=== PATIENT | female | born 1935 | race Caucasian/White ===

== ENCOUNTER 2017-08-24 10:58 | Inpatient (IN) | payer MEDICARE ==
[2017-08-24 12:14] LABS: ABS Basophils 0 10^3/ul (0-0.2); ABS Eosinophils 0 10^3/ul (0-0.6); ABS Lymphocytes 0.6 10^3/ul (1.0-4.8); ABS Monocytes 1.3 10^3/ul (0-0.8); ABS Neutrophils 11.3 10^3/ul (1.5-7.7); ABS Nucleated RBC 0 10^3/ul; Eosinophil % 0 % (0-6); Hematocrit 46 % (35-47); Hemoglobin 14.5 g/dl (12.0-16.0); Lymphocyte % 4.6 % (25-47); Mean Corpuscular HGB Conc 31 g/dl (31-36); Mean Corpuscular Hemoglobin 29 pg (27-31); Mean Corpuscular Volume 93 fL (80-97); Mean Platelet Volume 10 um3 (7.4-10.4); Nucleated Red Blood Cells % 0.1; Platelet Count 191 10^3/ul (150-450); Red Blood Count 4.99 10^6/ul (4.0-5.4); Red Cell Distribution Width 15 % (10.5-15); White Blood Count 13.3 10^3/ul (3.5-10.8)
--- NOTE | 2017-08-24 12:18 | RAD ---
Indication: Shortness of breath. Single frontal view of the chest performed at 1150 hours was reviewed. Comparison is made with previous exam dated March 21, 2011. Cardiomegaly is noted. Interstitial edema consistent with CHF is noted. Bilateral pleural effusions are noted. IMPRESSION: CARDIOMEGALY WITH INTERSTITIAL EDEMA AND BILATERAL PLEURAL EFFUSIONS CONSISTENT WITH CHF.
[2017-08-24 12:19] LABS: INR 1.64 (0.77-1.02)
[2017-08-24 12:32] LABS: EGFR Non-African American 37.1 (>60)
[2017-08-24] MEDS ORDERED: Dextrose 50% Syringe 50 ML* 25 GM/50 ML SYRINGE IV PUSH PRN ×2 (13:14→13:45)
[2017-08-24] MEDS ORDERED: Insulin LISPRO* 1 UNITS UNIT SUBCUT ONE ×2 (13:45→14:01)
[2017-08-24] MEDS ORDERED: Vancomycin per Pharmacy* NOTE FOLLOW UP SCH (14:00)
[2017-08-24] MEDS ORDERED: Ondansetron INJ* 2 MG/ML VIAL IV PRN (15:10)
--- NOTE | 2017-08-24 15:39 | CONSULT ---
Consult Consult: CRITICAL CARE MEDICINE CONSULT Date: 08/24/17 Time: 1445 Discussed with admitting REPORT DEVELOPER. REASON/CHIEF COMPLAINT: hepatitis HISTORY OF PRESENT ILLNESS: 82 yo female with original gallstone pancreatitis as she describes it to me in the past with chronic ailments, DM, who presented with nausea, vomiting. started 3 days ago but worst this am with vomiting. whatever goes in comes out. REVIEW OF SYSTEMS: As per HPI. no recent illness change shes aware of. + weight lost PAST MEDICAL HISTORY: As per HPI. MEDICATIONS: Reviewed. ALLERGIES: Reviewed. SOCIAL HISTORY: Reviewed. quit tob . son in area and grandkids. FAMILY HISTORY: Noncontributory at present. Vital Signs: Reviewed. Neurologic: awake, communicating HEENT: pupils equal. Sclera anicteric. Trachea midline. Cardiovascular: S1 S2 Respiratory: copd appearance, mus wasting, frail; dec at bases. mild wheeze Abdomen: Soft; some RUQ tenderness but No r/g/r. no masses Extremities: Warm. Access: piv LABS: Reviewed. IMAGING: Reviewed. MEDICATIONS: Reviewed. ASSESSMENT: 82 F with Acute hepatitis - r/o ischemic, infectious, toxic; or related to pancreatitis or masses DAVID looking prerenal Acute hypoxic resp failure new suppl O2 (although wears O2 nocturnally at home) B/l pleural effusions Lactic acidosis mild Coagulopathy sec to hepatic insult PLAN: Neuro: tolerating. CV: Mild LA with poor liver clearance at the moment but better perfusion reserve. Needs isotonic fluids. Avoid overload however. 2L bolus and re-assess. Can check echo to ensure R heart from underlying lung disease not our main contributor. Resp: Has significant bullous emphysema with pleural effusions already but intravascularly needs volume and interstially as well, but avoid lung water as able. Expland lungs. IS. Copd adjunctives. Early HFO2 is needed. GI: CT a/p. Previous pancreatitis and enzyme needs. Lipase pending. obtain records as she had recent CT and Mri for stomach work up Renal: DAVID looking pre-renal. K will come down with fluids. ID: Ct a/p pending and dont otherwise see need for abx for abacterial process at this time but f/u post ct for further planning; viral workup. check flu. Reactive wbc, crp and glu however and may have low threshold for empiric but certianly nontoxic at present. Heme: coagulopathy likely sec to liver insult. No bleeding but f/u for risk of dic or at least further consumption. Can reserve vit k. hsq for now. f/u for plt decline. Endo: f/u bg. Lantus needs. SSI. Hold metformin, glipizide. MS: oob as able. Needs ICU for now. will follow up. Supportive and preventative care as ordered. SUP: ppi VTE prophylaxis: heparin Code Status: Full presently Critical Care Time: 45 min FMonica Andrews DO
[2017-08-24] MEDS ORDERED: Vancomycin(*) 1,000 MG in NS 0.9% 250 ML* 250 ML IVPB ONE (16:00)
[2017-08-24] MEDS: Albuterol/Ipratropium NEB.SOL* Albuterol 2.5 MG/Ipratropium 0.5 MG 3 ML INH SCH ×2 (16:07→20:48)
[2017-08-24] MEDS: NS 0.9% 1000 ML* 2,000 ML IV ONE ×2 (16:18→23:42)
[2017-08-24] MEDS: Heparin VIAL(*) 5000 UNITS/ML VIAL (FIVE THOUSAND) SUBCUT SCH ×2 (16:29→21:49)
[2017-08-24] MEDS: Pantoprazole IV* 40 MG IV SCH (16:33)
[2017-08-24] MEDS: Metoclopramide TAB* 10 MG PO SCH (16:34)
--- NOTE | 2017-08-24 16:53 | ECHO ---
Patient: JAIR CORONADO [facility] Rec#: [id number] : 1935 Date: 08/24/2017 Age: 82y Height: 170.18 cm / 67.0 in Weight: 54.43 kg / 120.0 lbs Sex: F BSA: 1.63 Room#: [facility] Admit Date#: 08/24/2017 Type: Inpatient Referring: Kasey Foote Reading: Carlos Diane MD Handbag Stitcher: Rebecca Perez RDCS CC: Jaskaran Urena MD Transthoracic Echocardiogram Indication: CHF, dyspnea BP: 130/75 HR: 73 Rhythm: NSR Findings History: DMII, HLD, COPD, pancreatitis, osteoporosis. Technical Comments: The study quality is fair. The study is technically limited due to patient body habitus. Completed at 1630. Left Ventricle: The left ventricular chamber size is normal. Mild concentric left ventricular hypertrophy is observed. There is moderately decreased left ventricular systolic function. The estimated ejection fraction is 40-45%. There is septal flattening of the interventricular septum consistent with right ventricular volume or pressure overload. Paradoxical septal motion is also seen. Abnormal left ventricular diastolic function is observed. Abnormal left ventricular diastolic filling is observed, consistent with impaired relaxation. Left Atrium: The left atrium is mild to moderately dilated. Right Ventricle: Moderator Band present. The right ventricle is moderate to severely dilated. The right ventricular global systolic function is severely reduced. Flattened in systole and diastole consistent with right ventricular pressure and volume overload. Right Atrium: The right atrium is moderately dilated. Aortic Valve: The aortic valve is trileaflet. The aortic valve leaflets are mildly thickened. There is a trace of aortic regurgitation. There is no evidence of aortic stenosis. Mitral Valve: The mitral valve leaflets are mildly thickened. There is a trace of mitral regurgitation. There is no evidence of mitral stenosis. Tricuspid Valve: The tricuspid valve leaflets are mildly thickened. There is moderate tricuspid regurgitation. The right ventricular systolic pressure is estimated at 53 mmHg. There is evidence of moderate pulmonary hypertension. There is no tricuspid stenosis. Pulmonic Valve: The pulmonic valve appears normal. There is mild pulmonic regurgitation. There is no pulmonic stenosis. Pericardium: There is no significant pericardial effusion. A left pleural effusion is present. Aorta: There is no dilatation of the ascending aorta. There is no dilatation of the aortic arch. The aortic root is normal in size. Pulmonary Artery: The main pulmonary artery appears normal. Venous: The inferior vena cava is dilated. There is less than 50% respiratory change in the inferior vena cava dimension. Conclusions Mild concentric left ventricular hypertrophy is observed. There is moderately decreased left ventricular systolic function. The estimated ejection fraction is 40-45% . There is septal flattening of the interventricular septum consistent with right ventricular volume or pressure overload. Paradoxical septal motion is also seen. Abnormal left ventricular diastolic filling is observed, consistent with impaired relaxation. The left atrium is mild to moderately dilated. The right ventricle is moderate to severely dilated. The right ventricular global systolic function is severely reduced. Flattened in systole and diastole consistent with right ventricular pressure and volume overload. The right atrium is moderately dilated. There is moderate tricuspid regurgitation. There is evidence of moderate pulmonary hypertension. The right ventricular systolic pressure is estimated at 53 mmHg. There is mild pulmonic regurgitation. A left pleural effusion is present. No reports of prior studies are offered for comparison. Measurements Name Value Normal Range RVIDd (AP) 2D 3.3 cm (0.9 - 2.6) RVDdMajor (2D) 5.4 cm (2.2 - 4.4) RAd ISD 4CH 4.6 cm (3.4 - 4.9) RA (A4C)W 4.6 cm (2.9 - 4.6) IVSd (2D) 1.1 cm (0.6 - 1) LVPWd (2D) 1.1 cm (0.6 - 1) LVIDd (2D) 3.9 cm (3.6 - 5.4) LVIDs (2D) 3 cm - LV FS (2D) 24 % (25 - 45) Aortic Annulus 1.8 cm (1.4 - 2.6) Ao root diameter (2D) 3.1 cm (2.1 - 3.5) Ascending Ao 2.9 cm (2.1 - 3.4) Aortic arch 2.4 cm (1.8 - 3.4) LA dimension (AP) 2D 2.4 cm (2.3 - 3.8) LAd ISD 4CH 4.8 cm (2.9 - 5.3) LA ISD 4CH W 5.1 cm (2.5 - 4.5) Name Value Normal Range LA ESV SP 4CH (A/L) 67 ml - LA ESV SP 2CH (A/L) 62 ml - LA ESV BP (A/L) 67 ml - LA ESV BP (A/L) index 41 ml/m2 - LA ESV SP 4CH (MOD) 61 ml - LA ESV SP 2CH (MOD) 60 ml - Name Value Normal Range MV E-wave Vmax 0.52 m/sec - MV deceleration time 207.2 msec - MV A-wave Vmax 0.77 m/sec - MV E:A ratio 0.68 ratio - LV septal e' Vmax 0.04 m/sec - LV lateral e' Vmax 0.09 m/sec - LV E:e' septal ratio 13 ratio - LV E:e' lateral ratio 5.78 ratio - Name Value Normal Range AV Vmax 1.4 m/sec - AV VTI 22.6 cm - AV peak gradient 7.48 mmHg - AV mean gradient 3.44 mmHg - LVOT Vmax 1.12 m/sec - LVOT VTI 14.61 cm - LVOT peak gradient 5.04 mmHg - LVOT mean gradient 1.62 mmHg - ALEJANDRA Vmax 0.6 m/sec - Name Value Normal Range TR Vmax 3.1 m/sec - TR peak gradient 38 mmHg - RAP 15 mmHg - RVSP 53 mmHg - IVC diameter 2.5 cm - Name Value Normal Range PV Vmax 0.67 m/sec - PV peak gradient 1.8 mmHg - AL end-diastolic Vmax 1.49 m/sec -
[2017-08-24] MEDS ORDERED: Pancrelipase (NF) 6,000 UNITS CAP.DR PO SCH (17:00)
[2017-08-24] MEDS: Insulin LISPRO* 1 UNITS UNIT SUBCUT SCH ×2 (17:25→21:49)
[2017-08-24] MEDS: Insulin GLARGINE(*) 1 UNITS UNIT SUBCUT SCH (17:25)
--- NOTE | 2017-08-24 19:06 | HP ---
AMENDED REPORT NOW INCLUDES COSIGNER DESIGNATION - ESIGNED BEFORE ADJUSTMENTS ADMISSION HISTORY AND PHYSICAL: DATE OF ADMISSION: 08/24/17 PRIMARY CARE PHYSICIAN: Jaskaran Urena MD ATTENDING PHYSICIAN: Mynor Mcknight MD * (DICTATED BY MIRNA REYES NP) CHIEF COMPLAINT: Hyperglycemia and shortness of breath. HISTORY OF PRESENT ILLNESS: This is a very pleasant 82-year-old female patient who arrived with emergency medical services for a chief complaint of hyperglycemia from this morning. The patient reports that her blood glucose was 585 at home. The EMS report states her sugar on the way was 446. She has also had bouts with intermittent nausea and vomiting and cold-like symptoms. She does have an unproductive cough and she is feeling general malaise. Apparently, she was on Z- David as an outpatient. She is unsure as to why she was placed on the Z-David, but she also states that she has been having breathing issues on and off since April 2017. At this point, the patient is just complaining of general weakness. Denies any chest pain. Denies shortness of breath; however, her work of breathing is increased and denies any vomiting at this time. Has continued to have intermittent nausea, subjective chills, but no fevers at home. No arthralgias or myalgias, but overall malaise and intense fatigue. PAST MEDICAL HISTORY: Significant for: 1. Type 2 diabetes. 2. Osteoporosis. 3. Hyperlipidemia. 4. COPD. 5. Remote history of gallstone pancreatitis. 6. Breast cancer with mastectomy approximately 40 years ago. PAST SURGICAL HISTORY: 1. Left mastectomy. 2. Cholecystectomy in 2005. HOME MEDICATIONS: Currently takin. Cinnamon bark 500 mg daily. 2. Vitamin B12 500 mcg daily. 3. Lantus 20 units at night. 4. Metformin 750 mg 2 times a day. 5. Reglan 5 mg 3 times a day with meals. 6. Omeprazole 20 mg daily. 7. Pancrelipase, Creon 6000 units 3 times a day with meals. 8. Systane drops 1 drop each eye daily. 9. Glipizide 2.5 mg in the evening and 5 mg in the morning. 10. Also was recently started on Z-David. ALLERGIES: The patient has allergy to CLARITHROMYCIN, LEVOFLOXACIN, and TETRACYCLINE. The patient states she does not know what her reactions are. Again, she appears very fatigued and is having difficulty remembering certain things about her medical history and asks we refer to her son or PCP for further details. FAMILY HISTORY: Mother with cardiac disease. SOCIAL HISTORY: The patient has a remote history of smoking, quit in the 90s. Denies any alcohol use. Denies any illicit drug use. PHYSICAL EXAMINATION GENERAL: The patient is alert but fatigued appearing, otherwise well nourished and in no acute distress. VITAL SIGNS: Currently, blood pressure 130/75, heart rate 80, respiratory rate 22, sating at 100% on 2 L, temperature is 97.7. HEENT: The patient is atraumatic, normocephalic. PERRLA with nonicteric sclerae. NECK: Supple, nontender. No JVD noted. No carotid bruits auscultated. No thyromegaly appreciated. LUNGS: Clear at the apices. Coarse rales at the bases. Mild expiratory wheeze in the right base. CARDIOVASCULAR: S1, S2 are present. No murmurs, gallops, or rubs noted. She has regular sinus rhythm on telemetry with no ectopy. ABDOMEN: Soft, tender right upper quadrant, nondistended. No organomegaly noted. She has positive bowel sounds in all 4 quadrants. : Deferred. MUSCULOSKELETAL: There is no clubbing, no cyanosis, no edema. She has +2 distal pulses palpable on the lower extremities. NEUROLOGIC: She is grossly intact with no focal deficits. I think her memory issues right now are secondary to her acute illness. She does not have any underlying cognitive impairment. PSYCHIATRIC: She is cooperative and appropriate. LABORATORY DATA: Hematology shows WBC's 13.3, RBC's 4.99, hemoglobin of 14.5, hematocrit of 46, platelets 191,000, neutrophils 85.2, lymphocytes 4.6, monos 9.9, absolute neutrophils 11.3, absolute lymphocytes 0.6, and absolute monos 1.3. Sodium 134, potassium is still pending, chloride 96, CO2 of 26, BUN 61, creatinine 1.37, GFR is 37.1, glucose 371; however, this is being redrawn. Lactic acid is 2.2. Calcium 9.0, magnesium 2.0, bilirubin 1.9. Liver function is pending. Troponin is 0.04. CRP is 22.96. BNP is 1070. Total protein 6.5, albumin 3.9, globulin 2.6, TSH is also pending. Coags: INR is mildly elevated at 1.64. IMAGING: Chest x-ray showing bilateral pleural effusions with some pulmonary vascular congestion, some interstitial edema. Even though this is not on the radiology note, it does appear like she possibly has bibasilar infiltrates. EKG is showing sinus rhythm with atypical left bundle-branch block. IMPRESSION: This is an 82-year-old female patient who presents with acute shortness of breath, also extreme fatigue, nausea, and vomiting. The patient appears to be fluid overloaded. She has not had a history of congestive heart failure; however, by chest x-ray and symptoms and also with the elevated BNP, it appears that she is currently in failure. She has not had a recent echocardiogram. She cannot remember the last time that she had one, so she is going to be admitted. DIAGNOSES: 1. Congestive heart failure. 2. Bibasilar infiltrates. 3. Hyperglycemia. 4. General weakness. 5. Nausea and vomiting. 6. History of pancreatitis. 7. Gastroesophageal reflux disease. 8. Leukocytosis 9. Abdominal Pain PLAN: Admitted to medical service for inpatient treatment. Being that she failed her trial of azithromycin as an outpatient, we will cover her empirically with vancomycin pending blood cultures and sputum cultures at this time. If there is a change, then antibiotic therapy will be tailored based on those cultures. We will continue the patient's home medications of her, omeprazole, metoclopramide and her long-acting insulin. She has also been placed on sliding scale giving her 10 units of insulin now for her current high sugar and then she will be maintained on sliding scale with her long acting insulin. Again, this can be tailored depending on how her sugars run. We will hold on her supplements at this time and hold her metformin and her glipizide given her acute illness. We are pending also urinalysis and Legionella and Strep pneumo antigens in her urine. Even though she appears to be intravascularly dry, she did have a fluid bolus on the way into the ER. She will be given Lasix 20 mg daily and then pending her echocardiogram, may consider consulting Cardiology for this new diagnosis of heart failure. We will follow her daily labs, especially following her renal function, which seems to be elevated, pre-renal. She has not had a history of kidney disease in the past. Magnesium seems to be in good range right now. Also, we will be looking at her TSH when that comes back. Continue to trend her troponins for [address] her on a consistent carbohydrate diet with no sugar added. For DVT prophylaxis, she has been placed on heparin 5000 q.8 hours. She is a full code. Her medical healthcare proxy is her son, Ki, and also her roommate, her name is Alysa Diallo. They would be her points of contact in case of emergency. The rest of the patient's course would be determined by further diagnostics, laboratories and any other input from other providers as warranted during this admission. TIME SPENT: I had spent an excess of 75 minutes admitting this patient, 50% of which was [id number] with the rest of the time evaluating and implementing her plan of care. This plan has been discussed with Dr. Mynor Mcknight, the attending on this case who was in agreement with the plan. MIRNA HENSLEYMayur, METALLURGICAL SPECIALIST [id number]/CPS #: [id number] UPDATE: After initial admission, liver function tests came back elevated ECJ=7249, ALT= 1630. Patient reports no history of ingestion, no excess tylenol use, no report of liver disease. Concern that her pancreatitis may be returning vs. other liver etiology. Also K is elevated, as well as INR. Patient will require aggressive fluids, but in the setting of her heart failure, we will upgrade to ICU. I have ordered hepatitis panel, lipase, blood cultures and CT abdomen/ phased liver study with contrast. Per Dr. Andrews, Personal Computer Network Analyst, we will also add CT PE study, although it is less likely that she has had a PE. This plan was coordinated with Dr. Andrews and Dr. Mcknight. JORDAN
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
[2017-08-24] MEDS: COLESEVELAM 625 MG PO SCH (21:56)
[2017-08-24 22:42] LABS: Urine Appearance Cloudy; Urine Blood 1+ (Negative); Urine Color Amber; Urine Ketones Negative (Negative); Urine Protein 2+(100 mg/dL) (Negative); Urine Specific Gravity 1.019 (1.010-1.030); Urine Urobilinogen Negative (Negative)
[2017-08-25] MEDS ORDERED: Vancomycin(*) 750 MG in NS 0.9% 250 ML* 250 ML IVPB SCH (02:00)
[2017-08-25] MEDS: Albuterol/Ipratropium NEB.SOL* Albuterol 2.5 MG/Ipratropium 0.5 MG 3 ML INH SCH ×4 (02:28→19:27)
[2017-08-25 05:38] LABS: ABS Basophils 0 10^3/ul (0-0.2); ABS Eosinophils 0 10^3/ul (0-0.6); ABS Lymphocytes 0.9 10^3/ul (1.0-4.8); ABS Monocytes 1.1 10^3/ul (0-0.8); ABS Nucleated RBC 0.1 10^3/ul; Eosinophil % 0.1 % (0-6); Hematocrit 42 % (35-47); Hemoglobin 13.6 g/dl (12.0-16.0); Lymphocyte % 8.2 % (25-47); Mean Corpuscular HGB Conc 32 g/dl (31-36); Mean Corpuscular Hemoglobin 30 pg (27-31); Mean Corpuscular Volume 92 fL (80-97); Mean Platelet Volume 10 um3 (7.4-10.4); Nucleated Red Blood Cells % 0.6; Platelet Count 149 10^3/ul (150-450); Red Blood Count 4.59 10^6/ul (4.0-5.4); Red Cell Distribution Width 15 % (10.5-15)
[2017-08-25 05:43] LABS: INR 1.43 (0.77-1.02)
[2017-08-25 05:54] LABS: EGFR Non-African American 54.6 (>60)
[2017-08-25] MEDS: Heparin VIAL(*) 5000 UNITS/ML VIAL (FIVE THOUSAND) SUBCUT SCH ×2 (06:07→22:26)
[2017-08-25] MEDS: Insulin LISPRO* 1 UNITS UNIT SUBCUT SCH ×4 (07:45→21:47)
[2017-08-25] MEDS: Metoclopramide TAB* 10 MG PO SCH ×3 (08:00→17:00)
--- NOTE | 2017-08-25 08:56 | PN ---
Subjective Date of Service: 08/25/17 Interval History: Pt appears lethargic, rather poor historian, no event at night, refused CT last night Objective Active Medications: Albuterol/Ipratropium (Duoneb (Albuterol 2.5 Mg/Ipratropium 0.5 Mg)) 1 neb INH Q6H [facility] Last Admin: 08/25/17 08:22 Dose: Not Given Colesevelam HCl (Welchol(Nf)) 625 mg PO BID [facility] Last Admin: 08/24/17 21:56 Dose: 625 mg Cyanocobalamin (Vitamin B12 Tab*) 500 mcg PO DAILY [facility] Dextrose (D50w Syringe 50 Ml*) 12.5 gm IV PUSH .FOR FS < 60 - SS PRN PRN Reason: FS < 60 Enoxaparin Sodium (Lovenox(*)) 60 mg SUBCUT Q12H [facility] Vancomycin HCl 750 mg/ Sodium (Chloride) 250 mls @ 166.667 mls/hr IVPB Q12H [facility] Last Admin: 08/25/17 01:53 Dose: 166.667 mls/hr Insulin Glargine (Lantus(*)) 20 units SUBCUT QPM [facility] Last Admin: 08/24/17 17:25 Dose: 20 unit Insulin Human Lispro (Humalog*) 0 units SUBCUT ACHS [facility] PRN Reason: Protocol Last Admin: 08/25/17 07:45 Dose: Not Given Metoclopramide HCl (Reglan Tab*) 5 mg PO TID WITH MEALS [facility] Last Admin: 08/24/17 16:34 Dose: Not Given Morphine Sulfate (Morphine Inj (Syringe)*) 2 mg IV Q2H PRN PRN Reason: PAIN - MODERATE Ondansetron HCl (Zofran Inj*) 4 mg IV Q6H PRN PRN Reason: NAUSEA Pantoprazole Sodium (Protonix Iv*) 40 mg IV Q24H [facility] Last Admin: 08/24/17 16:33 Dose: 40 mg Pharmacy Consult (Vancomycin Per Pharmacy*) 1 note FOLLOW UP .VANC PER PHARMACY [facility] Pharmacy Profile Note (Vancomycin Trough Check) 1 note FOLLOW UP 1330 ONE Stop: 08/26/17 13:31 Polyvinyl Alcohol (Polyvinyl Alcohol 1.4% Opth*) 1 drop BOTH EYES DAILY [facility] Vital Signs - 8 hr 08/25/17 08/25/17 08/25/17 01:00 01:30 02:00 Temperature Pulse Rate 78 78 82 Respiratory 21 17 22 Rate Blood Pressure 108/70 108/66 117/72 (mmHg) O2 Sat by Pulse 94 96 95 Oximetry 08/25/17 08/25/17 08/25/17 02:01 02:30 03:00 Temperature Pulse Rate 83 80 78 Respiratory 18 18 21 Rate Blood Pressure 121/69 112/67 (mmHg) O2 Sat by Pulse 96 95 94 Oximetry 08/25/17 08/25/17 08/25/17 03:30 04:00 04:01 Temperature 97.6 F Pulse Rate 81 79 81 Respiratory 21 20 21 Rate Blood Pressure 120/74 114/69 (mmHg) O2 Sat by Pulse 93 93 93 Oximetry 08/25/17 08/25/17 08/25/17 04:30 05:00 05:30 Temperature Pulse Rate 80 76 73 Respiratory 19 25 21 Rate Blood Pressure 123/68 109/68 113/66 (mmHg) O2 Sat by Pulse 90 96 97 Oximetry 08/25/17 08/25/17 08/25/17 06:00 06:01 07:33 Temperature 98.4 F Pulse Rate 78 78 Respiratory 16 15 Rate Blood Pressure 112/69 (mmHg) O2 Sat by Pulse 95 95 Oximetry Oxygen Devices in Use Now: Nasal Cannula Appearance: 82 yo F in nAD, aAOx2, lethargic Eyes: No Scleral Icterus, PERRLA Ears/Nose/Mouth/Throat: NL Teeth, Lips, Gums, Mucous Membranes Moist Neck: NL Appearance and Movements; NL JVP Respiratory: Symmetrical Chest Expansion and Respiratory Effort, - - rales at RLL, crackles at LLL Cardiovascular: RRR, - Abdominal: NL Sounds; No Tenderness; No Distention, No Hepatosplenomegaly Lymphatic: No Cervical Adenopathy Extremities: No Clubbing, Cyanosis, - - tracxe R ankle edema L ankle +1 pitting edema Neurological: NL Muscle Strength and Tone Result Diagrams: 08/25/17 05:18 08/25/17 05:18 Additional Lab and Data: Lab Results 08/24/17 08/24/17 08/24/17 Range/Units 11:47 11:47 11:47 WBC 13.3 H (3.5-10.8) 10^3/ul RBC 4.99 (4.0-5.4) 10^6/ul Hgb 14.5 (12.0-16.0) g/dl Hct 46 (35-47) % MCV 93 (80-97) fL MCH 29 (27-31) pg MCHC 31 (31-36) g/dl RDW 15 (10.5-15) % Plt Count 191 (150-450) 10^3/ul MPV 10 (7.4-10.4) um3 Neut % (Auto) 85.2 H (38-83) % Lymph % (Auto) 4.6 L (25-47) % [place] % (Auto) 9.9 H (0-7) % Eos % (Auto) 0 (0-6) % Baso % (Auto) 0.3 (0-2) % Absolute Neuts (auto) 11.3 H (1.5-7.7) 10^3/ul Absolute Lymphs (auto) 0.6 L (1.0-4.8) 10^3/ul Absolute Monos (auto) 1.3 H (0-0.8) 10^3/ul Absolute Eos (auto) 0 (0-0.6) 10^3/ul Absolute Basos (auto) 0 (0-0.2) 10^3/ul Absolute Nucleated RBC 0 10^3/ul Nucleated RBC % 0.1 INR (Anticoag Therapy) (0.77-1.02) Sodium 134 (133-145) mmol/L Potassium 5.6 H (3.5-5.0) mmol/L Chloride 96 L (101-111) mmol/L Carbon Dioxide 26 (22-32) mmol/L Anion Gap 12 H (2-11) mmol/L BUN 61 H (6-24) mg/dL Creatinine 1.37 H (0.51-0.95) mg/dL Est GFR ( Amer) 47.7 (>60) Est GFR (Non-Af Amer) 37.1 (>60) BUN/Creatinine Ratio 44.5 H (8-20) Glucose 371 H (70-100) mg/dL Lactic Acid 2.2 H* (0.5-2.0) mmol/L Calcium 9.0 (8.6-10.3) mg/dL Magnesium 2.0 (1.9-2.7) mg/dL Total Bilirubin 1.90 H (0.2-1.0) mg/dL AST 2437 H (13-39) U/L ALT 1630 H (7-52) U/L Alkaline Phosphatase 98 (34-104) U/L Troponin I 0.04 H* (<0.04) ng/mL C-Reactive Protein 22.96 H (< 5.00) mg/L B-Natriuretic Peptide ( - 100) pg/mL Total Protein 6.5 (6.4-8.9) g/dL Albumin 3.9 (3.2-5.2) g/dL Globulin 2.6 (2-4) g/dL Albumin/Globulin Ratio 1.5 (1-3) Lipase Cancelled TSH 5.39 (0.34-5.60) mcIU/mL Salicylates < 2.50 (<30) mg/dL Acetaminophen < 15 mcg/mL 08/24/17 08/24/17 Range/Units 11:47 11:47 WBC (3.5-10.8) 10^3/ul RBC (4.0-5.4) 10^6/ul Hgb (12.0-16.0) g/dl Hct (35-47) % MCV (80-97) fL MCH (27-31) pg MCHC (31-36) g/dl RDW (10.5-15) % Plt Count (150-450) 10^3/ul MPV (7.4-10.4) um3 Neut % (Auto) (38-83) % Lymph % (Auto) (25-47) % [place] % (Auto) (0-7) % Eos % (Auto) (0-6) % Baso % (Auto) (0-2) % Absolute Neuts (auto) (1.5-7.7) 10^3/ul Absolute Lymphs (auto) (1.0-4.8) 10^3/ul Absolute Monos (auto) (0-0.8) 10^3/ul Absolute Eos (auto) (0-0.6) 10^3/ul Absolute Basos (auto) (0-0.2) 10^3/ul Absolute Nucleated RBC 10^3/ul Nucleated RBC % INR (Anticoag Therapy) 1.64 H (0.77-1.02) Sodium (133-145) mmol/L Potassium (3.5-5.0) mmol/L Chloride (101-111) mmol/L Carbon Dioxide (22-32) mmol/L Anion Gap (2-11) mmol/L BUN (6-24) mg/dL Creatinine (0.51-0.95) mg/dL Est GFR ( Amer) (>60) Est GFR (Non-Af Amer) (>60) BUN/Creatinine Ratio (8-20) Glucose (70-100) mg/dL Lactic Acid (0.5-2.0) mmol/L Calcium (8.6-10.3) mg/dL Magnesium (1.9-2.7) mg/dL Total Bilirubin (0.2-1.0) mg/dL AST (13-39) U/L ALT (7-52) U/L Alkaline Phosphatase (34-104) U/L Troponin I (<0.04) ng/mL C-Reactive Protein (< 5.00) mg/L B-Natriuretic Peptide 1070 H ( - 100) pg/mL Total Protein (6.4-8.9) g/dL Albumin (3.2-5.2) g/dL Globulin (2-4) g/dL Albumin/Globulin Ratio (1-3) Lipase TSH (0.34-5.60) mcIU/mL Salicylates (<30) mg/dL Acetaminophen mcg/mL Microbiology and Other Data: Microbiology 08/24/17 22:18 Legionella Urinary Antigen - Final Urine Negative Legionella Antigen Streptococcus pneumoniae Ag Screen - Final Negative S. pneumo Antigen 08/24/17 19:00 Influenza Types A,B Antigen (MILLY) - Final Nasal Specimen received for Influenza A/B Molecular testing Assess/Plan/Problems-Billing Assessment: 82 yo F with h/o COPD(on 02 at night) , DM2, pancreatic insufficiency and pseudocyst, s/p cholecystectomy for gallstone pancreatitis presents with SOB noted to have markedly elevated LFT's - Patient Problems (1) Cor pulmonale Comment: pt has increased pulm pressures and RV overload on Echo EF 40-45%, suspect cor pulmonale. CTA to r/o PE ponding, but will anticoagulate empirically with Lovenox for now. Pt apparently refused to have the CT done last night (2) LFT elevation Comment: Marked, consistent with hepatitis, likely due to passsive liver congestion Acute hepatitis panel pending appreciate Dr. Tony and Juliana's consults CT abd pelvis pending (3) Dyslipidemia Comment: Welchol stopped-can cause LFT elevation (4) DM2 (diabetes mellitus, type 2) Comment: oral hypoglycemics held cont ISS, Lantus (5) Hepatic encephalopathy Comment: pt is lethargic today, suspect hepatic encephalopathy, will start Lactulose once able to take PO after CT Ammonia 76 (6) Acute hypoxemic respiratory failure Comment: possible PE, also cor pulmonale No evidence of infection so far, will stop Vanco (7) Pancreatic insufficiency Comment: cont pancrelipase (8) DVT prophylaxis Comment: Lovenox Status and Disposition: inpatient
[2017-08-25] MEDS: Cyanocobalamin TAB* 500 MCG PO SCH (09:00)
[2017-08-25] MEDS: Artificial Tears* 15 ML BTL BOTH EYES SCH (09:00)
[2017-08-25] MEDS ORDERED: Omeprazole CAP* 20 MG PO SCH (09:00)
[2017-08-25] MEDS: COLESEVELAM 625 MG PO SCH ×2 (09:00→21:37)
[2017-08-25] MEDS: Lactulose* 15 ML UDC PO SCH ×3 (09:00→21:36)
[2017-08-25] MEDS ORDERED: Enoxaparin(*) 60 MG/0.6 ML SYR SUBCUT SCH (09:00)
[2017-08-25] MEDS ORDERED: Iodixanol* (CONTRAST) 320 MG/ML 100 ML SDV IV ONE (12:26)
[2017-08-25] MEDS: Pancrelipase CAP* 5,000 UNITS CAP PO SCH ×2 (13:00→17:00)
--- NOTE | 2017-08-25 13:39 | RAD ---
INDICATION: Chest pain and shortness of breath. COMPARISON: Comparison is made with a prior CT angiogram of the chest from June 15, 2013 and a prior chest x-ray study from August 24, 2017. TECHNIQUE: A CT angiogram of the chest was performed with intravenous following intravenous injection of 100 ml of Visipaque 320 nonionic contrast. Contiguous axial sections were obtained from the lung apices through the lung bases. Images were reconstructed in the coronal and sagittal planes. FINDINGS: There is motion artifact limiting evaluation of the pulmonary arteries. This especially limits evaluation of the basilar segmental arteries. There is enlargement of the central pulmonary arteries consistent with pulmonary artery hypertension. No intraluminal filling defect or pulmonary embolism is seen. The heart is moderately enlarged. No pericardial effusion is present. There appears to be left ventricular hypertrophy and enlargement of both the right ventricle and right atrium. There are coronary artery calcifications present. The thoracic aorta is normal in caliber and demonstrates homogeneous contrast opacification. No significant enlarged mediastinal or hilar lymph nodes are seen. There is moderate centrilobular emphysematous change with a large emphysematous bulla present in the region of the right middle lobe. There are moderate to large bilateral pleural effusions and dependent bilateral lower lobe infiltrates most consistent with atelectasis. There is mild prominence of the interstitial markings. These findings are most consistent with congestive heart failure. There are bridging syndesmophytes throughout the dorsal spine suggesting the possibility of ankylosing spondylitis. There is a chronic compression fracture of the T5 vertebral body. No other focal osseous abnormalities are seen. IMPRESSION: 1. LIMITED STUDY, NO PULMONARY EMBOLISM IS SEEN. 2. MODERATE TO LARGE BILATERAL PLEURAL EFFUSIONS AND FINDINGS MOST CONSISTENT WITH CONGESTIVE HEART FAILURE. 3. CARDIOMEGALY AND FINDINGS SUGGESTIVE OF PULMONARY ARTERY HYPERTENSION.
--- NOTE | 2017-08-25 14:33 | RAD ---
INDICATION: Abdominal pain elevated liver function tests. COMPARISON: Comparison is made with a prior CT of the abdomen and pelvis from July 24, 2007. TECHNIQUE: A CT scan of the abdomen was performed without and with intravenous contrast enhancement and with oral contrast. The contrast enhanced portion of the exam was performed during the arterial, portal venous phases and a delayed dataset was obtained. The pelvis is included on the portal venous phase images. The exam was performed following intravenous injection of 100 ml of Visipaque 320 nonionic contrast. Contiguous axial sections were obtained from the lung bases through the tops of the iliac crests. Images were reconstructed in the coronal and sagittal planes. FINDINGS: Images at the lung bases demonstrate bilateral pleural effusions and dependent bilateral lower lobe infiltrates. The liver and spleen are normal in size without significant focal abnormality. The patient is status post cholecystectomy. No intra or extrahepatic ductal distention is seen. There is a hypodense mass in the pancreatic tail with likely marked expansion of the pancreatic duct in this region. This appears to be the remnant of a large pseudocyst that is seen on a study from July 24, 2007. The adrenal glands appear to be within normal limits. The right kidney appears malrotated and slightly ptotic in location. No hydronephrosis is present. There is a small left renal cyst. The aorta is normal in caliber with moderate calcific plaque present. No significant enlarged retroperitoneal lymph nodes are seen. The stomach small and large bowel appear nondistended. There is moderate to severe sigmoid diverticulosis without evidence for diverticulitis. No free intraperitoneal air or fluid is seen. There is diffuse body wall edema. No significant focal osseous abnormality is seen.. There is a area of soft tissue calcification in the posterior medial left gluteal fold possibly from prior injections IMPRESSION: 1. NO EVIDENCE FOR FOCAL HEPATIC LESION. 2. STATUS POST CHOLECYSTECTOMY. 3. HYPODENSE LESION IN THE PANCREATIC TAIL CONSISTENT WITH A REMNANT FROM A PREVIOUSLY DESCRIBED LARGE PSEUDOCYST. 4. ANASARCA. 5. NO EVIDENCE FOR ACUTE ABDOMINAL FINDING.
[2017-08-25] MEDS: Furosemide IV* 10 MG/ML VIAL (40 MG) IV SCH (14:46)
--- NOTE | 2017-08-25 14:52 | PN ---
Progress Note - Progress Note Date of Service: 08/25/17 Note: CRITICAL CARE MEDICINE CONSULT Date: 08/25/17 Time: 1110 SUBJECTIVE: patient seen and examined this am. Tolerating. conversive but appearing tired overall without acute distress. Vital Signs: Reviewed. Neurologic: awake, communicating (as above) HEENT: pupils equal. Sclera anicteric. Trachea midline. Cardiovascular: S1 S2, 2/6 aníbal, inc jvp Respiratory: dec at bases; poor effort; upper lobe resps without wheeze Abdomen: Soft; RUQ tenderness gone today. Extremities: Warm. Access: picc LABS: Reviewed. IMAGING: Reviewed. MEDICATIONS: Reviewed. ASSESSMENT: 82 F with Acute hepatitis - r/o ischemic, infectious, toxic; or less likely related to pancreatitis or masses DAVID looking prerenal with some improvement Acute hypoxic resp failure new suppl O2 (although wears O2 nocturnally at home) Cor pulmonale Bullous emphysema B/l pleural effusions Lactic acidosis - recovered Coagulopathy - sec to hepatic insult? PLAN: Neuro: tolerating but mild encephalopathy. CV: perfusing but poor reserve. Has adequete(it would seem) intravasc vol with stable Hr, bp at least. interstially holding onto volume; see if she desires to keep for right heart or can mobilize and question diuretic needs. has significant effusions and poor mobilization there. Resp: for CTA to r/o pe. pretest in moderate range and given lovenox while awaiting scans. cor pulmonale likely sec to lung disease, but at risk for vte disease. worried her lung status is quite weak. f/u ct. Expland lungs. IS. Copd adjunctives.. GI: CT a/p pending. Previous pancreatitis. lipase benign. ct scan from about a month ago with ok liver and mri not indicating panc ca. looking more congestive potentially vs ischemic nature. ct may help deliniate further. at least enzymes down but given acute nature ammonia and encephlaopthy may still rise. lactulose. f/u level richard Renal: DAVID with some fluid responsiveness but trying not to overload. poor balanvce here and renal function may still falter. ID: work up but no abx needs i see Heme: coagulopathy mildly improved. can sort post ct. Endo: f/u bg, Lantus needs. SSI. Holding metformin, glipizide. MS: oob as able. ICU for now Supportive and preventative care as ordered. SUP: ppi VTE prophylaxis: heparin Code Status: Full presently Critical Care Time: 30 min ADDENDUM: Post CT scan. no pe to my eye. effusions and empysema not surprising. pt clinically obtunded now however with combination likely from failing ventilation with CO2 rise, effusions and laying flat and perhaps increased hepatic encephalopathy. Dismal status but best for her to try bipap now to see if we can rescue with time and clearance. If she fails to intubation, with her cor pulmonlae and lung disease, she will only do worse. primary team contacting family. D/w Dr. Melendez. Serenity Andrews, DO
--- NOTE | 2017-08-25 15:12 | PN ---
Progress Note - Progress Note Date of Service: 08/25/17 Note: CRITICAL CARE MEDICINE Date: 08/25/17 Time: 1500 D/w son Kingston Duenas via the phone. discussed pts dynamics and ailment presently. He is realistic, and states mom would be too. Advised to treat, use bipap for now and see if we can reverse this acute on chronic component today; but if failing, unlikely to amount response to thrive due to cardiopulm failures leading to liver and renal failures. We agree to support as DNR, DNI, trial niv. Molst reflective of conversation. Code Status: DNR, DNI Critical Care Time: 20 min Serenity Andrews DO
[2017-08-25 16:44] LABS: Hematocrit 46 % (35-47); Hemoglobin 14.5 g/dl (12.0-16.0); Mean Corpuscular HGB Conc 32 g/dl (31-36); Mean Corpuscular Hemoglobin 30 pg (27-31); Mean Corpuscular Volume 93 fL (80-97); Mean Platelet Volume 10 um3 (7.4-10.4); Platelet Count 138 10^3/ul (150-450); Red Blood Count 4.92 10^6/ul (4.0-5.4); Red Cell Distribution Width 15 % (10.5-15); White Blood Count 10.8 10^3/ul (3.5-10.8)
[2017-08-25 17:20] LABS: ABS Basophils 0 10^3/ul (0-0.2); ABS Eosinophils 0 10^3/ul (0-0.6); ABS Lymphocytes 0.7 10^3/ul (1.0-4.8); ABS Neutrophils 9.1 10^3/ul (1.5-7.7); ABS Nucleated RBC 0.1 10^3/ul; Eosinophil % 0 % (0-6); Lymphocyte % 6.6 % (25-47); Nucleated Red Blood Cells % 0.7
[2017-08-25] MEDS: Insulin GLARGINE(*) 1 UNITS UNIT SUBCUT SCH (19:41)
[2017-08-25] MEDS: Pantoprazole IV* 40 MG IV SCH (21:47)
--- NOTE | 2017-08-25 22:23 | CONS ---
GASTROENTEROLOGY CONSULTATION REPORT: DATE OF CONSULT: 08/25/17 ATTENDING PHYSICIAN: Mynor Mcknight MD PRIMARY CARE PHYSICIAN: Jaskaran Urena MD REASON FOR CONSULT: Acute liver failure. HISTORY OF PRESENT ILLNESS: The patient is an 82-year-old female who arrived to the emergency department with complaints of significant hyperglycemia with intermittent complaints of nausea and vomiting. She had recently been diagnosed with an upper respiratory infection and was given a Z-David as an outpatient. She apparently has been having breathing issues that have been progressively worsening over the last few months. Gastroenterology was consulted for abnormal liver enzymes that were noted on laboratory work in the emergency room. AST was 2437 and ALT 1630. According to the medical records, the patient was also complaining of generalized weakness and dyspnea on exertion , subjective chills; however, there were no documented fevers at home. She is currently in the intensive care unit for hyperglycemia, respiratory distress, somnolence and significantly elevated liver enzymes. PAST MEDICAL HISTORY: 1. Type 2 diabetes. 2. Hyperlipidemia. 3. COPD. 4. Osteoporosis. 5. History of gallstone pancreatitis with large pseudocyst s/p resection. 6. Breast cancer with mastectomy. PAST SURGICAL HISTORY: 1. Left mastectomy. 2. Cholecystectomy in 2005. 3. Large pseudocyst resection. HOME MEDICATIONS: 1. Cinnamon bark. 2. Vitamin B12. 3. Lantus. 4. Metformin. 5. Reglan. 6. Omeprazole. 7. Pancrelipase. 8. Systane. 9. Glipizide. 10. Z-David. ALLERGIES: CLARITHROMYCIN, LEVOFLOXACIN, TETRACYCLINE, unknown reactions due to patient being a poor historian. FAMILY HISTORY: Mother with cardiac disease. SOCIAL HISTORY: She quit tobacco in the . Denies recreational drug use and alcohol use. REVIEW OF SYSTEMS: On a 14-point scale has been reviewed, all pertinent positives and negatives are noted above in the HPI. PHYSICAL EXAM: Generally, the patient appears to be well nourished. She is slightly somnolent and fatigued appearing; however, she does respond to her name and is answering questions appropriately. Current vital signs: Temperature 98.4, heart rate 80, respirations 17, oxygenation is 96% on room air , blood pressure is 125/73. HEENT: Anicteric sclerae bilaterally. Atraumatic , normocephalic. Neck: Supple. Lungs: Clear to auscultation bilaterally. Cardiovascular Exam: Regular rate and rhythm. Abdomen: Soft, nontender, nondistended. No rebound, guarding or rigidity. Positive bowel sounds in 4 quadrants. No hepatomegaly. No fluid wave. Musculoskeletal: No clubbing, cyanosis, or edema. Neurological Exam: There are no gross focal deficits. She is currently slightly somnolent, but answering questions appropriately. DIAGNOSTIC STUDIES/LAB DATA: WBC is 10.8, hemoglobin 14.5, hematocrit 46, platelets 138. INR 1.43. Sodium 138, potassium 4.7, chloride 105, CO2 30, anion gap 4, BUN 53, creatinine 0.98. Calcium 7.9, phosphorus 5.2, magnesium 2.0. Total bilirubin 1.20, direct bilirubin 0.70, indirect bilirubin 0.5, AST 1527, ALT 1426, alkaline phosphatase 76, ammonia 76. Troponin x2 0.04. Albumin 3.6, globulin 2.2. Influenza A and B are negative. CT of the abdomen, pelvis, and chest revealed no evidence of focal hepatic lesions, status post cholecystectomy, hypodense lesions in the pancreatic tail consistent with a remnant from a previously described large pseudocyst, anasarca. No acute abdominal findings. There were [id number] bilateral pleural effusions consistent with congestive heart failure, cardiomegaly with finding suggestive of pulmonary artery hypertension. ASSESSMENT AND PLAN: The patient is an 82-year-old female with a past medical history of chronic obstructive pulmonary disease, diabetes type 2, previous history of a large pancreatic pseudocyst s/p resection with gallstone pancreatitis, status post cholecystectomy, breast cancer with mastectomy, who presented to [facility] ER with hyperglycemia, progressive dyspnea on exertion, progressive weakness with recent treatment of an upper respiratory infection. The patient was admitted to the intensive care unit for further evaluation and treatment due to mild respiratory distress, significantly elevated liver enzymes with coagulopathy suggestive of acute liver failure, and hyperglycemia. The transaminases have since down trended from admission. Her alkaline phosphatase remains normal and her total bilirubin has decreased since admission and remains only mildly elevated along with the patient's INR. The patient's hepatitis panel is currently pending. The patient had been Welchol, which has been discontinued due to significantly elevated liver tests. Lactulose was initiated after CT imaging. Her current ammonia level is 76. Hopefully, her somnolence will improve after treatment. Etiology of the patient 's elevated liver enzymes may also be secondary to the patient's congestive heart failure through congestive hepatopathy given anasarca and large pleural effusions seen on CT imaging. Again, her liver enzymes have been down trending in addition to her INR. We will continue to monitor these levels. Will hold off on extensive genetic and autoimmune liver work-up for due to acuity of acute liver failure and patient's age for now. There has been no documented evidence of hypotension to suggest ischemia at this time but will monitor. Will also monitor patient's respiratory status. Further workup and treatment will be provided as the patient's clinical course progresses. Thank you, Dr. Melendez and Dr. Andrews, for allowing us to participate in the care of your patient. If you should have any further questions or concerns, please do not hesitate to contact us. [id number]/[facility] #: [id number] JORDAN
[2017-08-26] MEDS: Albuterol/Ipratropium NEB.SOL* Albuterol 2.5 MG/Ipratropium 0.5 MG 3 ML INH SCH ×4 (01:33→18:58)
[2017-08-26] MEDS: Heparin VIAL(*) 5000 UNITS/ML VIAL (FIVE THOUSAND) SUBCUT SCH ×3 (06:26→22:03)
[2017-08-26 06:49] LABS: Hematocrit 44 % (35-47); Hemoglobin 13.8 g/dl (12.0-16.0); Mean Corpuscular HGB Conc 32 g/dl (31-36); Mean Corpuscular Hemoglobin 29 pg (27-31); Mean Corpuscular Volume 93 fL (80-97); Mean Platelet Volume 9 um3 (7.4-10.4); Platelet Count 119 10^3/ul (150-450); Red Blood Count 4.71 10^6/ul (4.0-5.4); Red Cell Distribution Width 15 % (10.5-15); White Blood Count 9.4 10^3/ul (3.5-10.8)
[2017-08-26 07:02] LABS: EGFR Non-African American 72.1 (>60)
[2017-08-26 07:27] LABS: ABS Basophils 0 10^3/ul (0-0.2); ABS Eosinophils 0 10^3/ul (0-0.6); ABS Lymphocytes 0.4 10^3/ul (1.0-4.8); ABS Neutrophils 7.9 10^3/ul (1.5-7.7); ABS Nucleated RBC 0.1 10^3/ul; Eosinophil % 0.1 % (0-6); Lymphocyte % 4.4 % (25-47); Nucleated Red Blood Cells % 0.5
[2017-08-26] MEDS: Insulin LISPRO* 1 UNITS UNIT SUBCUT SCH ×2 (07:30→12:30)
--- NOTE | 2017-08-26 09:24 | PN ---
Subjective Date of Service: 08/26/17 Interval History: Pt continues to be BIPAP dependent, very weak , unable to hold her head up, but moves all extremities spontaneously. Unable to converse, but alert Objective Active Medications: Albuterol/Ipratropium (Duoneb (Albuterol 2.5 Mg/Ipratropium 0.5 Mg)) 1 neb INH Q6H [facility] Last Admin: 08/26/17 08:07 Dose: 1 neb Colesevelam HCl (Welchol(Nf)) 625 mg PO BID [facility] Last Admin: 08/25/17 21:37 Dose: Not Given Cyanocobalamin (Vitamin B12 Tab*) 500 mcg PO DAILY [facility] Last Admin: 08/25/17 09:00 Dose: Not Given Dextrose (D50w Syringe 50 Ml*) 12.5 gm IV PUSH .FOR FS < 60 - SS PRN PRN Reason: FS < 60 Furosemide (Lasix Iv*) 40 mg IV DAILY [facility] Last Admin: 08/25/17 14:46 Dose: 40 mg Heparin Sodium (Porcine) (Heparin Flush Picc/Ml/Cvc(*)) 1 - 3 ml FLUSH 0600, 1800 [facility] PRN Reason: Protocol Last Admin: 08/26/17 06:26 Dose: 2 ml Heparin Sodium (Porcine) (Heparin Vial(*)) 5,000 units SUBCUT Q8HR [facility] Last Admin: 08/26/17 06:26 Dose: 5,000 units Insulin Glargine (Lantus(*)) 10 units SUBCUT QPM [facility] Insulin Human Lispro (Humalog*) 0 units SUBCUT ACHS [facility] PRN Reason: Protocol Last Admin: 08/26/17 07:30 Dose: Not Given Lactulose (Lactulose*) 15 ml PO TID [facility] Last Admin: 08/25/17 21:36 Dose: Not Given Metoclopramide HCl (Reglan Tab*) 5 mg PO TID WITH MEALS [facility] Last Admin: 08/25/17 17:00 Dose: Not Given Morphine Sulfate (Morphine Inj (Syringe)*) 2 mg IV Q2H PRN PRN Reason: PAIN - MODERATE Ondansetron HCl (Zofran Inj*) 4 mg IV Q6H PRN PRN Reason: NAUSEA Pancrelipase (Zenpep Delayed Cap*) 5,000 units PO AC [facility] Last Admin: 08/25/17 17:00 Dose: Not Given Pantoprazole Sodium (Protonix Iv*) 40 mg IV Q24H [facility] Last Admin: 08/25/17 21:47 Dose: Not Given Polyvinyl Alcohol (Polyvinyl Alcohol 1.4% Opth*) 1 drop BOTH EYES DAILY [facility] Last Admin: 08/25/17 09:00 Dose: Not Given Vital Signs - 8 hr 08/26/17 08/26/17 08/26/17 01:34 02:00 03:00 Temperature 97.0 F 96.4 F Pulse Rate 92 90 87 Respiratory 22 20 20 Rate Blood Pressure 139/68 142/69 (mmHg) O2 Sat by Pulse 89 94 95 Oximetry 08/26/17 08/26/17 08/26/17 03:09 04:00 05:00 Temperature 95.9 F 95.7 F Pulse Rate 86 84 73 Respiratory 24 20 20 Rate Blood Pressure 109/63 102/56 (mmHg) O2 Sat by Pulse 95 95 95 Oximetry 08/26/17 08/26/17 08/26/17 06:00 07:00 08:10 Temperature 96.4 F 97.7 F Pulse Rate 76 84 85 Respiratory 22 21 15 Rate Blood Pressure 106/60 115/62 (mmHg) O2 Sat by Pulse 95 94 98 Oximetry Oxygen Devices in Use Now: BiPAP Appearance: 82 yo F, when take off BIPAP, alert, but appears to weak to speak, responds appropiately to stimuli Eyes: No Scleral Icterus, PERRLA Ears/Nose/Mouth/Throat: NL Teeth, Lips, Gums, Mucous Membranes Moist Neck: NL Appearance and Movements; NL JVP Respiratory: Symmetrical Chest Expansion and Respiratory Effort, - - decreased breath sounds at bases, otherwise clear B/l Cardiovascular: NL Sounds; No Murmurs; No JVD, RRR Abdominal: NL Sounds; No Tenderness; No Distention Lymphatic: No Cervical Adenopathy Extremities: No Clubbing, Cyanosis, - - L ankle +1 edema Skin: No Rash or Ulcers Neurological: - - too weak to hold her head up or speak, motor in all axtremities at 5/5, no asterixis noted Result Diagrams: 08/26/17 06:37 08/26/17 06:37 Additional Lab and Data: Lab Results 08/24/17 08/24/17 08/24/17 Range/Units 11:47 11:47 11:47 WBC 13.3 H (3.5-10.8) 10^3/ul RBC 4.99 (4.0-5.4) 10^6/ul Hgb 14.5 (12.0-16.0) g/dl Hct 46 (35-47) % MCV 93 (80-97) fL MCH 29 (27-31) pg MCHC 31 (31-36) g/dl RDW 15 (10.5-15) % Plt Count 191 (150-450) 10^3/ul MPV 10 (7.4-10.4) um3 Neut % (Auto) 85.2 H (38-83) % Lymph % (Auto) 4.6 L (25-47) % [place] % (Auto) 9.9 H (0-7) % Eos % (Auto) 0 (0-6) % Baso % (Auto) 0.3 (0-2) % Absolute Neuts (auto) 11.3 H (1.5-7.7) 10^3/ul Absolute Lymphs (auto) 0.6 L (1.0-4.8) 10^3/ul Absolute Monos (auto) 1.3 H (0-0.8) 10^3/ul Absolute Eos (auto) 0 (0-0.6) 10^3/ul Absolute Basos (auto) 0 (0-0.2) 10^3/ul Absolute Nucleated RBC 0 10^3/ul Nucleated RBC % 0.1 INR (Anticoag Therapy) (0.77-1.02) Sodium 134 (133-145) mmol/L Potassium 5.6 H (3.5-5.0) mmol/L Chloride 96 L (101-111) mmol/L Carbon Dioxide 26 (22-32) mmol/L Anion Gap 12 H (2-11) mmol/L BUN 61 H (6-24) mg/dL Creatinine 1.37 H (0.51-0.95) mg/dL Est GFR ( Amer) 47.7 (>60) Est GFR (Non-Af Amer) 37.1 (>60) BUN/Creatinine Ratio 44.5 H (8-20) Glucose 371 H (70-100) mg/dL Lactic Acid 2.2 H* (0.5-2.0) mmol/L Calcium 9.0 (8.6-10.3) mg/dL Magnesium 2.0 (1.9-2.7) mg/dL Total Bilirubin 1.90 H (0.2-1.0) mg/dL AST 2437 H (13-39) U/L ALT 1630 H (7-52) U/L Alkaline Phosphatase 98 (34-104) U/L Troponin I 0.04 H* (<0.04) ng/mL C-Reactive Protein 22.96 H (< 5.00) mg/L B-Natriuretic Peptide ( - 100) pg/mL Total Protein 6.5 (6.4-8.9) g/dL Albumin 3.9 (3.2-5.2) g/dL Globulin 2.6 (2-4) g/dL Albumin/Globulin Ratio 1.5 (1-3) Lipase Cancelled TSH 5.39 (0.34-5.60) mcIU/mL Salicylates < 2.50 (<30) mg/dL Acetaminophen < 15 mcg/mL 08/24/17 08/24/17 Range/Units 11:47 11:47 WBC (3.5-10.8) 10^3/ul RBC (4.0-5.4) 10^6/ul Hgb (12.0-16.0) g/dl Hct (35-47) % MCV (80-97) fL MCH (27-31) pg MCHC (31-36) g/dl RDW (10.5-15) % Plt Count (150-450) 10^3/ul MPV (7.4-10.4) um3 Neut % (Auto) (38-83) % Lymph % (Auto) (25-47) % [place] % (Auto) (0-7) % Eos % (Auto) (0-6) % Baso % (Auto) (0-2) % Absolute Neuts (auto) (1.5-7.7) 10^3/ul Absolute Lymphs (auto) (1.0-4.8) 10^3/ul Absolute Monos (auto) (0-0.8) 10^3/ul Absolute Eos (auto) (0-0.6) 10^3/ul Absolute Basos (auto) (0-0.2) 10^3/ul Absolute Nucleated RBC 10^3/ul Nucleated RBC % INR (Anticoag Therapy) 1.64 H (0.77-1.02) Sodium (133-145) mmol/L Potassium (3.5-5.0) mmol/L Chloride (101-111) mmol/L Carbon Dioxide (22-32) mmol/L Anion Gap (2-11) mmol/L BUN (6-24) mg/dL Creatinine (0.51-0.95) mg/dL Est GFR ( Amer) (>60) Est GFR (Non-Af Amer) (>60) BUN/Creatinine Ratio (8-20) Glucose (70-100) mg/dL Lactic Acid (0.5-2.0) mmol/L Calcium (8.6-10.3) mg/dL Magnesium (1.9-2.7) mg/dL Total Bilirubin (0.2-1.0) mg/dL AST (13-39) U/L ALT (7-52) U/L Alkaline Phosphatase (34-104) U/L Troponin I (<0.04) ng/mL C-Reactive Protein (< 5.00) mg/L B-Natriuretic Peptide 1070 H ( - 100) pg/mL Total Protein (6.4-8.9) g/dL Albumin (3.2-5.2) g/dL Globulin (2-4) g/dL Albumin/Globulin Ratio (1-3) Lipase TSH (0.34-5.60) mcIU/mL Salicylates (<30) mg/dL Acetaminophen mcg/mL Microbiology and Other Data: Microbiology 08/24/17 22:18 Legionella Urinary Antigen - Final Urine Negative Legionella Antigen Streptococcus pneumoniae Ag Screen - Final Negative S. pneumo Antigen 08/24/17 19:00 Influenza Types A,B Antigen (MILLY) - Final Nasal Specimen received for Influenza A/B Molecular testing Assess/Plan/Problems-Billing Assessment: 82 yo F with h/o COPD(on 02 at night) , DM2, pancreatic insufficiency and pseudocyst, s/p cholecystectomy for gallstone pancreatitis presents with SOB noted to have markedly elevated LFT's - Patient Problems (1) Acute hypercapnic respiratory failure Comment: developed on 08/25/17, pt was placed on BIPAP due to marked respiratory acidosis. suspect due to a combination of encephalopathy (hepatic) and b/l peural effusions (likely transudatve due to CHF). Now DNR/DNI, cont BIPAP appreciate DR. Andrews's help (2) Cor pulmonale Comment: pt has increased pulm pressures and RV overload on Echo EF 40-45%, suspect cor pulmonale possible due to severe COPD(large bullae noted on CT) CTA neg for PE, large effusions b/l noted. (3) LFT elevation Comment: Marked, consistent with hepatitis, likely due to passsive liver congestion-improving daily Acute hepatitis panel neg CT abd shows fibrotic change in pancreas(known) and anasarca appreciate Dr. Tony and Juliana's consults (4) Dyslipidemia Comment: Welchol stopped-can cause LFT elevation (5) DM2 (diabetes mellitus, type 2) Comment: oral hypoglycemics held cont ISS, Lantus (dose lowered to 10 U from 20 due to pt's NPO status) (6) Hepatic encephalopathy Comment: suspect hepatic encephalopathy, will try PO lactulose, Ammonia level up to 98 and pt was unable to be treated with Lactulose yesterday due to BIPAP. IF PO fails, we either need to start lactulose enemas or via NG tube, unsusre if son will agree with any of the options. (7) Acute hypoxemic respiratory failure Comment: due to b/l peural effusions, R heart failure/cor pulmonale cont IV Lasix daily, good UO and BP holding for now.Encouraging is that pt's LFT 's are still improving with diuresis. (8) Pancreatic insufficiency Comment: on pancrelipase at home, on hold till able to take PO (9) DVT prophylaxis Comment: HSQ Status and Disposition: inpatient
[2017-08-26] MEDS: Lactulose* 15 ML UDC PO SCH ×3 (09:35→22:03)
[2017-08-26] MEDS: Artificial Tears* 15 ML BTL BOTH EYES SCH (09:35)
[2017-08-26] MEDS: Furosemide IV* 10 MG/ML VIAL (40 MG) IV SCH (09:35)
--- NOTE | 2017-08-26 10:29 | PN ---
Progress Note - Progress Note Date of Service: 08/26/17 Note: CRITICAL CARE MEDICINE Date: 08/26/17 Time: 1000 SUBJECTIVE: patient seen and examined this am. bipap overnight. more conversive to nursing when first off and now lethargic headed back to obtundation. Vital Signs: Reviewed. Neurologic: awakes to pain (as above) HEENT: pupils equal. Sclera anicteric. Trachea midline. Cardiovascular: S1 S2, 2/6 aníbal, inc jvp Respiratory: dec at bases; poor effort Abdomen: Soft; no pain Extremities: Warm. Access: picc LABS: Reviewed. IMAGING: Reviewed. MEDICATIONS: Reviewed. ASSESSMENT: 82 F with Acute hepatitis - sec to cor pulmonale DAVID on admission - somewhat improved Acute hypoxic and hypercarbic resp failure Cor pulmonale Bullous emphysema B/l pleural effusions Lactic acidosis on admission - recovered Coagulopathy - sec to hepatic insult Metabolic and Hepatic encephalopathy PLAN: Neuro: encephalopathy had worsened yesterday. combination, including acute hepatic. hopefully if the hepatic insult can clear (as lfts are) then ammonia clearance dissipate then perhaps she will be able to maintain; however still a large component of metabolic/hypercapnic that certainly seems to correct with bipap but nonsustainable. can keep utilizing bipap for now, again, to see if ammonia clearance beneficial with lactulose use and then if any stability of encephalopathy over next 24-48h. After that, and the reason that hepatic became ailment initially, still going to be the main ailment and cause her demise from cor pulmonale sec to bullous emphysema. try and keep on dry end with lasix, although R heart patency of flow may disagree; risk/benefit against thoracentesis. Copd adjunctives. IS & OOB if able. D/w son yesterday as pt without capacity: DNR/DNI Care per medicine. Supportive and preventative care as ordered. Code Status: DNR/DNI, trial niv Critical Care Time: 30 min Serenity Andrews DO
--- NOTE | 2017-08-26 11:40 | PN ---
Progress Note - Progress Note Date of Service: 08/26/17 - Gastroenterology Note: Patient seen and examined. Placed on BiPap due respiratory distress from CHF and increased somnolence since yesterday. Per RN, patient's response has slightly improved. One dose of lactulose was given this am orally off BiPap. Vital Signs: Temp Pulse Resp BP Pulse Ox 97.7 F 85 15 115/62 98 08/26/17 07:00 08/26/17 08:10 08/26/17 08:10 08/26/17 07:00 08/26/17 08:10 Physical examination: GENERAL: Somnolent but responds to name and commands. CV: RRR. PULM: Bibasilar crackles B/L. ABDOMEN: Soft, NT/ND. EXTREMITIES: No edema. Laboratory Results - last 24 hr 08/25/17 08/25/17 08/25/17 13:21 13:50 16:15 WBC 10.8 RBC 4.92 Hgb 14.5 Hct 46 MCV 93 MCH 30 MCHC 32 RDW 15 Plt Count 138 L MPV 10 Neut % (Auto) 83.9 H Lymph % (Auto) 6.6 L [place] % (Auto) 9.4 H Eos % (Auto) 0 Baso % (Auto) 0.1 Absolute Neuts (auto) 9.1 H Absolute Lymphs (auto) 0.7 L Absolute Monos (auto) 1.0 H Absolute Eos (auto) 0 Absolute Basos (auto) 0 Absolute Nucleated RBC 0.1 Nucleated RBC % 0.7 Patient Temperature Not Reportable ABG pH 7.09 L* ABG pH (Temp Correct) Not Reportable ABG pCO2 107 H* ABG pCO2 (Temp Corrct Not Reportable ABG pO2 80 ABG pO2 (Temp Correct Not Reportable ABG HCO3 24.2 ABG O2 Saturation 95.8 ABG Base Excess -0.8 Respiration Rate Not Reportable O2 Delivery Device nasal cannula 5 lpm Ventilator Type Not Reportable Vent Mode Not Reportable FiO2 Not Reportable Inspiratory Time Not Reportable PEEP Not Reportable Pressure Support Not Reportable Pressure Control Not Reportable EPAP Not Reportable IPAP Not Reportable BiPAP Not Reportable Sodium Potassium Chloride Carbon Dioxide Anion Gap BUN Creatinine Est GFR ( Amer) Est GFR (Non-Af Amer) BUN/Creatinine Ratio Glucose POC Glucose (mg/dL) 110 H Calcium Magnesium Total Bilirubin AST ALT Alkaline Phosphatase Ammonia Total Protein Albumin Globulin Albumin/Globulin Ratio 08/25/17 08/25/17 08/26/17 16:22 21:43 06:37 WBC 9.4 RBC 4.71 Hgb 13.8 Hct 44 MCV 93 MCH 29 MCHC 32 RDW 15 Plt Count 119 L MPV 9 Neut % (Auto) 84.6 H Lymph % (Auto) 4.4 L [place] % (Auto) 10.4 H Eos % (Auto) 0.1 Baso % (Auto) 0.5 Absolute Neuts (auto) 7.9 H Absolute Lymphs (auto) 0.4 L Absolute Monos (auto) 1.0 H Absolute Eos (auto) 0 Absolute Basos (auto) 0 Absolute Nucleated RBC 0.1 Nucleated RBC % 0.5 Patient Temperature ABG pH ABG pH (Temp Correct) ABG pCO2 ABG pCO2 (Temp Corrct ABG pO2 ABG pO2 (Temp Correct ABG HCO3 ABG O2 Saturation ABG Base Excess Respiration Rate O2 Delivery Device Ventilator Type Vent Mode FiO2 Inspiratory Time PEEP Pressure Support Pressure Control EPAP IPAP BiPAP Sodium Potassium Chloride Carbon Dioxide Anion Gap BUN Creatinine Est GFR ( Amer) Est GFR (Non-Af Amer) BUN/Creatinine Ratio Glucose POC Glucose (mg/dL) 100 103 H Calcium Magnesium Total Bilirubin AST ALT Alkaline Phosphatase Ammonia Total Protein Albumin Globulin Albumin/Globulin Ratio 08/26/17 08/26/17 06:37 06:37 WBC RBC Hgb Hct MCV MCH MCHC RDW Plt Count MPV Neut % (Auto) Lymph % (Auto) [place] % (Auto) Eos % (Auto) Baso % (Auto) Absolute Neuts (auto) Absolute Lymphs (auto) Absolute Monos (auto) Absolute Eos (auto) Absolute Basos (auto) Absolute Nucleated RBC Nucleated RBC % Patient Temperature ABG pH ABG pH (Temp Correct) ABG pCO2 ABG pCO2 (Temp Corrct ABG pO2 ABG pO2 (Temp Correct ABG HCO3 ABG O2 Saturation ABG Base Excess Respiration Rate O2 Delivery Device Ventilator Type Vent Mode FiO2 Inspiratory Time PEEP Pressure Support Pressure Control EPAP IPAP BiPAP Sodium 140 Potassium 5.1 H Chloride 103 Carbon Dioxide 34 H Anion Gap 3 BUN 52 H Creatinine 0.77 Est GFR ( Amer) 92.8 Est GFR (Non-Af Amer) 72.1 BUN/Creatinine Ratio 67.5 H Glucose 94 POC Glucose (mg/dL) Calcium 8.1 L Magnesium 2.0 Total Bilirubin 1.10 H AST 646 H ALT 1079 H Alkaline Phosphatase 84 Ammonia 98 H Total Protein 5.6 L Albumin 3.4 Globulin 2.2 Albumin/Globulin Ratio 1.5 82 yo female who presented with respiratory distress and weakness found to have CHF and pulmonary HTN. Liver tests on admission including INR were significantly elevated on admission but have now been downtrending. Elevation in liver tests is likely due to congestive hepatopathy. Currently in ICU on BiPap and lactulose is being administered for hepatic encephalopathy. Hepatitis panel was negative. 1. Elevated liver tests - improving. ~Likely from congestive hepatopathy from CHF. ~CT revealing hepatomegaly. ~Improving with treatment of CHF. ~Lactulose for possible hepatic encephalopathy. Recommend administration of laculose via NGT or enemas if difficult to give orally due to BiPap. 2. Coagulopathy - improving. ~Continue to monitor INR. 3. Thrombocytopenia - stable. ~Likely due to congestive hepatopathy. ~Continue to monitor. 4. Pancreatic insufficiency ~Pancreatic enzymes on hold for now due to lack of po intake. 5. Hx of large pancreatic pseudocyst with resection 6. CHF with respiratory failure ~On BiPap. ~Office Asst managing. 7. Cor pulmonale with bullous emphysema Please call with any questions or concerns. Ct Tony D.O.
[2017-08-26] MEDS ORDERED: Vancomycin Trough Check NOTE FOLLOW UP ONE (13:30)
[2017-08-26] MEDS: Pantoprazole IV* 40 MG IV SCH (16:06)
[2017-08-26] MEDS ORDERED: Insulin GLARGINE(*) 1 UNITS UNIT SUBCUT SCH (18:00)
[2017-08-27] MEDS: Albuterol/Ipratropium NEB.SOL* Albuterol 2.5 MG/Ipratropium 0.5 MG 3 ML INH SCH ×4 (01:08→19:43)
[2017-08-27 05:38] LABS: INR 1.14 (0.77-1.02)
[2017-08-27 05:49] LABS: EGFR Non-African American 77.9 (>60)
[2017-08-27 06:07] LABS: ABS Basophils 0 10^3/ul (0-0.2); ABS Eosinophils 0 10^3/ul (0-0.6); ABS Lymphocytes 0.5 10^3/ul (1.0-4.8); ABS Neutrophils 6.5 10^3/ul (1.5-7.7); ABS Nucleated RBC 0 10^3/ul; Eosinophil % 0 % (0-6); Hematocrit 45 % (35-47); Lymphocyte % 6.8 % (25-47); Mean Corpuscular HGB Conc 31 g/dl (31-36); Mean Corpuscular Hemoglobin 29 pg (27-31); Mean Corpuscular Volume 94 fL (80-97); Mean Platelet Volume 10 um3 (7.4-10.4); Nucleated Red Blood Cells % 0.6; Platelet Count 117 10^3/ul (150-450); Red Blood Count 4.81 10^6/ul (4.0-5.4); Red Cell Distribution Width 15 % (10.5-15)
[2017-08-27] MEDS: Heparin VIAL(*) 5000 UNITS/ML VIAL (FIVE THOUSAND) SUBCUT SCH ×3 (06:22→23:21)
[2017-08-27] MEDS ORDERED: D5LR 1000 ML BAG* 1,000 ML IV SCH (08:00)
--- NOTE | 2017-08-27 08:16 | PN ---
Subjective Date of Service: 08/27/17 Interval History: No change in mentation from yesterday. Opens eyes to voice, on BIPAP, cannot hold her head up Objective Active Medications: Albuterol/Ipratropium (Duoneb (Albuterol 2.5 Mg/Ipratropium 0.5 Mg)) 1 neb INH Q6H [facility] Last Admin: 08/27/17 07:48 Dose: 1 neb Dextrose (D50w Syringe 50 Ml*) 12.5 gm IV PUSH .FOR FS < 60 - SS PRN PRN Reason: FS < 60 Furosemide (Lasix Iv*) 40 mg IV DAILY [facility] Last Admin: 08/26/17 09:35 Dose: 40 mg Heparin Sodium (Porcine) (Heparin Flush Picc/Ml/Cvc(*)) 1 - 3 ml FLUSH 0600, 1800 [facility] PRN Reason: Protocol Last Admin: 08/27/17 06:22 Dose: 3 ml Heparin Sodium (Porcine) (Heparin Vial(*)) 5,000 units SUBCUT Q8HR [facility] Last Admin: 08/27/17 06:22 Dose: 5,000 units Dextrose/Lactated Ringer's (D5lr 1000 Ml Bag*) 1,000 mls @ 50 mls/hr IV PER RATE [facility] Lactulose (Lactulose*) 15 ml PO TID [facility] Last Admin: 08/26/17 22:03 Dose: 15 ml Morphine Sulfate (Morphine Inj (Syringe)*) 2 mg IV Q2H PRN PRN Reason: PAIN - MODERATE Ondansetron HCl (Zofran Inj*) 4 mg IV Q6H PRN PRN Reason: NAUSEA Pantoprazole Sodium (Protonix Iv*) 40 mg IV Q24H [facility] Last Admin: 08/26/17 16:06 Dose: 40 mg Polyvinyl Alcohol (Polyvinyl Alcohol 1.4% Opth*) 1 drop BOTH EYES DAILY [facility] Last Admin: 08/26/17 09:35 Dose: 1 drop Vital Signs - 8 hr 08/27/17 08/27/17 08/27/17 01:00 01:08 02:00 Temperature 98.1 F 97.9 F Pulse Rate 87 79 84 Respiratory 23 17 20 Rate Blood Pressure 124/69 117/66 (mmHg) O2 Sat by Pulse 97 97 98 Oximetry 08/27/17 08/27/17 08/27/17 03:00 03:01 03:34 Temperature 97.9 F 97.9 F 97.7 F Pulse Rate 91 93 83 Respiratory 19 18 Rate Blood Pressure 130/62 129/61 (mmHg) O2 Sat by Pulse 98 98 100 Oximetry 08/27/17 08/27/17 08/27/17 04:00 04:01 05:00 Temperature 97.5 F 97.5 F 97.2 F Pulse Rate 85 85 89 Respiratory 23 32 26 Rate Blood Pressure 145/61 136/81 (mmHg) O2 Sat by Pulse 98 99 99 Oximetry 08/27/17 08/27/17 06:00 07:48 Temperature 97.3 F Pulse Rate 75 88 Respiratory 16 18 Rate Blood Pressure 132/65 (mmHg) O2 Sat by Pulse 100 97 Oximetry Oxygen Devices in Use Now: BiPAP Appearance: 82 yo F, on BIPAP, opens eyes to voice Eyes: No Scleral Icterus, PERRLA Ears/Nose/Mouth/Throat: NL Teeth, Lips, Gums, Mucous Membranes Moist Neck: NL Appearance and Movements; NL JVP, Trachea Midline Respiratory: Symmetrical Chest Expansion and Respiratory Effort, - - clear in upper lobes, decreased at b/l lower lungs Cardiovascular: NL Sounds; No Murmurs; No JVD Abdominal: NL Sounds; No Tenderness; No Distention, No Hepatosplenomegaly, - - mild distention Lymphatic: No Cervical Adenopathy Extremities: No Clubbing, Cyanosis, - - trace pedal pitting eddema b/l Skin: No Rash or Ulcers, No Nodules or Sclerosis Neurological: - - generalized weakness and lethargy , no focal motor deficit Result Diagrams: 08/27/17 05:20 08/27/17 05:20 Additional Lab and Data: Lab Results 08/24/17 08/24/17 08/24/17 Range/Units 11:47 11:47 11:47 WBC 13.3 H (3.5-10.8) 10^3/ul RBC 4.99 (4.0-5.4) 10^6/ul Hgb 14.5 (12.0-16.0) g/dl Hct 46 (35-47) % MCV 93 (80-97) fL MCH 29 (27-31) pg MCHC 31 (31-36) g/dl RDW 15 (10.5-15) % Plt Count 191 (150-450) 10^3/ul MPV 10 (7.4-10.4) um3 Neut % (Auto) 85.2 H (38-83) % Lymph % (Auto) 4.6 L (25-47) % [place] % (Auto) 9.9 H (0-7) % Eos % (Auto) 0 (0-6) % Baso % (Auto) 0.3 (0-2) % Absolute Neuts (auto) 11.3 H (1.5-7.7) 10^3/ul Absolute Lymphs (auto) 0.6 L (1.0-4.8) 10^3/ul Absolute Monos (auto) 1.3 H (0-0.8) 10^3/ul Absolute Eos (auto) 0 (0-0.6) 10^3/ul Absolute Basos (auto) 0 (0-0.2) 10^3/ul Absolute Nucleated RBC 0 10^3/ul Nucleated RBC % 0.1 INR (Anticoag Therapy) (0.77-1.02) Sodium 134 (133-145) mmol/L Potassium 5.6 H (3.5-5.0) mmol/L Chloride 96 L (101-111) mmol/L Carbon Dioxide 26 (22-32) mmol/L Anion Gap 12 H (2-11) mmol/L BUN 61 H (6-24) mg/dL Creatinine 1.37 H (0.51-0.95) mg/dL Est GFR ( Amer) 47.7 (>60) Est GFR (Non-Af Amer) 37.1 (>60) BUN/Creatinine Ratio 44.5 H (8-20) Glucose 371 H (70-100) mg/dL Lactic Acid 2.2 H* (0.5-2.0) mmol/L Calcium 9.0 (8.6-10.3) mg/dL Magnesium 2.0 (1.9-2.7) mg/dL Total Bilirubin 1.90 H (0.2-1.0) mg/dL AST 2437 H (13-39) U/L ALT 1630 H (7-52) U/L Alkaline Phosphatase 98 (34-104) U/L Troponin I 0.04 H* (<0.04) ng/mL C-Reactive Protein 22.96 H (< 5.00) mg/L B-Natriuretic Peptide ( - 100) pg/mL Total Protein 6.5 (6.4-8.9) g/dL Albumin 3.9 (3.2-5.2) g/dL Globulin 2.6 (2-4) g/dL Albumin/Globulin Ratio 1.5 (1-3) Lipase Cancelled TSH 5.39 (0.34-5.60) mcIU/mL Salicylates < 2.50 (<30) mg/dL Acetaminophen < 15 mcg/mL 08/24/17 08/24/17 Range/Units 11:47 11:47 WBC (3.5-10.8) 10^3/ul RBC (4.0-5.4) 10^6/ul Hgb (12.0-16.0) g/dl Hct (35-47) % MCV (80-97) fL MCH (27-31) pg MCHC (31-36) g/dl RDW (10.5-15) % Plt Count (150-450) 10^3/ul MPV (7.4-10.4) um3 Neut % (Auto) (38-83) % Lymph % (Auto) (25-47) % [place] % (Auto) (0-7) % Eos % (Auto) (0-6) % Baso % (Auto) (0-2) % Absolute Neuts (auto) (1.5-7.7) 10^3/ul Absolute Lymphs (auto) (1.0-4.8) 10^3/ul Absolute Monos (auto) (0-0.8) 10^3/ul Absolute Eos (auto) (0-0.6) 10^3/ul Absolute Basos (auto) (0-0.2) 10^3/ul Absolute Nucleated RBC 10^3/ul Nucleated RBC % INR (Anticoag Therapy) 1.64 H (0.77-1.02) Sodium (133-145) mmol/L Potassium (3.5-5.0) mmol/L Chloride (101-111) mmol/L Carbon Dioxide (22-32) mmol/L Anion Gap (2-11) mmol/L BUN (6-24) mg/dL Creatinine (0.51-0.95) mg/dL Est GFR ( Amer) (>60) Est GFR (Non-Af Amer) (>60) BUN/Creatinine Ratio (8-20) Glucose (70-100) mg/dL Lactic Acid (0.5-2.0) mmol/L Calcium (8.6-10.3) mg/dL Magnesium (1.9-2.7) mg/dL Total Bilirubin (0.2-1.0) mg/dL AST (13-39) U/L ALT (7-52) U/L Alkaline Phosphatase (34-104) U/L Troponin I (<0.04) ng/mL C-Reactive Protein (< 5.00) mg/L B-Natriuretic Peptide 1070 H ( - 100) pg/mL Total Protein (6.4-8.9) g/dL Albumin (3.2-5.2) g/dL Globulin (2-4) g/dL Albumin/Globulin Ratio (1-3) Lipase TSH (0.34-5.60) mcIU/mL Salicylates (<30) mg/dL Acetaminophen mcg/mL Microbiology and Other Data: Microbiology 08/24/17 22:18 Legionella Urinary Antigen - Final Urine Negative Legionella Antigen Streptococcus pneumoniae Ag Screen - Final Negative S. pneumo Antigen 08/24/17 19:00 Influenza Types A,B Antigen (MILLY) - Final Nasal Specimen received for Influenza A/B Molecular testing Assess/Plan/Problems-Billing Assessment: 82 yo F with h/o COPD(on 02 at night) , DM2, pancreatic insufficiency and pseudocyst, s/p cholecystectomy for gallstone pancreatitis presents with SOB noted to have markedly elevated LFT's - Patient Problems (1) Acute hypercapnic respiratory failure Comment: developed on 08/25/17, pt was placed on BIPAP due to marked respiratory acidosis. suspect due to a combination of encephalopathy (hepatic) and b/l peural effusions (likely transudatve due to CHF). Now DNR/DNI, cont BIPAP appreciate DR. Andrews's help (2) Hepatic encephalopathy Comment: suspect hepatic encephalopathy, trying PO lactulose, Ammonia level up gain, >100 today and pt takes PO lactulose minimally. Son not in favor of lactulose enemas or NG tube placement. Cont PO trials (3) Cor pulmonale Comment: pt has increased pulm pressures and RV overload on Echo EF 40-45%, suspect cor pulmonale possible due to severe COPD(large bullae noted on CT) CTA neg for PE, large effusions b/l noted. (4) LFT elevation Comment: Marked, consistent with hepatitis, likely due to passsive liver congestion-improving daily Acute hepatitis panel neg CT abd shows fibrotic change in pancreas(known) and anasarca appreciate Dr. Tony and Juliana's consults (5) Dyslipidemia Comment: Welchol stopped-can cause LFT elevation (6) DM2 (diabetes mellitus, type 2) Comment: oral hypoglycemics held . Pt had not been eating x 3 days now. will start D5LR. BG checks BID (7) Acute hypoxemic respiratory failure Comment: due to b/l peural effusions, R heart failure/cor pulmonale cont IV Lasix daily, good UO and BP holding for now.Pt's LFT's are still improving with diuresis. (8) Pancreatic insufficiency Comment: on pancrelipase at home, on hold till able to take PO (9) DVT prophylaxis Comment: HSQ Status and Disposition: inpatient
[2017-08-27] MEDS: Furosemide IV* 10 MG/ML VIAL (40 MG) IV SCH (08:30)
[2017-08-27] MEDS: Lactulose* 15 ML UDC PO SCH ×3 (09:05→23:20)
[2017-08-27] MEDS: Artificial Tears* 15 ML BTL BOTH EYES SCH (09:06)
--- NOTE | 2017-08-27 11:26 | PN ---
Progress Note - Progress Note Date of Service: 08/27/17 Note: CRITICAL CARE MEDICINE Date: 08/27/17 Time: 1100 SUBJECTIVE: patient seen and examined this am. bipap back on. Vital Signs: Reviewed. Neurologic: awakes to voice but not automatically opening eyes. moves. shakes head for answers and mouths some things. lethargic . HEENT: pupils equal. Sclera anicteric. Trachea midline. Cardiovascular: S1 S2, 2/6 aníbal, inc jvp still Respiratory: remained dec at bases; ashley on bipap. no wheeze Abdomen: Soft; no pain Extremities: Warm. Access: picc LABS: Reviewed. IMAGING: Reviewed. MEDICATIONS: Reviewed. ASSESSMENT: 82 F with Acute hepatitis - sec to cor pulmonale DAVID on admission - somewhat improved Acute hypoxic and hypercarbic resp failure Cor pulmonale Bullous emphysema B/l pleural effusions Lactic acidosis on admission - recovered Coagulopathy - sec to hepatic insult Metabolic and Hepatic encephalopathy PLAN: encephalopathy still lingering from acute liver insult and still riding in time for clearance. as long as she is not worse then buy time with bipap. where her lungs and R heart equilibrate post heaptic clearance again will be the big concern; well, that and since the liver insult was from the cor pulmonale, otherwise no easy fix. no room for further afterload reduction. continuing to see if she can ashley less vol with lasix, however becoming more contracted now with combination of hypercarbic baseline failures as well. Low dose water replacement as not taking po and keep in mind she may lose more with lactulose. longevity hear is very questionable and treat comfortably. If she can get through and sustain more alertness towards some stability in next 1-2 days then would consider palliative eval, otherwise if unable to recovery with multifactorial ailments then would consider comfort care alone. DNR/DNI Care per medicine. Supportive and preventative care as ordered. Code Status: DNR/DNI, trial niv Critical Care Time: 26 min FMonica Andrews DO
--- NOTE | 2017-08-27 12:21 | PN ---
Progress Note - Progress Note Date of Service: 08/27/17 - Gastroenterology Note: Patient seen and examined. No new overnight issues. Still on BiPap. Tolerating lactulose this am in between BiPap per RN. Tolerating some meals as well. No abdominal pain. No emesis. +BM after lactulose. Mental status is waxing and waning per RN. Vital Signs: Temp Pulse Resp BP Pulse Ox 98.8 F 74 23 149/81 99 08/27/17 12:01 08/27/17 12:01 08/27/17 12:01 08/27/17 12:00 08/27/17 12:01 Physical Examination: GENERAL: On Bipap. Responds to name and simple questions. NAD. CV: RRR. PULM: CTAB. ABDOMEN: Soft. Non-tender. Non-distended. +BS x 4 quadrants. EXTREMITIES: No edema in lower extremities and warm to touch. Laboratory Results - last 24 hr 08/26/17 08/26/17 08/27/17 12:35 21:08 05:20 WBC 8.0 RBC 4.81 Hgb 14.0 Hct 45 MCV 94 MCH 29 MCHC 31 RDW 15 Plt Count 117 L MPV 10 Neut % (Auto) 80.9 Lymph % (Auto) 6.8 L [place] % (Auto) 12.0 H Eos % (Auto) 0 Baso % (Auto) 0.3 Absolute Neuts (auto) 6.5 Absolute Lymphs (auto) 0.5 L Absolute Monos (auto) 1.0 H Absolute Eos (auto) 0 Absolute Basos (auto) 0 Absolute Nucleated RBC 0 Nucleated RBC % 0.6 INR (Anticoag Therapy) Sodium Potassium Chloride Carbon Dioxide Anion Gap BUN Creatinine Est GFR ( Amer) Est GFR (Non-Af Amer) BUN/Creatinine Ratio Glucose POC Glucose (mg/dL) 110 H 127 H Calcium Magnesium Total Bilirubin AST ALT Alkaline Phosphatase Ammonia Total Protein Albumin Globulin Albumin/Globulin Ratio 08/27/17 08/27/17 08/27/17 05:20 05:20 05:20 WBC RBC Hgb Hct MCV MCH MCHC RDW Plt Count MPV Neut % (Auto) Lymph % (Auto) [place] % (Auto) Eos % (Auto) Baso % (Auto) Absolute Neuts (auto) Absolute Lymphs (auto) Absolute Monos (auto) Absolute Eos (auto) Absolute Basos (auto) Absolute Nucleated RBC Nucleated RBC % INR (Anticoag Therapy) 1.14 H Sodium 145 Potassium 4.7 Chloride 103 Carbon Dioxide 40 H Anion Gap 2 BUN 53 H Creatinine 0.72 Est GFR ( Amer) 100.2 Est GFR (Non-Af Amer) 77.9 BUN/Creatinine Ratio 73.6 H Glucose 147 H POC Glucose (mg/dL) Calcium 8.5 L Magnesium 2.1 Total Bilirubin 1.00 AST 394 H ALT 914 H Alkaline Phosphatase 113 H Ammonia 103 H Total Protein 6.1 L Albumin 3.6 Globulin 2.5 Albumin/Globulin Ratio 1.4 82 yo female who presented with respiratory distress and weakness found to have CHF. Liver tests on admission including INR were significantly elevated on admission but have now been downtrending. Elevation in liver tests is likely due to congestive hepatopathy. Currently in ICU on BiPap and lactulose is being administered for hepatic encephalopathy. Hepatitis panel was negative. 1. Elevated liver tests - improving. ~Likely from congestive hepatopathy from CHF due to cor pulmonale. ~CT revealing hepatomegaly. ~Currently tolerating lactulose administration in between BiPap for hepatic encephalopathy. 2. Coagulopathy - improving. ~Continue to monitor INR. 3. Thrombocytopenia - stable. ~Likely due to congestive hepatopathy. ~Continue to monitor. 4. Pancreatic insufficiency ~Pancreatic enzymes on hold for now due to lack of po intake. 5. Hx of large pancreatic pseudocyst with ?resection 6. CHF with respiratory failure from cor pulmonale ~On BiPap. Please call with any questions or concerns. Ct Tony D.O.
[2017-08-27] MEDS: Pantoprazole IV* 40 MG IV SCH (16:05)
[2017-08-27] MEDS: Metoclopramide TAB* 10 MG PO SCH (16:34)
[2017-08-27] MEDS: Pancrelipase CAP* 5,000 UNITS CAP PO SCH (16:34)
[2017-08-27] MEDS: Insulin LISPRO* 1 UNITS UNIT SUBCUT SCH (16:34)
[2017-08-27] MEDS: Cyanocobalamin TAB* 500 MCG PO SCH (16:34)
[2017-08-27] MEDS: COLESEVELAM 625 MG PO SCH (16:34)
[2017-08-27] MEDS: Morphine INJ* 2 MG/ML 1 ML CARPUJECT IV PRN (20:01)
--- NOTE | 2017-08-28 00:02 | PN ---
Progress Note - Progress Note Date of Service: 08/28/17 Note: Sugars climbing - d/c'ed D5W and changed to NS at 50 cc/hr
[2017-08-28] MEDS ORDERED: NS 0.9% 1000 ML* 1,000 ML IV SCH (00:15)
[2017-08-28] MEDS: Albuterol/Ipratropium NEB.SOL* Albuterol 2.5 MG/Ipratropium 0.5 MG 3 ML INH SCH ×4 (02:43→19:54)
[2017-08-28] MEDS: Heparin VIAL(*) 5000 UNITS/ML VIAL (FIVE THOUSAND) SUBCUT SCH ×3 (06:06→22:02)
[2017-08-28] MEDS: Morphine INJ* 2 MG/ML 1 ML CARPUJECT IV PRN ×5 (06:07→23:57)
[2017-08-28 06:36] LABS: EGFR Non-African American 118.7 (>60)
[2017-08-28] MEDS: Artificial Tears* 15 ML BTL BOTH EYES SCH (07:34)
[2017-08-28] MEDS: Furosemide IV* 10 MG/ML VIAL (40 MG) IV SCH (07:45)
[2017-08-28] MEDS: NS 0.45% 1000 ML BAG* 1,000 ML IV SCH (07:58)
--- NOTE | 2017-08-28 08:17 | PN ---
Subjective Date of Service: 08/28/17 Interval History: Patient seen and examined at bedside. Unable to offer much in the way of verbalization but moans quite a bit; recently received morphine for c/o RUQ pain. Currently on nasal cannula; just switched from BiPap. Does not open eyes or respond to commands. Telemetry: SR 74 Family History: Unchanged from Admission Social History: Unchanged from Admission Past Medical History: Unchanged from Admission Objective Active Medications: Albuterol/Ipratropium (Duoneb (Albuterol 2.5 Mg/Ipratropium 0.5 Mg)) 1 neb INH Q6H [facility] Last Admin: 08/28/17 08:13 Dose: 1 neb Dextrose (D50w Syringe 50 Ml*) 12.5 gm IV PUSH .FOR FS < 60 - SS PRN PRN Reason: FS < 60 Furosemide (Lasix Iv*) 40 mg IV DAILY [facility] Last Admin: 08/28/17 07:45 Dose: 40 mg Heparin Sodium (Porcine) (Heparin Flush Picc/Ml/Cvc(*)) 1 - 3 ml FLUSH 0600, 1800 [facility] PRN Reason: Protocol Last Admin: 08/28/17 06:05 Dose: 1 ml Heparin Sodium (Porcine) (Heparin Vial(*)) 5,000 units SUBCUT Q8HR [facility] [place] Last Admin: 08/28/17 06:06 Dose: 5,000 units Sodium Chloride (Ns 0.45% 1000 Ml Bag*) 1,000 mls @ 50 mls/hr IV PER RATE [facility] Last Admin: 08/28/17 07:58 Dose: 50 mls/hr Lactulose (Lactulose*) 15 ml PO TID [facility] Last Admin: 08/27/17 23:20 Dose: 15 ml Morphine Sulfate (Morphine Inj (Syringe)*) 2 mg IV Q2H PRN PRN Reason: PAIN - MODERATE Last Admin: 08/28/17 08:04 Dose: 2 mg Ondansetron HCl (Zofran Inj*) 4 mg IV Q6H PRN PRN Reason: NAUSEA Pantoprazole Sodium (Protonix Iv*) 40 mg IV Q24H [facility] [place] Last Admin: 08/27/17 16:05 Dose: 40 mg Polyvinyl Alcohol (Polyvinyl Alcohol 1.4% Opth*) 1 drop BOTH EYES DAILY [facility] Last Admin: 08/28/17 07:34 Dose: 1 drop Vital Signs - 8 hr 08/28/17 08/28/17 08/28/17 00:30 01:00 01:01 Temperature 98.2 F 98.1 F 98.1 F Pulse Rate 81 75 77 Respiratory 22 19 20 Rate Blood Pressure 120/52 123/55 (mmHg) O2 Sat by Pulse 99 100 99 Oximetry 08/28/17 08/28/17 08/28/17 01:30 02:00 02:01 Temperature 98.2 F 98.2 F 98.2 F Pulse Rate 76 88 85 Respiratory 14 17 16 Rate Blood Pressure 124/56 120/60 (mmHg) O2 Sat by Pulse 100 100 99 Oximetry 08/28/17 08/28/17 08/28/17 02:30 02:44 03:00 Temperature 98.1 F 97.9 F Pulse Rate 93 84 93 Respiratory 15 19 18 Rate Blood Pressure 134/60 146/66 (mmHg) O2 Sat by Pulse 99 97 97 Oximetry 08/28/17 08/28/17 08/28/17 03:01 03:30 04:00 Temperature 97.9 F 97.7 F 97.5 F Pulse Rate 96 82 74 Respiratory 22 17 20 Rate Blood Pressure 134/62 143/74 (mmHg) O2 Sat by Pulse 97 96 94 Oximetry 08/28/17 08/28/17 08/28/17 04:01 04:30 05:00 Temperature 97.5 F 97.5 F 97.5 F Pulse Rate 82 73 81 Respiratory 15 24 23 Rate Blood Pressure 142/63 (mmHg) O2 Sat by Pulse 96 98 100 Oximetry 08/28/17 08/28/17 08/28/17 05:01 05:30 06:00 Temperature 97.5 F 97.9 F 98.1 F Pulse Rate 74 68 72 Respiratory 24 21 24 Rate Blood Pressure 134/54 141/54 147/74 (mmHg) O2 Sat by Pulse 99 100 100 Oximetry 08/28/17 08/28/17 08/28/17 06:01 06:07 06:28 Temperature 98.1 F Pulse Rate 72 Respiratory 18 22 22 Rate Blood Pressure (mmHg) O2 Sat by Pulse 100 Oximetry 08/28/17 08/28/17 08/28/17 06:30 07:00 07:01 Temperature 98.2 F 98.2 F 98.2 F Pulse Rate 71 72 68 Respiratory 19 22 20 Rate Blood Pressure 144/68 144/67 (mmHg) O2 Sat by Pulse 100 100 100 Oximetry 08/28/17 08/28/17 07:30 08:04 Temperature 98.2 F Pulse Rate 73 Respiratory 24 18 Rate Blood Pressure 153/58 (mmHg) O2 Sat by Pulse 100 Oximetry Oxygen Devices in Use Now: Nasal Cannula - 4Lnc, BiPAP - previously on bipap - recently switched to nc Appearance: Older female, appears uncomfortable, does not verbally respond to questions but does respond to voice Eyes: No Scleral Icterus, PERRLA Ears/Nose/Mouth/Throat: - - oral mucosa somewhat dry Neck: NL Appearance and Movements; NL JVP Respiratory: Symmetrical Chest Expansion and Respiratory Effort, - - clear throughout but diminished lung sounds with lessened airflow in bilateral posterior bases Cardiovascular: NL Sounds; No Murmurs; No JVD, RRR, No Edema Abdominal: - - BS present, mild distention, tenderness along RUQ/RMQ with palpation Extremities: No Clubbing, Cyanosis Skin: No Rash or Ulcers Neurological: - - patient seen moving all 4 extremities, does not follow commands or participate in exam, generalized weakness Lines/Tubes/Other Access: Clean, Dry and Intact PICC Line Result Diagrams: 08/27/17 05:20 08/28/17 06:00 Additional Lab and Data: Lab Results 08/24/17 08/24/17 08/24/17 Range/Units 11:47 11:47 11:47 WBC 13.3 H (3.5-10.8) 10^3/ul RBC 4.99 (4.0-5.4) 10^6/ul Hgb 14.5 (12.0-16.0) g/dl Hct 46 (35-47) % MCV 93 (80-97) fL MCH 29 (27-31) pg MCHC 31 (31-36) g/dl RDW 15 (10.5-15) % Plt Count 191 (150-450) 10^3/ul MPV 10 (7.4-10.4) um3 Neut % (Auto) 85.2 H (38-83) % Lymph % (Auto) 4.6 L (25-47) % Larue % (Auto) 9.9 H (0-7) % Eos % (Auto) 0 (0-6) % Baso % (Auto) 0.3 (0-2) % Absolute Neuts (auto) 11.3 H (1.5-7.7) 10^3/ul Absolute Lymphs (auto) 0.6 L (1.0-4.8) 10^3/ul Absolute Monos (auto) 1.3 H (0-0.8) 10^3/ul Absolute Eos (auto) 0 (0-0.6) 10^3/ul Absolute Basos (auto) 0 (0-0.2) 10^3/ul Absolute Nucleated RBC 0 10^3/ul Nucleated RBC % 0.1 INR (Anticoag Therapy) (0.77-1.02) Sodium 134 (133-145) mmol/L Potassium 5.6 H (3.5-5.0) mmol/L Chloride 96 L (101-111) mmol/L Carbon Dioxide 26 (22-32) mmol/L Anion Gap 12 H (2-11) mmol/L BUN 61 H (6-24) mg/dL Creatinine 1.37 H (0.51-0.95) mg/dL Est GFR ( Amer) 47.7 (>60) Est GFR (Non-Af Amer) 37.1 (>60) BUN/Creatinine Ratio 44.5 H (8-20) Glucose 371 H (70-100) mg/dL Lactic Acid 2.2 H* (0.5-2.0) mmol/L Calcium 9.0 (8.6-10.3) mg/dL Magnesium 2.0 (1.9-2.7) mg/dL Total Bilirubin 1.90 H (0.2-1.0) mg/dL AST 2437 H (13-39) U/L ALT 1630 H (7-52) U/L Alkaline Phosphatase 98 (34-104) U/L Troponin I 0.04 H* (<0.04) ng/mL C-Reactive Protein 22.96 H (< 5.00) mg/L B-Natriuretic Peptide ( - 100) pg/mL Total Protein 6.5 (6.4-8.9) g/dL Albumin 3.9 (3.2-5.2) g/dL Globulin 2.6 (2-4) g/dL Albumin/Globulin Ratio 1.5 (1-3) Lipase Cancelled TSH 5.39 (0.34-5.60) mcIU/mL Salicylates < 2.50 (<30) mg/dL Acetaminophen < 15 mcg/mL 08/24/17 08/24/17 Range/Units 11:47 11:47 WBC (3.5-10.8) 10^3/ul RBC (4.0-5.4) 10^6/ul Hgb (12.0-16.0) g/dl Hct (35-47) % MCV (80-97) fL MCH (27-31) pg MCHC (31-36) g/dl RDW (10.5-15) % Plt Count (150-450) 10^3/ul MPV (7.4-10.4) um3 Neut % (Auto) (38-83) % Lymph % (Auto) (25-47) % Larue % (Auto) (0-7) % Eos % (Auto) (0-6) % Baso % (Auto) (0-2) % Absolute Neuts (auto) (1.5-7.7) 10^3/ul Absolute Lymphs (auto) (1.0-4.8) 10^3/ul Absolute Monos (auto) (0-0.8) 10^3/ul Absolute Eos (auto) (0-0.6) 10^3/ul Absolute Basos (auto) (0-0.2) 10^3/ul Absolute Nucleated RBC 10^3/ul Nucleated RBC % INR (Anticoag Therapy) 1.64 H (0.77-1.02) Sodium (133-145) mmol/L Potassium (3.5-5.0) mmol/L Chloride (101-111) mmol/L Carbon Dioxide (22-32) mmol/L Anion Gap (2-11) mmol/L BUN (6-24) mg/dL Creatinine (0.51-0.95) mg/dL Est GFR ( Amer) (>60) Est GFR (Non-Af Amer) (>60) BUN/Creatinine Ratio (8-20) Glucose (70-100) mg/dL Lactic Acid (0.5-2.0) mmol/L Calcium (8.6-10.3) mg/dL Magnesium (1.9-2.7) mg/dL Total Bilirubin (0.2-1.0) mg/dL AST (13-39) U/L ALT (7-52) U/L Alkaline Phosphatase (34-104) U/L Troponin I (<0.04) ng/mL C-Reactive Protein (< 5.00) mg/L B-Natriuretic Peptide 1070 H ( - 100) pg/mL Total Protein (6.4-8.9) g/dL Albumin (3.2-5.2) g/dL Globulin (2-4) g/dL Albumin/Globulin Ratio (1-3) Lipase TSH (0.34-5.60) mcIU/mL Salicylates (<30) mg/dL Acetaminophen mcg/mL Microbiology and Other Data: Microbiology 08/24/17 22:18 Legionella Urinary Antigen - Final Urine Negative Legionella Antigen Streptococcus pneumoniae Ag Screen - Final Negative S. pneumo Antigen 08/24/17 19:00 Influenza Types A,B Antigen (MILLY) - Final Nasal Specimen received for Influenza A/B Molecular testing Assess/Plan/Problems-Billing Assessment: 82 yo F with h/o COPD(on at night) , DM2, pancreatic insufficiency and pseudocyst, s/p cholecystectomy for gallstone pancreatitis presents with SOB noted to have markedly elevated LFT's - Patient Problems (1) Acute hypercapnic respiratory failure Code(s): J96.02 - ACUTE RESPIRATORY FAILURE WITH HYPERCAPNIA Comment: Developed on 08/25/17, pt was placed on BIPAP due to marked respiratory acidosis. Suspect due to a combination of encephalopathy (hepatic) and b/l pleural effusions (likely transudative due to CHF). Now DNR/DNI, cont BIPAP. Appreciate balloon seller consult and recommendations. (2) Acute hypoxemic respiratory failure Code(s): J96.01 - ACUTE RESPIRATORY FAILURE WITH HYPOXIA Comment: Due to b/l pleural effusions, R heart failure/cor pulmonale. Cont IV Lasix daily - good urine output and BP holding for now. Pt's LFT's are still improving with diuresis. (3) Hepatic encephalopathy Code(s): K72.90 - HEPATIC FAILURE, UNSPECIFIED WITHOUT COMA Comment: Suspect hepatic encephalopathy Attempting PO lactulose with patient, but this is variable secondary to mental status. Ammonia level >100 today, level today pending. Continue to offer lactulose at this point in time. Son not in favor of lactulose enemas or NG tube placement. (4) Hypernatremia Code(s): E87.0 - HYPEROSMOLALITY AND HYPERNATREMIA Comment: Likely secondary to intravascular depletion from furosemide Patient previously on D5LR but switched to NS overnight due to hyperglycemia Switched to 1/2NS this AM for Na+ of 150. Recheck BMP this afternoon. (5) Cor pulmonale Code(s): I27.81 - COR PULMONALE (CHRONIC) Comment: Pt has increased pulm pressures and RV overload on Echo. EF 40-45%, suspect cor pulmonale possibly due to severe COPD (large bullae noted on CT) CTA neg for PE, large effusions b/l noted. (6) LFT elevation Code(s): R79.89 - OTHER SPECIFIED ABNORMAL FINDINGS OF BLOOD CHEMISTRY Comment : Marked, consistent with hepatitis, likely due to passsive liver congestion Improving daily Acute hepatitis panel neg CT abd shows fibrotic change in pancreas (known) and anasarca. Appreciate balloon seller and gastroenterology consults and recommendations. (7) Dyslipidemia Code(s): E78.5 - HYPERLIPIDEMIA, UNSPECIFIED Comment: Welchol stopped-can cause LFT elevation. (8) DM2 (diabetes mellitus, type 2) Comment: Oral hypoglycemics held. Pt had not been eating x 3 days now. D5 changed due to hyperglycemia Continue to monitor BG and watch for hypoglycemia. (9) Pancreatic insufficiency Code(s): K86.89 - OTHER SPECIFIED DISEASES OF PANCREAS Comment: On pancrelipase at home, on hold until able to take PO. (10) DVT prophylaxis Comment: HSQ Status and Disposition: Inpatient admission with extended LOS due to multiple co-morbidities and need for higher level of care. Check KUB for new abdominal pain.
[2017-08-28] MEDS: Lactulose* 15 ML UDC PO SCH ×3 (09:09→22:03)
[2017-08-28] MEDS ORDERED: Lactulose 300 ML for PR* 10 GM/15 ML BTL PR ONE (09:58)
--- NOTE | 2017-08-28 10:12 | PN ---
Progress Note - Progress Note Date of Service: 08/28/17 Note: CRITICAL CARE MEDICINE Date: 08/28/17 Time: 930 SUBJECTIVE: patient seen and examined this am. bipap off this am Vital Signs: Reviewed. Neurologic: awakes to voice but not opening eyes yet with simple responding. lethargic but a bit quicker. HEENT: pupils equal. Sclera anicteric. Trachea midline. Cardiovascular: S1 S2, 2/6 aníbal, jvp up Respiratory: remains dec at bases; no wheeze. poor excursion Abdomen: Soft; uncomfortable RUQ again Extremities: Warm. Access: picc LABS: Reviewed. IMAGING: Reviewed. MEDICATIONS: Reviewed. ASSESSMENT: 82 F with Acute hepatitis - sec to cor pulmonale DAVID on admission - somewhat improved Acute hypoxic and hypercarbic resp failure Cor pulmonale Bullous emphysema B/l pleural effusions Lactic acidosis on admission - recovered Coagulopathy - sec to hepatic insult Metabolic and Hepatic encephalopathy PLAN: encephalopathy still lingering but perhaps a touch better from hepatic but still needs a bit more time. not uncomfortable. will again fail ventilation needing bipap today, but has been tolerating this well. if in another 24h we can be more alert with hepatic clearance perhaps we can see some mild abilioty to thrive and gain on, with ulitmate palliative consultation and oupt hospice considerations, but need to get better first. Continue care as is. DNR/DNI Needs ICU still Supportive and preventative care as ordered. Code Status: DNR/DNI, trial niv Critical Care Time: 25 min FMonica Andrews DO
--- NOTE | 2017-08-28 10:30 | RAD ---
INDICATION: Right upper quadrant pain COMPARISON: Chest x-ray dated August 24, 2017 TECHNIQUE: 2 views the abdomen were obtained. FINDINGS: Again seen is density obscuring the bilateral lung bases, worse on the left than the right most likely representing pleural effusions. The mildly dilated colon measures up to 7.4 cm in diameter at the cecum. There is gas and stool seen throughout most of the colon including the rectum. There is no definite free intraperitoneal air. IMPRESSION: 1. MILD DILATATION OF THE COLON MEASURING 7.4 CM AT THE CECUM WITH GAS AND STOOL EXTENDING FAR THE RECTUM. 2. LIKELY BIBASILAR PLEURAL EFFUSIONS, LARGER ON THE LEFT THAN THE RIGHT.
[2017-08-28 14:11] LABS: EGFR Non-African American 124.4 (>60)
[2017-08-28] MEDS: Pantoprazole IV* 40 MG IV SCH (14:47)
[2017-08-28] MEDS: Lactulose 300 ML for PR* 10 GM/15 ML BTL PR SCH (22:01)
[2017-08-29] MEDS: Albuterol/Ipratropium NEB.SOL* Albuterol 2.5 MG/Ipratropium 0.5 MG 3 ML INH SCH ×4 (01:54→19:17)
[2017-08-29] MEDS: NS 0.45% 1000 ML BAG* 1,000 ML IV SCH ×2 (03:05→23:43)
[2017-08-29] MEDS: Morphine INJ* 2 MG/ML 1 ML CARPUJECT IV PRN ×5 (03:39→22:59)
[2017-08-29] MEDS: Heparin VIAL(*) 5000 UNITS/ML VIAL (FIVE THOUSAND) SUBCUT SCH ×3 (05:41→21:04)
[2017-08-29 06:03] LABS: EGFR Non-African American 158.1 (>60)
[2017-08-29] MEDS: Furosemide IV* 10 MG/ML VIAL (40 MG) IV SCH (07:30)
[2017-08-29] MEDS: Artificial Tears* 15 ML BTL BOTH EYES SCH (07:30)
[2017-08-29] MEDS: Lactulose* 15 ML UDC PO SCH ×3 (08:20→19:54)
--- NOTE | 2017-08-29 08:48 | PN ---
Subjective Date of Service: 08/29/17 Interval History: Patient seen and examined at bedside. Ms. Duenas is very restless but is able to open eyes on command but quickly closes them back. BiPAP currently off and O2 sats 90%. Unable to offer much verbalization. Family History: Unchanged from Admission Social History: Unchanged from Admission Past Medical History: Unchanged from Admission Objective Active Medications: Albuterol/Ipratropium (Duoneb (Albuterol 2.5 Mg/Ipratropium 0.5 Mg)) 1 neb INH Q6H [facility] Last Admin: 08/29/17 08:01 Dose: 1 neb Dextrose (D50w Syringe 50 Ml*) 12.5 gm IV PUSH .FOR FS < 60 - SS PRN PRN Reason: FS < 60 Furosemide (Lasix Iv*) 40 mg IV DAILY [facility] Last Admin: 08/29/17 07:30 Dose: 40 mg Heparin Sodium (Porcine) (Heparin Flush Picc/Ml/Cvc(*)) 1 - 3 ml FLUSH 0600, 1800 [facility] PRN Reason: Protocol Last Admin: 08/29/17 05:40 Dose: 2 ml Heparin Sodium (Porcine) (Heparin Vial(*)) 5,000 units SUBCUT Q8HR [facility] Last Admin: 08/29/17 05:41 Dose: 5,000 units Sodium Chloride (Ns 0.45% 1000 Ml Bag*) 1,000 mls @ 50 mls/hr IV PER RATE [facility] Last Admin: 08/29/17 03:05 Dose: 50 mls/hr Acetazolamide Sodium 500 mg/ (Sodium Chloride) 50 mls @ 100 mls/hr IVPB ONCE ONE Stop: 08/29/17 10:28 Lactulose (Lactulose*) 15 ml PO TID [facility] Last Admin: 08/29/17 08:20 Dose: Not Given Lactulose (Lactulose 300 Ml For Pr*) 200 gm MO QID [facility] Last Admin: 08/28/17 22:01 Dose: 200 gm Morphine Sulfate (Morphine Inj (Syringe)*) 2 mg IV Q2H PRN PRN Reason: PAIN - MODERATE Last Admin: 08/29/17 08:03 Dose: 2 mg Ondansetron HCl (Zofran Inj*) 4 mg IV Q6H PRN PRN Reason: NAUSEA Pantoprazole Sodium (Protonix Iv*) 40 mg IV Q24H [facility] Last Admin: 08/28/17 14:47 Dose: 40 mg Polyvinyl Alcohol (Polyvinyl Alcohol 1.4% Opth*) 1 drop BOTH EYES DAILY [facility] Last Admin: 08/29/17 07:30 Dose: 1 drop Vital Signs - 8 hr 08/29/17 08/29/17 08/29/17 01:00 01:01 01:30 Temperature 98.6 F 98.6 F 98.6 F Pulse Rate 77 68 74 Respiratory 24 18 21 Rate Blood Pressure 138/68 130/56 (mmHg) O2 Sat by Pulse 98 97 97 Oximetry 08/29/17 08/29/17 08/29/17 01:55 02:00 02:01 Temperature 98.6 F 98.6 F Pulse Rate 72 73 73 Respiratory 17 20 24 Rate Blood Pressure 146/63 (mmHg) O2 Sat by Pulse 97 97 97 Oximetry 08/29/17 08/29/17 08/29/17 02:30 03:00 03:01 Temperature 98.6 F 98.4 F 98.4 F Pulse Rate 73 74 72 Respiratory 20 18 21 Rate Blood Pressure 140/65 145/61 (mmHg) O2 Sat by Pulse 97 97 97 Oximetry 08/29/17 08/29/17 08/29/17 03:31 03:39 04:00 Temperature 98.4 F 98.6 F Pulse Rate 74 73 Respiratory 23 24 23 Rate Blood Pressure 124/57 126/61 (mmHg) O2 Sat by Pulse 97 96 Oximetry 08/29/17 08/29/17 08/29/17 04:01 04:30 05:00 Temperature 98.6 F 98.6 F 98.6 F Pulse Rate 71 76 72 Respiratory 19 19 18 Rate Blood Pressure 129/45 133/55 (mmHg) O2 Sat by Pulse 97 96 96 Oximetry 08/29/17 08/29/17 08/29/17 05:01 05:30 06:00 Temperature 98.6 F 98.6 F Pulse Rate 82 73 76 Respiratory 25 21 20 Rate Blood Pressure 123/55 148/70 (mmHg) O2 Sat by Pulse 97 96 90 Oximetry 08/29/17 08/29/17 08/29/17 06:01 06:30 07:00 Temperature 98.1 F 98.1 F Pulse Rate 79 72 75 Respiratory 25 28 Rate Blood Pressure 137/59 (mmHg) O2 Sat by Pulse 90 99 96 Oximetry 08/29/17 08/29/17 08/29/17 07:01 07:18 07:30 Temperature 98.2 F 98.2 F Pulse Rate 72 72 Respiratory 18 28 18 Rate Blood Pressure 134/68 143/61 (mmHg) O2 Sat by Pulse 99 98 Oximetry 08/29/17 08/29/17 08/29/17 08:00 08:01 08:03 Temperature 98.2 F 98.4 F Pulse Rate 96 80 Respiratory 35 23 25 Rate Blood Pressure 152/82 (mmHg) O2 Sat by Pulse 92 92 Oximetry Oxygen Devices in Use Now: Nasal Cannula Appearance: Elderly female, restless, appears uncomfortable, minimally responsive to repeated stimuli Eyes: No Scleral Icterus, PERRLA Ears/Nose/Mouth/Throat: Clear Oropharnyx Neck: NL Appearance and Movements; NL JVP Respiratory: Symmetrical Chest Expansion and Respiratory Effort, - - diminished breath sounds, fair aeration, more decreased in bases Cardiovascular: RRR, - - soft murmur heard Abdominal: - - BS present, RUQ pain with palpation Extremities: No Edema, No Clubbing, Cyanosis Skin: No Rash or Ulcers Neurological: - - difficult to assess, responds to noxious stimuli Lines/Tubes/Other Access: Clean, Dry and Intact PICC Line Result Diagrams: 08/27/17 05:20 08/29/17 05:35 Additional Lab and Data: Lab Results 08/24/17 08/24/17 08/24/17 Range/Units 11:47 11:47 11:47 WBC 13.3 H (3.5-10.8) 10^3/ul RBC 4.99 (4.0-5.4) 10^6/ul Hgb 14.5 (12.0-16.0) g/dl Hct 46 (35-47) % MCV 93 (80-97) fL MCH 29 (27-31) pg MCHC 31 (31-36) g/dl RDW 15 (10.5-15) % Plt Count 191 (150-450) 10^3/ul MPV 10 (7.4-10.4) um3 Neut % (Auto) 85.2 H (38-83) % Lymph % (Auto) 4.6 L (25-47) % [place] % (Auto) 9.9 H (0-7) % Eos % (Auto) 0 (0-6) % Baso % (Auto) 0.3 (0-2) % Absolute Neuts (auto) 11.3 H (1.5-7.7) 10^3/ul Absolute Lymphs (auto) 0.6 L (1.0-4.8) 10^3/ul Absolute Monos (auto) 1.3 H (0-0.8) 10^3/ul Absolute Eos (auto) 0 (0-0.6) 10^3/ul Absolute Basos (auto) 0 (0-0.2) 10^3/ul Absolute Nucleated RBC 0 10^3/ul Nucleated RBC % 0.1 INR (Anticoag Therapy) (0.77-1.02) Sodium 134 (133-145) mmol/L Potassium 5.6 H (3.5-5.0) mmol/L Chloride 96 L (101-111) mmol/L Carbon Dioxide 26 (22-32) mmol/L Anion Gap 12 H (2-11) mmol/L BUN 61 H (6-24) mg/dL Creatinine 1.37 H (0.51-0.95) mg/dL Est GFR ( Amer) 47.7 (>60) Est GFR (Non-Af Amer) 37.1 (>60) BUN/Creatinine Ratio 44.5 H (8-20) Glucose 371 H (70-100) mg/dL Lactic Acid 2.2 H* (0.5-2.0) mmol/L Calcium 9.0 (8.6-10.3) mg/dL Magnesium 2.0 (1.9-2.7) mg/dL Total Bilirubin 1.90 H (0.2-1.0) mg/dL AST 2437 H (13-39) U/L ALT 1630 H (7-52) U/L Alkaline Phosphatase 98 (34-104) U/L Troponin I 0.04 H* (<0.04) ng/mL C-Reactive Protein 22.96 H (< 5.00) mg/L B-Natriuretic Peptide ( - 100) pg/mL Total Protein 6.5 (6.4-8.9) g/dL Albumin 3.9 (3.2-5.2) g/dL Globulin 2.6 (2-4) g/dL Albumin/Globulin Ratio 1.5 (1-3) Lipase Cancelled TSH 5.39 (0.34-5.60) mcIU/mL Salicylates < 2.50 (<30) mg/dL Acetaminophen < 15 mcg/mL 08/24/17 08/24/17 Range/Units 11:47 11:47 WBC (3.5-10.8) 10^3/ul RBC (4.0-5.4) 10^6/ul Hgb (12.0-16.0) g/dl Hct (35-47) % MCV (80-97) fL MCH (27-31) pg MCHC (31-36) g/dl RDW (10.5-15) % Plt Count (150-450) 10^3/ul MPV (7.4-10.4) um3 Neut % (Auto) (38-83) % Lymph % (Auto) (25-47) % [place] % (Auto) (0-7) % Eos % (Auto) (0-6) % Baso % (Auto) (0-2) % Absolute Neuts (auto) (1.5-7.7) 10^3/ul Absolute Lymphs (auto) (1.0-4.8) 10^3/ul Absolute Monos (auto) (0-0.8) 10^3/ul Absolute Eos (auto) (0-0.6) 10^3/ul Absolute Basos (auto) (0-0.2) 10^3/ul Absolute Nucleated RBC 10^3/ul Nucleated RBC % INR (Anticoag Therapy) 1.64 H (0.77-1.02) Sodium (133-145) mmol/L Potassium (3.5-5.0) mmol/L Chloride (101-111) mmol/L Carbon Dioxide (22-32) mmol/L Anion Gap (2-11) mmol/L BUN (6-24) mg/dL Creatinine (0.51-0.95) mg/dL Est GFR ( Amer) (>60) Est GFR (Non-Af Amer) (>60) BUN/Creatinine Ratio (8-20) Glucose (70-100) mg/dL Lactic Acid (0.5-2.0) mmol/L Calcium (8.6-10.3) mg/dL Magnesium (1.9-2.7) mg/dL Total Bilirubin (0.2-1.0) mg/dL AST (13-39) U/L ALT (7-52) U/L Alkaline Phosphatase (34-104) U/L Troponin I (<0.04) ng/mL C-Reactive Protein (< 5.00) mg/L B-Natriuretic Peptide 1070 H ( - 100) pg/mL Total Protein (6.4-8.9) g/dL Albumin (3.2-5.2) g/dL Globulin (2-4) g/dL Albumin/Globulin Ratio (1-3) Lipase TSH (0.34-5.60) mcIU/mL Salicylates (<30) mg/dL Acetaminophen mcg/mL Microbiology and Other Data: Microbiology 08/24/17 22:18 Legionella Urinary Antigen - Final Urine Negative Legionella Antigen Streptococcus pneumoniae Ag Screen - Final Negative S. pneumo Antigen 08/24/17 19:00 Influenza Types A,B Antigen (MILLY) - Final Nasal Specimen received for Influenza A/B Molecular testing Assess/Plan/Problems-Billing Assessment: 82 yo F with h/o COPD(on 02 at night) , DM2, pancreatic insufficiency and pseudocyst, s/p cholecystectomy for gallstone pancreatitis presents with SOB noted to have markedly elevated LFT's - Patient Problems (1) Acute hypercapnic respiratory failure Code(s): J96.02 - ACUTE RESPIRATORY FAILURE WITH HYPERCAPNIA Comment: Developed on 08/25/17, pt was placed on BIPAP due to marked respiratory acidosis. Suspect due to a combination of encephalopathy (hepatic) and b/l pleural effusions (likely transudative due to CHF). Now DNR/DNI, cont BIPAP. Appreciate cargo operations agent consult and recommendations. (2) Acute hypoxemic respiratory failure Code(s): J96.01 - ACUTE RESPIRATORY FAILURE WITH HYPOXIA Comment: Due to b/l pleural effusions, R heart failure/cor pulmonale. Cont IV Lasix daily - good urine output and BP holding for now. Pt's LFT's are still improving with diuresis. (3) Hepatic encephalopathy Code(s): K72.90 - HEPATIC FAILURE, UNSPECIFIED WITHOUT COMA Comment: Suspect hepatic encephalopathy Attempting PO lactulose with patient, but this is variable secondary to mental status. Ammonia level >100 today, level today pending. Continue to offer lactulose at this point in time. Son not in favor of lactulose enemas or NG tube placement. (4) Hypernatremia Code(s): E87.0 - HYPEROSMOLALITY AND HYPERNATREMIA Comment: Likely secondary to intravascular depletion from furosemide Patient previously on D5LR but switched to NS due to hyperglycemia Switched to 1/2NS for elevated Na+ (5) Cor pulmonale Code(s): I27.81 - COR PULMONALE (CHRONIC) Comment: Pt has increased pulm pressures and RV overload on Echo. EF 40-45%, suspect cor pulmonale possibly due to severe COPD (large bullae noted on CT) CTA neg for PE, large effusions b/l noted. (6) LFT elevation Code(s): R79.89 - OTHER SPECIFIED ABNORMAL FINDINGS OF BLOOD CHEMISTRY Comment : Marked, consistent with hepatitis, likely due to passsive liver congestion Improving daily Acute hepatitis panel neg CT abd shows fibrotic change in pancreas (known) and anasarca. Appreciate cargo operations agent and gastroenterology consults and recommendations. (7) Dyslipidemia Code(s): E78.5 - HYPERLIPIDEMIA, UNSPECIFIED Comment: Welchol stopped-can cause LFT elevation. (8) DM2 (diabetes mellitus, type 2) Comment: Oral hypoglycemics held. Pt had not been eating x 3 days now. D5 changed due to hyperglycemia Continue to monitor BG and watch for hypoglycemia. (9) Pancreatic insufficiency Code(s): K86.89 - OTHER SPECIFIED DISEASES OF PANCREAS Comment: On pancrelipase at home, on hold until able to take PO. (10) DVT prophylaxis Comment: HSQ Status and Disposition: Inpatient admission with extended LOS due to multiple co-morbidities and need for higher level of care. Mentation with no significant improvement. Plan to discuss treatment plan with cargo operations agent and update POC with family.
[2017-08-29] MEDS ORDERED: acetaZOLAMIDE VIAL* 500 MG in NS 0.9% 50 ML* 50 ML IVPB ONE (09:59)
--- NOTE | 2017-08-29 11:18 | PN ---
Progress Note - Progress Note Date of Service: 08/29/17 Note: CRITICAL CARE MEDICINE Date: 08/29/17 Time: 935 SUBJECTIVE: patient seen and examined this am. Vital Signs: Reviewed. Neurologic: awakes to voice and attempt to answer incoherently but almost appropriately. not keeping eyes open but did open to voice. HEENT: pupils equal. Sclera anicteric. Trachea midline. stage one on bridge of nose. Cardiovascular: S1 S2, 2/6 aníbal Respiratory: dec at bases; no wheeze. better excursion Abdomen: Soft, mild tender ruq Extremities: Warm. Access: picc LABS: Reviewed. IMAGING: Reviewed. MEDICATIONS: Reviewed. ASSESSMENT: 82 F with Acute hepatitis - sec to cor pulmonale DAVID on admission - somewhat improved Acute hypoxic and hypercarbic resp failure Cor pulmonale Bullous emphysema B/l pleural effusions Lactic acidosis on admission - recovered Coagulopathy - sec to hepatic insult Metabolic and Hepatic encephalopathy PLAN: encephalopathy lingering but again perhaps a touch better from hepatic but still needs a more time as long as tolerating and pain not becoming the limiting step. Jody bipap and needs to remain off today and avoid rescue. can use O2 but needs to maintain her ventilation triggers. Can have nocturnal bipap tonight and would anticipate again remaining off without rescue tomorrow if she is going to show any ability to thrive. looking for hepatic clearance and equilibration of cor pulmonale towards palliative consultation and oupt hospice considerations, but if she continues to not progress or pain becomes the limiting step, then alleviating pain would be priority. will look to d/w family today. DNR/DNI ICU still Supportive and preventative care as ordered. Code Status: DNR/DNI, trial niv Critical Care Time: 25 min Serenity Andrews DO
[2017-08-29] MEDS: Lactulose 300 ML for PR* 10 GM/15 ML BTL PR SCH ×3 (12:05→18:13)
--- NOTE | 2017-08-29 14:22 | PN ---
Progress Note - Progress Note Date of Service: 08/29/17 Note: CRITICAL CARE MEDICINE Date: 08/29/17 Time: 1400 son updated at bedside. expresses good understanding of dx, plan and care. Does not want things forced on pt, but see how she can tolerate with current plans and care and understands may need to transition to comfort alone. Critical Care Time: 10 min Serenity Andrews, DO
[2017-08-29] MEDS: Pantoprazole IV* 40 MG IV SCH (15:22)
[2017-08-30] MEDS: Morphine INJ* 2 MG/ML 1 ML CARPUJECT IV PRN ×4 (02:28→18:40)
[2017-08-30] MEDS: Albuterol/Ipratropium NEB.SOL* Albuterol 2.5 MG/Ipratropium 0.5 MG 3 ML INH SCH ×4 (03:08→19:48)
[2017-08-30 05:17] LABS: EGFR Non-African American 134.1 (>60)
[2017-08-30] MEDS: Heparin VIAL(*) 5000 UNITS/ML VIAL (FIVE THOUSAND) SUBCUT SCH ×3 (05:35→21:56)
--- NOTE | 2017-08-30 08:36 | PN ---
Subjective Date of Service: 08/30/17 Interval History: Patient seen and examined at bedside. Ms. Duenas is more alert this morning and responds to her name and states "I'm so-so" when asked how she is feeling. She does report that her abdomen is still bothering her. She is able to ask for water and responds to my command to open her eyes. She is able to sit up and drink water with my assistance. Family History: Unchanged from Admission Social History: Unchanged from Admission Past Medical History: Unchanged from Admission Objective Active Medications: Albuterol/Ipratropium (Duoneb (Albuterol 2.5 Mg/Ipratropium 0.5 Mg)) 1 neb INH Q6H [facility] Last Admin: 08/30/17 07:23 Dose: 1 neb Dextrose (D50w Syringe 50 Ml*) 12.5 gm IV PUSH .FOR FS < 60 - SS PRN PRN Reason: FS < 60 Furosemide (Lasix Iv*) 40 mg IV DAILY [facility] Last Admin: 08/29/17 07:30 Dose: 40 mg Heparin Sodium (Porcine) (Heparin Flush Picc/Ml/Cvc(*)) 1 - 3 ml FLUSH 0600, 1800 [facility] PRN Reason: Protocol Last Admin: 08/30/17 05:35 Dose: 1 ml Heparin Sodium (Porcine) (Heparin Vial(*)) 5,000 units SUBCUT Q8HR [facility] Last Admin: 08/30/17 05:35 Dose: 5,000 units Sodium Chloride (Ns 0.45% 1000 Ml Bag*) 1,000 mls @ 50 mls/hr IV PER RATE [facility] Last Admin: 08/29/17 23:43 Dose: 50 mls/hr Lactulose (Lactulose*) 15 ml PO TID [facility] Last Admin: 08/29/17 19:54 Dose: Not Given Morphine Sulfate (Morphine Inj (Syringe)*) 2 mg IV Q2H PRN PRN Reason: PAIN - MODERATE Last Admin: 08/30/17 02:28 Dose: 2 mg Ondansetron HCl (Zofran Inj*) 4 mg IV Q6H PRN PRN Reason: NAUSEA Pantoprazole Sodium (Protonix Iv*) 40 mg IV Q24H [facility] Last Admin: 08/29/17 15:22 Dose: 40 mg Polyvinyl Alcohol (Polyvinyl Alcohol 1.4% Opth*) 1 drop BOTH EYES DAILY [facility] Last Admin: 08/29/17 07:30 Dose: 1 drop Vital Signs - 8 hr 08/30/17 08/30/17 08/30/17 01:00 01:01 02:00 Temperature 98.8 F 98.8 F 98.8 F Pulse Rate 70 73 77 Respiratory 18 19 22 Rate Blood Pressure 127/54 144/61 (mmHg) O2 Sat by Pulse 97 97 97 Oximetry 08/30/17 08/30/17 08/30/17 02:01 02:28 03:00 Temperature 98.8 F 98.8 F Pulse Rate 74 87 Respiratory 20 25 22 Rate Blood Pressure 156/136 (mmHg) O2 Sat by Pulse 96 96 Oximetry 08/30/17 08/30/17 08/30/17 03:01 03:10 03:21 Temperature 98.8 F Pulse Rate 76 76 Respiratory 23 16 16 Rate Blood Pressure (mmHg) O2 Sat by Pulse 96 95 Oximetry 08/30/17 08/30/17 08/30/17 03:36 04:00 04:01 Temperature 99.0 F 99.0 F 99.0 F Pulse Rate 76 87 84 Respiratory 12 21 22 Rate Blood Pressure 156/136 131/68 (mmHg) O2 Sat by Pulse 95 95 95 Oximetry 08/30/17 08/30/17 08/30/17 05:00 05:01 05:41 Temperature 99.0 F 99.0 F Pulse Rate 77 83 Respiratory 24 21 18 Rate Blood Pressure 117/70 (mmHg) O2 Sat by Pulse 96 96 Oximetry 08/30/17 08/30/17 08/30/17 06:00 06:01 07:00 Temperature 99.1 F 99.1 F 99.1 F Pulse Rate 77 78 78 Respiratory 21 20 16 Rate Blood Pressure 117/51 114/57 (mmHg) O2 Sat by Pulse 96 94 95 Oximetry 08/30/17 08/30/17 08/30/17 07:01 07:25 08:00 Temperature 99.1 F 99.0 F Pulse Rate 78 78 85 Respiratory 15 16 21 Rate Blood Pressure 128/66 (mmHg) O2 Sat by Pulse 95 95 96 Oximetry 08/30/17 08:01 Temperature 99.1 F Pulse Rate 89 Respiratory 20 Rate Blood Pressure (mmHg) O2 Sat by Pulse 94 Oximetry Oxygen Devices in Use Now: Nasal Cannula Appearance: Older female, sitting up in bed, still somewhat lethargic but more responsive and answering some questions more appropriately Eyes: No Scleral Icterus, PERRLA, - - sclera somewhat injected Ears/Nose/Mouth/Throat: Clear Oropharnyx, - - dry oral mucosa Neck: NL Appearance and Movements; NL JVP Respiratory: Symmetrical Chest Expansion and Respiratory Effort, - - diminished but fair aeration noted in all lung buenrostro, improved respiratory effort Cardiovascular: RRR, - - soft murmur Abdominal: - - BS +, mild tenderness with palpation to RUQ/RMQ Extremities: No Edema, No Clubbing, Cyanosis Neurological: - - More alert, does respond to verbal stimuli and tactile stimuli appropriately but still drosy Lines/Tubes/Other Access: Clean, Dry and Intact PICC Line Result Diagrams: 08/27/17 05:20 08/30/17 04:30 Additional Lab and Data: Lab Results 08/24/17 08/24/17 08/24/17 Range/Units 11:47 11:47 11:47 WBC 13.3 H (3.5-10.8) 10^3/ul RBC 4.99 (4.0-5.4) 10^6/ul Hgb 14.5 (12.0-16.0) g/dl Hct 46 (35-47) % MCV 93 (80-97) fL MCH 29 (27-31) pg MCHC 31 (31-36) g/dl RDW 15 (10.5-15) % Plt Count 191 (150-450) 10^3/ul MPV 10 (7.4-10.4) um3 Neut % (Auto) 85.2 H (38-83) % Lymph % (Auto) 4.6 L (25-47) % [place] % (Auto) 9.9 H (0-7) % Eos % (Auto) 0 (0-6) % Baso % (Auto) 0.3 (0-2) % Absolute Neuts (auto) 11.3 H (1.5-7.7) 10^3/ul Absolute Lymphs (auto) 0.6 L (1.0-4.8) 10^3/ul Absolute Monos (auto) 1.3 H (0-0.8) 10^3/ul Absolute Eos (auto) 0 (0-0.6) 10^3/ul Absolute Basos (auto) 0 (0-0.2) 10^3/ul Absolute Nucleated RBC 0 10^3/ul Nucleated RBC % 0.1 INR (Anticoag Therapy) (0.77-1.02) Sodium 134 (133-145) mmol/L Potassium 5.6 H (3.5-5.0) mmol/L Chloride 96 L (101-111) mmol/L Carbon Dioxide 26 (22-32) mmol/L Anion Gap 12 H (2-11) mmol/L BUN 61 H (6-24) mg/dL Creatinine 1.37 H (0.51-0.95) mg/dL Est GFR ( Amer) 47.7 (>60) Est GFR (Non-Af Amer) 37.1 (>60) BUN/Creatinine Ratio 44.5 H (8-20) Glucose 371 H (70-100) mg/dL Lactic Acid 2.2 H* (0.5-2.0) mmol/L Calcium 9.0 (8.6-10.3) mg/dL Magnesium 2.0 (1.9-2.7) mg/dL Total Bilirubin 1.90 H (0.2-1.0) mg/dL AST 2437 H (13-39) U/L ALT 1630 H (7-52) U/L Alkaline Phosphatase 98 (34-104) U/L Troponin I 0.04 H* (<0.04) ng/mL C-Reactive Protein 22.96 H (< 5.00) mg/L B-Natriuretic Peptide ( - 100) pg/mL Total Protein 6.5 (6.4-8.9) g/dL Albumin 3.9 (3.2-5.2) g/dL Globulin 2.6 (2-4) g/dL Albumin/Globulin Ratio 1.5 (1-3) Lipase Cancelled TSH 5.39 (0.34-5.60) mcIU/mL Salicylates < 2.50 (<30) mg/dL Acetaminophen < 15 mcg/mL 08/24/17 08/24/17 Range/Units 11:47 11:47 WBC (3.5-10.8) 10^3/ul RBC (4.0-5.4) 10^6/ul Hgb (12.0-16.0) g/dl Hct (35-47) % MCV (80-97) fL MCH (27-31) pg MCHC (31-36) g/dl RDW (10.5-15) % Plt Count (150-450) 10^3/ul MPV (7.4-10.4) um3 Neut % (Auto) (38-83) % Lymph % (Auto) (25-47) % [place] % (Auto) (0-7) % Eos % (Auto) (0-6) % Baso % (Auto) (0-2) % Absolute Neuts (auto) (1.5-7.7) 10^3/ul Absolute Lymphs (auto) (1.0-4.8) 10^3/ul Absolute Monos (auto) (0-0.8) 10^3/ul Absolute Eos (auto) (0-0.6) 10^3/ul Absolute Basos (auto) (0-0.2) 10^3/ul Absolute Nucleated RBC 10^3/ul Nucleated RBC % INR (Anticoag Therapy) 1.64 H (0.77-1.02) Sodium (133-145) mmol/L Potassium (3.5-5.0) mmol/L Chloride (101-111) mmol/L Carbon Dioxide (22-32) mmol/L Anion Gap (2-11) mmol/L BUN (6-24) mg/dL Creatinine (0.51-0.95) mg/dL Est GFR ( Amer) (>60) Est GFR (Non-Af Amer) (>60) BUN/Creatinine Ratio (8-20) Glucose (70-100) mg/dL Lactic Acid (0.5-2.0) mmol/L Calcium (8.6-10.3) mg/dL Magnesium (1.9-2.7) mg/dL Total Bilirubin (0.2-1.0) mg/dL AST (13-39) U/L ALT (7-52) U/L Alkaline Phosphatase (34-104) U/L Troponin I (<0.04) ng/mL C-Reactive Protein (< 5.00) mg/L B-Natriuretic Peptide 1070 H ( - 100) pg/mL Total Protein (6.4-8.9) g/dL Albumin (3.2-5.2) g/dL Globulin (2-4) g/dL Albumin/Globulin Ratio (1-3) Lipase TSH (0.34-5.60) mcIU/mL Salicylates (<30) mg/dL Acetaminophen mcg/mL Microbiology and Other Data: Microbiology 08/24/17 22:18 Legionella Urinary Antigen - Final Urine Negative Legionella Antigen Streptococcus pneumoniae Ag Screen - Final Negative S. pneumo Antigen 08/24/17 19:00 Influenza Types A,B Antigen (MILLY) - Final Nasal Specimen received for Influenza A/B Molecular testing Assess/Plan/Problems-Billing Assessment: 82 yo F with h/o COPD(on 02 at night) , DM2, pancreatic insufficiency and pseudocyst, s/p cholecystectomy for gallstone pancreatitis presents with SOB noted to have markedly elevated LFT's - Patient Problems (1) Acute hypercapnic respiratory failure Code(s): J96.02 - ACUTE RESPIRATORY FAILURE WITH HYPERCAPNIA Comment: Developed on 08/25/17, pt was placed on BIPAP due to marked respiratory acidosis. Suspect due to a combination of encephalopathy (hepatic) and b/l pleural effusions (likely transudative due to CHF). Now DNR/DNI, cont BIPAP. Appreciate upholstery bundler consult and recommendations. (2) Acute hypoxemic respiratory failure Code(s): J96.01 - ACUTE RESPIRATORY FAILURE WITH HYPOXIA Comment: Due to b/l pleural effusions, R heart failure/cor pulmonale. Cont IV Lasix daily - good urine output and BP holding for now. Pt's LFT's are still improving with diuresis. (3) Hepatic encephalopathy Code(s): K72.90 - HEPATIC FAILURE, UNSPECIFIED WITHOUT COMA Comment: Suspect hepatic encephalopathy Attempting PO lactulose with patient, but this is variable secondary to mental status. Ammonia level 83 today Son not in favor of lactulose enemas or NG tube placement. (4) Hypernatremia Code(s): E87.0 - HYPEROSMOLALITY AND HYPERNATREMIA Comment: Likely secondary to intravascular depletion from furosemide and lactulose Patient previously on D5LR but switched to NS due to hyperglycemia Switched to 1/2NS for elevated Na+ (5) Cor pulmonale Code(s): I27.81 - COR PULMONALE (CHRONIC) Comment: Pt has increased pulm pressures and RV overload on Echo. EF 40-45%, suspect cor pulmonale possibly due to severe COPD (large bullae noted on CT) CTA neg for PE, large effusions b/l noted. (6) LFT elevation Code(s): R79.89 - OTHER SPECIFIED ABNORMAL FINDINGS OF BLOOD CHEMISTRY Comment : Marked, consistent with hepatitis, likely due to passsive liver congestion Improving daily Acute hepatitis panel neg CT abd shows fibrotic change in pancreas (known) and anasarca. Appreciate upholstery bundler and gastroenterology consults and recommendations. (7) Dyslipidemia Code(s): E78.5 - HYPERLIPIDEMIA, UNSPECIFIED Comment: Welchol stopped-can cause LFT elevation. (8) DM2 (diabetes mellitus, type 2) Comment: Oral hypoglycemics held. Pt had not been eating x 3 days now. D5 changed due to hyperglycemia Continue to monitor BG and watch for hypoglycemia. (9) Pancreatic insufficiency Code(s): K86.89 - OTHER SPECIFIED DISEASES OF PANCREAS Comment: On pancrelipase at home, on hold until able to take PO. (10) DVT prophylaxis Comment: HSQ Status and Disposition: Inpatient admission with extended LOS due to multiple co-morbidities and need for higher level of care. Mentation improved today. Continue with BiPAP weaning trials. Appreciate upholstery bundler recommendations.
[2017-08-30] MEDS: Lactulose* 15 ML UDC PO SCH ×3 (08:59→21:57)
[2017-08-30] MEDS: Furosemide IV* 10 MG/ML VIAL (40 MG) IV SCH (09:02)
[2017-08-30] MEDS: Artificial Tears* 15 ML BTL BOTH EYES SCH (10:25)
[2017-08-30] MEDS: Tobramycin/Dexameth OPTH.SUSP* 2.5 M L BTL BOTH EYES SCH ×4 (10:31→21:56)
[2017-08-30] MEDS ORDERED: Magnesium Sulfate 2 GM IV* 2 GM/50 ML BAG IVPB ONE (10:46)
--- NOTE | 2017-08-30 10:51 | PN ---
Progress Note - Progress Note Date of Service: 08/30/17 Note: CRITICAL CARE MEDICINE Date: 08/30/17 Time: 900 SUBJECTIVE: patient seen and examined this am. Vital Signs: Reviewed. Neurologic: awakes. opens eyes. answers simple questions. asking for water. HEENT: pupils equal. Sclera anicteric. Trachea midline. Cardiovascular: S1 S2, 2/6 aníbal Respiratory: dec at bases; no wheeze. stable Abdomen: Soft, mild tender ruq same Extremities: Warm. Access: picc LABS: Reviewed. IMAGING: Reviewed. MEDICATIONS: Reviewed. ASSESSMENT: 82 F with Acute hepatitis - sec to cor pulmonale DAVID on admission - somewhat improved Acute hypoxic and hypercarbic resp failure Cor pulmonale Bullous emphysema B/l pleural effusions Lactic acidosis on admission - recovered Coagulopathy - sec to hepatic insult Metabolic and Hepatic encephalopathy PLAN: encephalopathy slowly better but not cler yet. continued tx as is. remain without bipap rescue again today. bipap nocturnal again tonight. 1/2ns and diuretics ok again today and then can hold off on these dynamics depending tomorrows condition if better, great, would sort out her medical supports and allow her to remain off bipap and invasive supports and see if palliative and supportive care can help her transition out of hospital ultimately. If only worse come tomorrow (as ammonia climbing again despite medial tx) then would allow more natural process with cessation of aggressive support and allow comfort measures. Its up to her. See what she can do. DNR/DNI ICU today; potential floor tomorrow pending plans Supportive and preventative care as ordered. Code Status: DNR/DNI, trial niv Critical Care Time: 25 min Serenity Andrews DO
[2017-08-30] MEDS ORDERED: D5W 1/2 NS 40 Meq KCL 1000 ML* 1,000 ML IV SCH (11:00)
[2017-08-30] MEDS ORDERED: Insulin GLARGINE(*) 1 UNITS UNIT SUBCUT ONE (12:00)
[2017-08-30] MEDS: Insulin REGULAR(*) 1 UNITS UNIT SUBCUT SCH ×2 (12:29→18:40)
[2017-08-30] MEDS: Pantoprazole IV* 40 MG IV SCH (18:23)
[2017-08-31] MEDS: Insulin REGULAR(*) 1 UNITS UNIT SUBCUT SCH ×5 (00:11→20:40)
[2017-08-31] MEDS: Tobramycin/Dexameth OPTH.SUSP* 2.5 M L BTL BOTH EYES SCH ×6 (00:11→20:49)
[2017-08-31] MEDS: Albuterol/Ipratropium NEB.SOL* Albuterol 2.5 MG/Ipratropium 0.5 MG 3 ML INH SCH ×4 (00:57→19:48)
[2017-08-31] MEDS: Heparin VIAL(*) 5000 UNITS/ML VIAL (FIVE THOUSAND) SUBCUT SCH ×3 (05:15→20:49)
[2017-08-31] MEDS: Artificial Tears* 15 ML BTL BOTH EYES SCH (08:03)
[2017-08-31] MEDS: Lactulose* 15 ML UDC PO SCH ×3 (08:08→20:49)
[2017-08-31] MEDS ORDERED: acetaZOLAMIDE VIAL* 500 MG in NS 0.9% 50 ML* 50 ML IVPB SCH (09:00)
[2017-08-31] MEDS ORDERED: acetaZOLAMIDE VIAL* 500 MG VIAL IV PUSH ONE (09:00)
--- NOTE | 2017-08-31 09:28 | PN ---
Subjective Date of Service: 08/31/17 Interval History: Ms. Duenas states that she is feeling quite well this morning. She denies chest pain, SOB, nausea, or abdominal pain. She has a strong appetite. Family History: Unchanged from Admission Social History: Unchanged from Admission Past Medical History: Unchanged from Admission Objective Active Medications: Albuterol/Ipratropium (Duoneb (Albuterol 2.5 Mg/Ipratropium 0.5 Mg)) 1 neb INH Q6H [facility] Dextrose (D50w Syringe 50 Ml*) 12.5 gm IV PUSH .FOR FS < 60 - SS PRN Heparin Sodium (Porcine) (Heparin Flush Picc/Ml/Cvc(*)) 1 - 3 ml FLUSH 0600, 1800 SUJATA Heparin Sodium (Porcine) (Heparin Vial(*)) 5,000 units SUBCUT Q8HR [facility] Insulin Human Regular (Insulin Regular(*)) 0 units SUBCUT FS Q6 ICU [facility] Lactulose (Lactulose*) 15 ml PO TID SC Morphine Sulfate (Morphine Inj (Syringe)*) 2 mg IV Q2H PRN Ondansetron HCl (Zofran Inj*) 4 mg IV Q6H PRN Pantoprazole Sodium (Protonix Iv*) 40 mg IV Q24H [facility] Polyvinyl Alcohol (Polyvinyl Alcohol 1.4% Opth*) 1 drop BOTH EYES DAILY [facility] Tobramycin/Dexamethasone (Tobradex 0.3-0.1%*) 1 drop BOTH EYES Q4H [facility] Vital Signs - 8 hr Vital Signs: Temp Pulse Resp BP Pulse Ox 99.0 F 73 22 129/70 100 08/31/17 08:01 08/31/17 08:01 08/31/17 08:01 08/31/17 08:00 08/31/17 08:01 Oxygen Devices in Use Now: Nasal Cannula Appearance: Elderly female sitting up in bed in NAD Eyes: No Scleral Icterus Ears/Nose/Mouth/Throat: Mucous Membranes Moist Neck: Trachea Midline Respiratory: Symmetrical Chest Expansion and Respiratory Effort, Clear to Auscultation, - - Diminished throughout Cardiovascular: NL Sounds; No Murmurs; No JVD, No Edema Abdominal: NL Sounds; No Tenderness; No Distention Extremities: No Edema Skin: No Rash or Ulcers Neurological: Alert and Oriented x 3, NL Muscle Strength and Tone Nutrition: Taking PO's Result Diagrams: 08/27/17 05:20 08/30/17 04:30 Additional Lab and Data: . Microbiology and Other Data: . Assess/Plan/Problems-Billing Assessment: Ms. Duenas is an 82 yo F with h/o COPD(on 02 at night) , DM2, pancreatic insufficiency and pseudocyst, s/p cholecystectomy for gallstone pancreatitis presents with SOB noted to have markedly elevated LFT's now thought to be secondary to cor pulmonale with acute on chronic hypoxic and hypercarbic respiratory failure requiring NIPPV in ICU. - Patient Problems (1) Respiratory failure Comment: - Responded to NIPPV and now on 4L NC. - Mixed hypercarbic and hypoxemic due to history of COPD, cor pulmonale with CHF and pleural effusions, and hepatic failure and encephalopathy also due to cor pulmonale and poor forward flow to liver. Unclear what lead to acute decompensation, question acute viral illness prior to admission? - Appreciate Architecture Instructor consultation. - Continue morphine prn for air hunger, discomfort. (2) Cor pulmonale Comment: - Continues to improve, now off Bipap. - No further diuresis indicated as she is now hypernatremic due to hypovolemia. She has intact thirst mechanism and strong appetite, will encourage po fluids. - Pt had increased pulm pressures and RV overload on Echo with EF 40-45%, due to cor pulmonale in setting of severe COPD. CTA found large pleural effusions. (3) COPD (chronic obstructive pulmonary disease) Comment: - Continue bipap at night for acute on chronic hypercapnic resp failure as per above. - Continue duonebs. (4) Acute liver failure Comment: - Hepatic encephalopathy resolved, patient A/O x 3. Patient tolerating TID lactulose, ammonia level pending. - LFTs continue to fall. - Due to passive liver congestion from CHF as per above. Acute hepatitis panel neg. CT abd shows fibrotic change in pancreas (known) and anasarca. - Appreciate thermit welding machine operator and gastroenterology consult. (5) Hypernatremia Comment: - Due to intravascular depletion from furosemide and lactulose - Plan to encourage po fluids now that she is alert, no IVF fluids given cor pulmonale and CHF. (6) DM2 (diabetes mellitus, type 2) Comment: - BG 100-190 - Start lantus 10 units daily, adjust as needed. (7) Pancreatic insufficiency Comment: - Resume pancrealipase. (8) Dyslipidemia Comment: - Welchol stopped-can cause LFT elevation. (9) DVT prophylaxis Comment: - HSQ (10) DNR (do not resuscitate) Comment: Status and Disposition: Inpatient admission. Patient from home and lived independently prior to this admission, however prognosis is now guarded.
--- NOTE | 2017-08-31 11:06 | PN ---
Progress Note - Progress Note Date of Service: 08/31/17 Note: CRITICAL CARE MEDICINE Date: 08/31/17 Time: 900 SUBJECTIVE: patient seen and examined this am. Vital Signs: Reviewed. Neurologic: better. communicating her needs. HEENT: pupils equal. Sclera anicteric. Trachea midline. Cardiovascular: S1 S2, 2/6 aníbal Respiratory: mild dec at bases; no wheeze. stable Abdomen: Soft, nt Extremities: Warm. Access: picc LABS: Reviewed. IMAGING: Reviewed. MEDICATIONS: Reviewed. ASSESSMENT: 82 F with Acute hepatitis - sec to cor pulmonale DAVID on admission - stable Acute hypoxic and hypercarbic resp failure - improved Cor pulmonale Bullous emphysema B/l pleural effusions - will remain with chronic component Lactic acidosis on admission - recovered Coagulopathy - sec to hepatic insult - stable Metabolic and Hepatic encephalopathy - improved PLAN: better overall. hepatic encephalopathy stable perfusing. vol status stable. encephalopathy better and probable stay on lactulose indefinitely for 2-3 loose bms per day can keep nocturnal bipap maintence for now until longer plans sorted. No further bipap rescue nor return to icu. allow her to advance diet and equilibrate her electrolytes with po intake. Palliative eval for hospice consideration but hopefully can still have some quality if she can get stronger. pt eval to floor. Supportive and preventative care as ordered. Code Status: DNR/DNI Critical Care Time: 25 min Serenity Andrews DO
[2017-08-31 11:45] LABS: Hematocrit 43 % (35-47); Hemoglobin 13.3 g/dl (12.0-16.0); Mean Corpuscular HGB Conc 31 g/dl (31-36); Mean Corpuscular Hemoglobin 29 pg (27-31); Mean Corpuscular Volume 93 fL (80-97); Mean Platelet Volume 9.9 um3 (7.4-10.4); Platelet Count 77 10^3/ul (150-450); Red Blood Count 4.65 10^6/ul (4.0-5.4); Red Cell Distribution Width 15 % (10.5-15); White Blood Count 6.9 10^3/ul (3.5-10.8)
[2017-08-31 11:59] LABS: EGFR Non-African American 141.3 (>60)
[2017-08-31 12:14] LABS: ABS Basophils 0 10^3/ul (0-0.2); ABS Eosinophils 0.1 10^3/ul (0-0.6); ABS Lymphocytes 0.9 10^3/ul (1.0-4.8); ABS Monocytes 0.8 10^3/ul (0-0.8); ABS Neutrophils 5.1 10^3/ul (1.5-7.7); ABS Nucleated RBC 0 10^3/ul; Eosinophil % 1.6 % (0-6); Lymphocyte % 13.6 % (25-47); Nucleated Red Blood Cells % 0.1
[2017-08-31] MEDS: Pancrelipase CAP* 5,000 UNITS CAP PO SCH ×2 (13:18→18:00)
[2017-08-31] MEDS: Insulin GLARGINE(*) 1 UNITS UNIT SUBCUT SCH (13:18)
[2017-08-31] MEDS: Morphine INJ* 2 MG/ML 1 ML CARPUJECT IV PRN (15:02)
[2017-09-01] MEDS: Tobramycin/Dexameth OPTH.SUSP* 2.5 M L BTL BOTH EYES SCH ×6 (00:09→21:32)
[2017-09-01] MEDS: Albuterol/Ipratropium NEB.SOL* Albuterol 2.5 MG/Ipratropium 0.5 MG 3 ML INH SCH ×4 (02:06→19:59)
[2017-09-01] MEDS: Heparin VIAL(*) 5000 UNITS/ML VIAL (FIVE THOUSAND) SUBCUT SCH ×2 (04:57→14:10)
[2017-09-01] MEDS: Insulin REGULAR(*) 1 UNITS UNIT SUBCUT SCH ×4 (07:46→21:33)
[2017-09-01] MEDS: Pancrelipase CAP* 5,000 UNITS CAP PO SCH ×3 (08:29→16:44)
[2017-09-01] MEDS: Artificial Tears* 15 ML BTL BOTH EYES SCH (08:30)
[2017-09-01] MEDS: Lactulose* 15 ML UDC PO SCH ×3 (08:31→21:32)
[2017-09-01] MEDS: Insulin GLARGINE(*) 1 UNITS UNIT SUBCUT SCH (11:57)
--- NOTE | 2017-09-01 14:19 | PN ---
Subjective Date of Service: 09/01/17 Interval History: Ms. Duenas feels that she is doing well today. She denies chest pain or SOB. She is tolerating oral intake and denies nausea, abdominal pain or diarrhea. She states that her nose hurts and therefore she refused to wear her NIPPV mask last night. However, she is amenable to trying to wear it for a few hours tonight. Family History: Unchanged from Admission Social History: Unchanged from Admission Past Medical History: Unchanged from Admission Objective Active Medications: Albuterol/Ipratropium (Duoneb (Albuterol 2.5 Mg/Ipratropium 0.5 Mg)) 1 neb INH Q6H [facility] Dextrose (D50w Syringe 50 Ml*) 12.5 gm IV PUSH .FOR FS < 60 - SS PRN Heparin Sodium (Porcine) (Heparin Flush Picc/Ml/Cvc(*)) 1 - 3 ml FLUSH 0600, 1800 [facility] Heparin Sodium (Porcine) (Heparin Vial(*)) 5,000 units SUBCUT Q8HR [facility] Insulin Glargine (Lantus(*)) 10 units SUBCUT Q24H [facility] Insulin Human Regular (Insulin Regular(*)) 0 units SUBCUT ACHS [facility] Lactulose (Lactulose*) 15 ml PO TID [facility] Morphine Sulfate (Morphine Inj (Syringe)*) 2 mg IV Q2H PRN Ondansetron HCl (Zofran Inj*) 4 mg IV Q6H PRN Pancrelipase (Zenpep Delayed Cap*) 5,000 units PO TID WITH MEALS [facility] Polyvinyl Alcohol (Polyvinyl Alcohol 1.4% Opth*) 1 drop BOTH EYES DAILY [facility] Tobramycin/Dexamethasone (Tobradex 0.3-0.1%*) 1 drop BOTH EYES Q4H [facility] Vital Signs: Temp Pulse Resp BP Pulse Ox 97.4 F 92 18 163/80 92 09/01/17 11:23 09/01/17 14:03 09/01/17 11:23 09/01/17 11:23 09/01/17 13:00 Oxygen Devices in Use Now: Nasal Cannula Appearance: Thin, elderly female sitting up in bed in NAD Eyes: No Scleral Icterus Ears/Nose/Mouth/Throat: Mucous Membranes Moist Neck: Trachea Midline Respiratory: Symmetrical Chest Expansion and Respiratory Effort, Clear to Auscultation, - - Diminished throughout Cardiovascular: NL Sounds; No Murmurs; No JVD, No Edema Abdominal: NL Sounds; No Tenderness; No Distention Lymphatic: No Cervical Adenopathy Extremities: No Edema Skin: No Rash or Ulcers Neurological: Alert and Oriented x 3, NL Muscle Strength and Tone Nutrition: Taking PO's Result Diagrams: 08/31/17 11:17 08/31/17 11:17 Additional Lab and Data: . Microbiology and Other Data: . Assess/Plan/Problems-Billing Assessment: Ms. Duenas is an 82 yo F with h/o COPD(on 02 at night) , DM2, pancreatic insufficiency and pseudocyst, s/p cholecystectomy for gallstone pancreatitis presents with SOB noted to have markedly elevated LFT's now thought to be secondary to cor pulmonale with acute on chronic hypoxic and hypercarbic respiratory failure requiring NIPPV in ICU. - Patient Problems (1) Respiratory failure Comment: - Responded to NIPPV and now on 2L NC. - Mixed hypercarbic and hypoxemic due to history of COPD, acute on chronic cor pulmonale with acute on chronic systolic/diastolic CHF and pleural effusions, and hepatic failure and encephalopathy also due to cor pulmonale and poor forward flow to liver. Unclear what lead to acute decompensation, question acute viral illness prior to admission? - Appreciate Financial Sales Representative consultation. - Continue morphine prn for air hunger, discomfort. (2) Cor pulmonale Comment: - Continues to improve, now off Bipap. - Appears euvolemic at this point. - Pt had increased pulm pressures and RV overload on Echo with EF 40-45%, due to acute on chronic cor pulmonale in setting of severe COPD. CTA found large pleural effusions. (3) COPD (chronic obstructive pulmonary disease) Comment: - Continue bipap at night for acute on chronic hypercapnic resp failure as per above. Contacted RT to discuss plan for wearing mask at least for a couple of hours tonight with additional cushioning for the bridge of her nose. - Continue duonebs. (4) Acute liver failure Comment: - Hepatic encephalopathy resolved, patient A/O x 3. Patient tolerating TID lactulose. - LFTs continue to fall. - Due to passive liver congestion from CHF as per above. Acute hepatitis panel neg. CT abd shows fibrotic change in pancreas (known) and anasarca. - Appreciate brick catcher and gastroenterology consult. (5) Hypernatremia Comment: - Resolved. (6) DM2 (diabetes mellitus, type 2) Comment: - BG 100-190 - Start lantus 10 units daily, adjust as needed. (7) Pancreatic insufficiency Comment: - Resume pancrealipase. (8) Dyslipidemia Comment: - Welchol stopped-can cause LFT elevation. (9) DVT prophylaxis Comment: - HSQ (10) DNR (do not resuscitate) Comment: Status and Disposition: Inpatient admission. Patient from home and lived independently prior to this admission, however is two assist with transfers now. Continue PT, will likely need subacute rehab.
[2017-09-02] MEDS: Albuterol/Ipratropium NEB.SOL* Albuterol 2.5 MG/Ipratropium 0.5 MG 3 ML INH SCH ×4 (01:29→20:32)
[2017-09-02] MEDS: Heparin VIAL(*) 5000 UNITS/ML VIAL (FIVE THOUSAND) SUBCUT SCH ×4 (01:41→21:43)
[2017-09-02] MEDS: Tobramycin/Dexameth OPTH.SUSP* 2.5 M L BTL BOTH EYES SCH ×6 (03:53→21:41)
[2017-09-02] MEDS ORDERED: Saline NASAL SPRAY 0.65%* BTL BOTH NARES PRN (04:17)
[2017-09-02 06:23] LABS: EGFR Non-African American 158.1 (>60)
[2017-09-02] MEDS: Insulin REGULAR(*) 1 UNITS UNIT SUBCUT SCH ×4 (08:36→21:43)
[2017-09-02] MEDS: Pancrelipase CAP* 5,000 UNITS CAP PO SCH ×3 (08:58→17:01)
[2017-09-02] MEDS: Lactulose* 15 ML UDC PO SCH ×3 (08:58→21:46)
[2017-09-02] MEDS: Artificial Tears* 15 ML BTL BOTH EYES SCH (08:58)
[2017-09-02] MEDS: Insulin GLARGINE(*) 1 UNITS UNIT SUBCUT SCH (12:36)
--- NOTE | 2017-09-02 14:20 | PN ---
Subjective Date of Service: 09/02/17 Interval History: Patient is in good spirits, fully oriented and communicative. Able to tolerate BiPAP last night for 2 hours. Improving SOB. On 3L O2 NC. No CP, SOB, N/V, abdominal pain, diarrhea, F/C, or other pain. Discussed rehab and/or palliative care with patient. Patient in agreement to talk with palliative care doctor. Understands poor prognosis. Would prefer to go home to facility. Family History: Unchanged from Admission Social History: Unchanged from Admission Past Medical History: Unchanged from Admission Objective Active Medications: Albuterol/Ipratropium (Duoneb (Albuterol 2.5 Mg/Ipratropium 0.5 Mg)) 1 neb INH Q6H [facility] Last Admin: 09/02/17 07:52 Dose: 1 neb Dextrose (D50w Syringe 50 Ml*) 12.5 gm IV PUSH .FOR FS < 60 - SS PRN PRN Reason: FS < 60 Heparin Sodium (Porcine) (Heparin Flush Picc/Ml/Cvc(*)) 1 - 3 ml FLUSH 0600, 1800 [facility] PRN Reason: Protocol Last Admin: 09/02/17 05:34 Dose: 2 ml Heparin Sodium (Porcine) (Heparin Vial(*)) 5,000 units SUBCUT Q8HR [facility] Last Admin: 09/02/17 12:37 Dose: 5,000 units Insulin Glargine (Lantus(*)) 10 units SUBCUT Q24H [facility] Last Admin: 09/02/17 12:36 Dose: 10 unit Insulin Human Regular (Insulin Regular(*)) 0 units SUBCUT ACHS [facility] PRN Reason: Protocol Last Admin: 09/02/17 12:37 Dose: 8 units Lactulose (Lactulose*) 15 ml PO TID [facility] Last Admin: 09/02/17 12:36 Dose: 15 ml Morphine Sulfate (Morphine Inj (Syringe)*) 2 mg IV Q2H PRN PRN Reason: PAIN - MODERATE Last Admin: 08/31/17 15:02 Dose: 1 mg Ondansetron HCl (Zofran Inj*) 4 mg IV Q6H PRN PRN Reason: NAUSEA Pancrelipase (Zenpep Delayed Cap*) 5,000 units PO TID WITH MEALS [facility] Last Admin: 09/02/17 12:41 Dose: 5,000 units Polyvinyl Alcohol (Polyvinyl Alcohol 1.4% Opth*) 1 drop BOTH EYES DAILY [facility] Last Admin: 09/02/17 08:58 Dose: 1 drop Sodium Chloride (Sodium Chloride 0.65% Nasal [place]*) 2 spray BOTH NARES Q2H PRN PRN Reason: DRY NARES Tobramycin/Dexamethasone (Tobradex 0.3-0.1%*) 1 drop BOTH EYES Q4H [facility] Last Admin: 09/02/17 12:43 Dose: 1 drp Vital Signs - 8 hr 09/02/17 09/02/17 09/02/17 07:43 07:52 08:00 Temperature 97.3 F Pulse Rate 72 78 Respiratory 20 16 Rate Blood Pressure 151/69 (mmHg) O2 Sat by Pulse 98 100 Oximetry Oxygen Devices in Use Now: Nasal Cannula Appearance: Patient is an 82yo female who appears stated age and is sitting in the bed in NAD. Eyes: No Scleral Icterus, PERRLA Ears/Nose/Mouth/Throat: NL Teeth, Lips, Gums, Clear Oropharnyx, Mucous Membranes Moist Neck: NL Appearance and Movements; NL JVP, Trachea Midline Respiratory: Symmetrical Chest Expansion and Respiratory Effort, - - Severely Diminished breath sounds throughout. Cardiovascular: NL Sounds; No Murmurs; No JVD, RRR, No Edema Abdominal: NL Sounds; No Tenderness; No Distention, No Hepatosplenomegaly Lymphatic: No Cervical Adenopathy Extremities: No Edema, No Clubbing, Cyanosis Skin: No Rash or Ulcers, No Nodules or Sclerosis Neurological: Alert and Oriented x 3, NL Sensation, NL Muscle Strength and Tone , - - CN II-XII intact. Result Diagrams: 08/31/17 11:17 09/02/17 05:35 Additional Lab and Data: . Microbiology and Other Data: . Assess/Plan/Problems-Billing Assessment: Ms. Duenas is an 82 yo F with h/o COPD(on 02 at night) , DM2, pancreatic insufficiency and pseudocyst, s/p cholecystectomy for gallstone pancreatitis presents with SOB noted to have markedly elevated LFT's now thought to be secondary to cor pulmonale with acute on chronic hypoxic and hypercarbic respiratory failure who is now down to 3L oxygen by nasal cannula on the medical floor. - Patient Problems (1) Respiratory failure Current Visit: Yes Status: Acute Code(s): J96.90 - RESPIRATORY FAILURE, UNSP , UNSP W HYPOXIA OR HYPERCAPNIA SNOMED Code(s): 548337888 Comment: Responded to NIPPV and now on 3L NC. Mixed hypercarbic and hypoxemic due to history of COPD, acute on chronic cor pulmonale with acute on chronic systolic/diastolic CHF and pleural effusions, and hepatic failure and encephalopathy also due to cor pulmonale and poor forward flow to liver. Unclear what lead to acute decompensation, question acute viral illness prior to admission? Appreciate Composite Assembler consultation. Continue morphine prn for air hunger, discomfort. Patient in agreement to keep wearing BiPAP at night as much as tolerated for hypercapnea and to talk to palliative care team due to poor prognosis. (2) COPD (chronic obstructive pulmonary disease) Current Visit: Yes Status: Acute Code(s): J44.9 - CHRONIC OBSTRUCTIVE PULMONARY DISEASE, UNSPECIFIED SNOMED Code(s): 20055205 Comment: Continue bipap at night for acute on chronic hypercapnic resp failure as per above. Continue duonebs. (3) Acute liver failure Current Visit: Yes Status: Acute Comment: Appreciate Gastroenterology consult. Hepatic encephalopathy resolved, patient A/O x 3. LFTs continue to fall, almost within normal range. Due to passive liver congestion from CHF as per above. (4) Cor pulmonale Current Visit: Yes Status: Acute Code(s): I27.81 - COR PULMONALE (CHRONIC) SNOMED Code(s): 23639508 Comment: Continues to improve, now off Bipap. Appears euvolemic at this point. Pt had increased pulm pressures and RV overload on Echo with EF 40-45%, due to acute on chronic cor pulmonale in setting of severe COPD. CTA found large pleural effusions. (5) DM2 (diabetes mellitus, type 2) Current Visit: Yes Status: Acute Comment: BG 100-190 Start lantus 10 units daily, adjust as needed. Continue SSI. AM BG well controlled. (6) Hypernatremia Current Visit: Yes Status: Acute Code(s): E87.0 - HYPEROSMOLALITY AND HYPERNATREMIA SNOMED Code(s): 55782948 Comment: Resolved. Likely due to dehydration. (7) Pancreatic insufficiency Current Visit: Yes Status: Acute Code(s): K86.89 - OTHER SPECIFIED DISEASES OF PANCREAS SNOMED Code(s): 84452123 Comment: Resume pancrealipase. (8) Dyslipidemia Current Visit: Yes Status: Chronic Code(s): E78.5 - HYPERLIPIDEMIA, UNSPECIFIED SNOMED Code(s): 030757166 Comment: Welchol stopped-can cause LFT elevation. Would recommend not resuming. (9) DNR (do not resuscitate) Current Visit: Yes Status: Acute Comment: (10) DVT prophylaxis Current Visit: Yes Status: Acute Code(s): ZVT0570 - SNOMED Code(s): 793570526 Comment: HSQ Status and Disposition: Inpatient admission. Patient from home and lived independently prior to this admission, however is two assist with transfers now. Continue PT, will likely need subacute rehab. Palliative care consult entered.
[2017-09-02 20:34] LABS: EGFR Non-African American 127.5 (>60)
[2017-09-03] MEDS: Albuterol/Ipratropium NEB.SOL* Albuterol 2.5 MG/Ipratropium 0.5 MG 3 ML INH SCH (02:03)
[2017-09-03] MEDS: Tobramycin/Dexameth OPTH.SUSP* 2.5 M L BTL BOTH EYES SCH ×7 (04:03→21:27)
[2017-09-03] MEDS: Heparin VIAL(*) 5000 UNITS/ML VIAL (FIVE THOUSAND) SUBCUT SCH ×3 (05:48→21:27)
[2017-09-03 06:18] LABS: EGFR Non-African American 185.3 (>60)
[2017-09-03] MEDS: Insulin REGULAR(*) 1 UNITS UNIT SUBCUT SCH ×4 (07:31→21:21)
[2017-09-03] MEDS ORDERED: Magnesium Sulfate IV* 3 GM in NS 0.9% 100 ML* 100 ML IVPB ONE (07:39)
[2017-09-03] MEDS ORDERED: Albuterol/Ipratropium NEB.SOL* Albuterol 2.5 MG/Ipratropium 0.5 MG 3 ML INH PRN (07:55)
[2017-09-03] MEDS ORDERED: Magnesium Sulfate 2 GM IV IVPB ONE (08:00)
[2017-09-03] MEDS ORDERED: Albuterol 2.5 MG/3 ML NEB.SOL* (0.083%) INH PRN (08:08)
[2017-09-03] MEDS: Pancrelipase CAP* 5,000 UNITS CAP PO SCH ×3 (08:09→17:34)
[2017-09-03] MEDS ORDERED: Spiriva Inhaler DEVICE* 1 EACH DEVICE SCH (09:00)
[2017-09-03] MEDS ORDERED: Magnesium Sulfate 1 GM IV* 1 GM/100 ML BAG IV ONE (09:00)
[2017-09-03] MEDS: Lactulose* 15 ML UDC PO SCH ×3 (09:26→21:23)
[2017-09-03] MEDS: Artificial Tears* 15 ML BTL BOTH EYES SCH (09:28)
[2017-09-03] MEDS: Tiotropium CAP.INH* CAP.INH/18 MCG (USE ORDER SET !) INH SCH (09:29)
[2017-09-03] MEDS ORDERED: Potassium Chlor TAB* 20 MEQ TAB.ER PO SCH (11:00)
[2017-09-03] MEDS ORDERED: Potassium Chloride LIQUID* 20 MEQ PACKET PO ONE (11:27)
[2017-09-03] MEDS: Insulin GLARGINE(*) 1 UNITS UNIT SUBCUT SCH (12:12)
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
--- NOTE | 2017-09-03 22:11 | CONS ---
PULMONARY CONSULTATION REPORT: DATE OF CONSULT: 09/03/17 CONSULTATION REQUESTED BY: ELENI Davila REASON FOR CONSULT: Evaluation of severe COPD, cor pulmonale. HISTORY OF PRESENT ILLNESS: 82-year-old female, former smoker with significant smoking history, quit in who presents initially for evaluation of hyperglycemia and worsening shortness of breath. The patient had worsening shortness of breath since April of last year. The patient recently had cough and shortness of breath and general malaise, was seen by primary care physician and was started on Z-David. The patient has been having worsening generalized weakness. Also noticed, her sugars were elevated and presented to emergency room for further evaluation on 08/24/17. The patient has history of gallstone pancreatitis in the past. The patient was noted to have significantly elevated liver function test and was also noted to have elevated potassium and INR and was admitted to ICU for close monitoring. The patient was also noted to have significant bilateral pleural effusions upon admission. Elevated LFTs were attributed to congestive hepatopathy. The patient also needed higher FiO2 secondary to [id number] respiratory failure. The patient was temporized in ICU and was transferred to medical floor. Pulmonary consultation was requested for evaluation of severe COPD and also for cor pulmonale evaluation. The patient was seen and examined at bedside earlier today. The patient is a very pleasant female. The patient reports improvement in her breathing currently. She denies cough or sputum production. The patient was also rescued with BiPAP use while in the ICU. The patient reported difficulty tolerating the BiPAP. The patient is requiring O2 supplementation at 4 L/min. The patient reports that she has not seen utilization engineer in the past. The patient reports that she was told about the diagnosis of COPD. She currently uses oxygen at 2 L/min at night. The patient denies history of recurrent bronchitis. The patient denies chronic cough. The patient reports mild dyspnea on exertion; however, denies significant limitation in her activity. She lives alone at home and has a paying guest that helps her. The patient's son and grandchildren live in the area. The patient reports that she has not been on any inhalers for COPD. I have personally reviewed all records since the current admission, I have also reviewed the imaging studies performed on this admission in comparison with prior chest x-rays and CT scan from 2014. CT scan of the chest performed on 08/25/17 was personally reviewed by me - the patient noted to have multiple bullae bilaterally, which were also seen on prior CT from 2013. She has a large bulla in right middle lobe area. The patient has slight progression of the bullous emphysematous disease in comparison with prior studies. Current study also shows bilateral pleural effusions and subsegmental atelectasis. She also has evidence of pulmonary vascular congestion. There is also evidence of pulmonary hypertension on current CT scan. The patient also with evidence of pulmonary hypertension. The patient denies lower extremity edema. The patient reported that just over the past 2 to 3 months, she has noticed lower extremity swelling. She also has history of breast cancer and underwent mastectomy 40 years ago. No suspicious nodules or masses noted on current CT. The patient reports inability to tolerate noninvasive ventilation due to claustrophobia concern. PAST MEDICAL HISTORY: 1. Type 2 diabetes. 2. Osteoporosis. 3. Hyperlipidemia. 4. COPD. 5. Remote history of gallstone pancreatitis. 6. Breast cancer with mastectomy 40 years ago. PAST SURGICAL HISTORY: 1. Left mastectomy. 2. Cholecystectomy in 2005 MEDICATIONS: 1. Cinnamon. 2. Vitamin B12. 3. Lantus. 4. Metformin. 5. Reglan. 6. Pancrelipase. 7. Systane drops. 8. Glipizide. ALLERGIES: CLARITHROMYCIN, LEVOFLOXACIN, TETRACYCLINE. FAMILY HISTORY: Mother with cardiac disease. SOCIAL HISTORY: Significant smoking history, quit in . Denies alcohol or drug abuse. PHYSICAL EXAM: The patient in chair, in no apparent distress, eating lunch. Vital Signs: Temperature 97.5, pulse 82 beats per minute, respiratory rate 20 per minute, O2 sat 93% on 3 L, blood pressure 153/78. HEENT: Pupils are equal and reactive to light. Mucous membranes moist, No JVD. Lungs: Diminished air entry bilaterally, decreased at bases. No wheeze present on auscultation. Cardiovascular: S1, S2 present, regular. Abdomen: Soft, nontender, nondistended. Bowel sounds present. Extremities: Normal range of motion. Trace edema bilaterally. Neurologic: Alert, awake, and oriented x3. No focal deficits. DIAGNOSTIC STUDIES/LAB DATA: WBC count 6.9, hemoglobin 13.3, hematocrit 43, platelet count 77. Blood gas analysis from 08/25/17 showed severe respiratory acidosis and hypercapnia with pCO2 of 107, pH of 7.09, pO2 of 80 while on 5 L. The patient required rescue BiPAP at that time also due to altered mental status. Sodium 142, potassium 3.4, chloride 101, bicarb 42, BUN 15, creatinine 0.34, glucose 155. AST 26, ALT 101 trending down, alkaline phosphatase 55. Troponin 0.02. Albumin 2.8. Influenza A and B negative. Chest x-ray and CT of the chest as described above in HPI. 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 The patient clinically improved, transitioned to medical floor. The patient with evidence of hypercapnia still given elevated bicarb on BMP. She has been requiring O2 supplementation 4 L/minute. The patient does have signs of severe pulmonary hypertension and cor pulmonale. Elevated transaminases likely secondary to congestive hepatopathy. The patient has severe bullous emphysematous lung disease resulting in significant hypoxemia and thereby pulmonary hypertension. The patient not wanting aggressive measures. I have discussed in length about pathophysiology and prognosis of severe obstructive lung disease. Consequences of hypoxemia and hypercapnia were also discussed with the patient. The patient clearly expressed that she does not want excessive measures. The patient also reported that she could not tolerate BiPAP, understands that it might be important to prevent morbidity and mortality in her case. The patient agreed to try BiPAP tonight with nasal interface. If the patient could tolerate BiPAP at nasal interface, could be discharged with arrangements for BiPAP at home. The patient also clearly expressed that she does not want to use oxygen during the day. The patient understands the consequences of hypoxemia including . She would want to continue with O2 at night at this point. I think palliative care consultation is optimal at this time to delineate future goals for the patient. The patient also did not want to continue with use of inhalers or nebulizers at this point. The patient reports that she is quite happy with her current functional status. Her expected prognosis is probably 6 months or less at this time and palliative care is appropriate. Thank you for allowing me to participate in the care of your patient. Will follow up with you. The above recommendations were discussed with ELENI Davila. [id number]/[facility] #: [id number] JORDAN
[2017-09-04] MEDS: Tobramycin/Dexameth OPTH.SUSP* 2.5 M L BTL BOTH EYES SCH ×6 (01:21→22:25)
[2017-09-04] MEDS: Heparin VIAL(*) 5000 UNITS/ML VIAL (FIVE THOUSAND) SUBCUT SCH ×3 (06:12→22:25)
[2017-09-04 06:33] LABS: ABS Basophils 0 10^3/ul (0-0.2); ABS Eosinophils 0.3 10^3/ul (0-0.6); ABS Lymphocytes 1.2 10^3/ul (1.0-4.8); ABS Monocytes 0.7 10^3/ul (0-0.8); ABS Neutrophils 4.1 10^3/ul (1.5-7.7); ABS Nucleated RBC 0 10^3/ul; Eosinophil % 4.4 % (0-6); Hematocrit 40 % (35-47); Hemoglobin 12.5 g/dl (12.0-16.0); Lymphocyte % 18.3 % (25-47); Mean Corpuscular HGB Conc 31 g/dl (31-36); Mean Corpuscular Hemoglobin 29 pg (27-31); Mean Corpuscular Volume 93 fL (80-97); Mean Platelet Volume 10.5 um3 (7.4-10.4); Nucleated Red Blood Cells % 0; Platelet Count 76 10^3/ul (150-450); Red Blood Count 4.35 10^6/ul (4.0-5.4); Red Cell Distribution Width 15 % (10.5-15); White Blood Count 6.4 10^3/ul (3.5-10.8)
[2017-09-04 06:47] LABS: EGFR Non-African American 173.4 (>60)
[2017-09-04] MEDS: Insulin REGULAR(*) 1 UNITS UNIT SUBCUT SCH ×4 (08:10→23:05)
[2017-09-04] MEDS: Tiotropium CAP.INH* CAP.INH/18 MCG (USE ORDER SET !) INH SCH (08:13)
[2017-09-04] MEDS: Pancrelipase CAP* 5,000 UNITS CAP PO SCH ×3 (08:40→17:38)
[2017-09-04] MEDS: Artificial Tears* 15 ML BTL BOTH EYES SCH (08:41)
[2017-09-04] MEDS: Lactulose* 15 ML UDC PO SCH ×3 (08:41→22:24)
--- NOTE | 2017-09-04 11:21 | CONSULT ---
Palliative / Hospice Consult Ordering Provider: Balaji Grant - Subjective Code Status: DNR Advance Directives Location: In Chart MOLST Part A Completed: Yes - DNR Date: 08/25/17 MOLST Part E Completed:: Yes - DNI Date: 08/25/17 - History or Present Illness History or Present Illness: This 82 year old woman was admitted 11 days ago when she presented to the ER with extreme hyperglycemia, n,v, malaise and fatigue. She was found to have very elevated LFTs and K, BNP 1070, and pleural effusions. She claims to have had no history of significant COPD, and had history of DM2, Osteoporosis, HLD, gallstone pancreatitis in 2005 and breast cancer 40 years ago. She quite smoking in the . Her hospital course has been quite complicated, involving fulminant hepatic failure with ALT 1630, AST 2437 and hepatic encephalopathy which has cleared, but she still requires lactulose and has a persistently elevated NH4 at 83. In addition, she has had pleural effusions and has had acute on chronic respiratory failure with CO2 retention requiring an ICU stay on NIPPV. SH ei snow on 3 L O2 with BiPAP at night. The patient lives in her own home, and has just made arrangements to have a friend, Alysa Mireles age 85, live there as well, free of charge in exchange for helping the patient at home. She says she is refusing any rehab, and insists she can ambulate on her own, although the chart indicates she is a 2 person assist for transfers. She has a son who lives in [place], over 70 miles from her home. She wants to return home and says she espinal snot want to return to the hospital. Lab Values: Abnormal Lab Results 09/03/17 09/03/17 09/03/17 11:32 17:01 21:08 WBC RBC Hgb Hct MCV MCH MCHC RDW Plt Count MPV Neut % (Auto) Lymph % (Auto) Bland % (Auto) Eos % (Auto) Baso % (Auto) Absolute Neuts (auto) Absolute Lymphs (auto) Absolute Monos (auto) Absolute Eos (auto) Absolute Basos (auto) Absolute Nucleated RBC Nucleated RBC % Sodium Potassium Chloride Carbon Dioxide Anion Gap BUN Creatinine Est GFR ( Amer) Est GFR (Non-Af Amer) BUN/Creatinine Ratio Glucose POC Glucose (mg/dL) 155 H 256 H 163 H Calcium Magnesium 09/04/17 09/04/17 09/04/17 06:00 06:00 07:44 WBC 6.4 RBC 4.35 Hgb 12.5 Hct 40 MCV 93 MCH 29 MCHC 31 RDW 15 Plt Count 76 L MPV 10.5 H Neut % (Auto) 64.9 Lymph % (Auto) 18.3 L Bland % (Auto) 11.7 H Eos % (Auto) 4.4 Baso % (Auto) 0.7 Absolute Neuts (auto) 4.1 Absolute Lymphs (auto) 1.2 Absolute Monos (auto) 0.7 Absolute Eos (auto) 0.3 Absolute Basos (auto) 0 Absolute Nucleated RBC 0 Nucleated RBC % 0 Sodium 141 Potassium 4.2 Chloride 101 Carbon Dioxide 39 H Anion Gap 1 L BUN 14 Creatinine 0.36 L Est GFR ( Amer) 223.0 Est GFR (Non-Af Amer) 173.4 BUN/Creatinine Ratio 38.9 H Glucose 122 H POC Glucose (mg/dL) 100 Calcium 8.3 L Magnesium 2.0 Laboratory Last Values WBC 6.4 10^3/ul (3.5-10.8) 09/04/17 06:00 RBC 4.35 10^6/ul (4.0-5.4) 09/04/17 06:00 Hgb 12.5 g/dl (12.0-16.0) 09/04/17 06:00 Hct 40 % (35-47) 09/04/17 06:00 MCV 93 fL (80-97) 09/04/17 06:00 MCH 29 pg (27-31) 09/04/17 06:00 MCHC 31 g/dl (31-36) 09/04/17 06:00 RDW 15 % (10.5-15) 09/04/17 06:00 Plt Count 76 10^3/ul (150-450) L 09/04/17 06:00 MPV 10.5 um3 (7.4-10.4) H 09/04/17 06:00 Neut % (Auto) 64.9 % (38-83) 09/04/17 06:00 Lymph % (Auto) 18.3 % (25-47) L 09/04/17 06:00 Bland % (Auto) 11.7 % (0-7) H 09/04/17 06:00 Eos % (Auto) 4.4 % (0-6) 09/04/17 06:00 Baso % (Auto) 0.7 % (0-2) 09/04/17 06:00 Absolute Neuts (auto) 4.1 10^3/ul (1.5-7.7) 09/04/17 06:00 Absolute Lymphs (auto) 1.2 10^3/ul (1.0-4.8) 09/04/17 06:00 Absolute Monos (auto) 0.7 10^3/ul (0-0.8) 09/04/17 06:00 Absolute Eos (auto) 0.3 10^3/ul (0-0.6) 09/04/17 06:00 Absolute Basos (auto) 0 10^3/ul (0-0.2) 09/04/17 06:00 Absolute Nucleated RBC 0 10^3/ul 09/04/17 06:00 Nucleated RBC % 0 09/04/17 06:00 Giant Platelets Present 08/31/17 11:17 Hem Pathologist Commnt 08/31/17 11:17 INR (Anticoag Therapy) 1.14 (0.77-1.02) H 08/27/17 05:20 Patient Temperature Not Reportable 08/25/17 13:50 ABG pH 7.09 (7.35-7.45) L* 08/25/17 13:50 ABG pH (Temp Correct) Not Reportable 08/25/17 13:50 ABG pCO2 107 mmHg (35-45) H* 08/25/17 13:50 ABG pCO2 (Temp Corrct Not Reportable 08/25/17 13:50 ABG pO2 80 mmHg (80-100) 08/25/17 13:50 ABG pO2 (Temp Correct Not Reportable 08/25/17 13:50 ABG HCO3 24.2 mmol/L (19-31) 08/25/17 13:50 ABG O2 Saturation 95.8 % (95-98) 08/25/17 13:50 ABG Base Excess -0.8 (-2.0-2.0) 08/25/17 13:50 Respiration Rate Not Reportable 08/25/17 13:50 O2 Delivery Device nasal cannula 5 lpm 08/25/17 13:50 Ventilator Type Not Reportable 08/25/17 13:50 Vent Mode Not Reportable 08/25/17 13:50 FiO2 Not Reportable 08/25/17 13:50 Inspiratory Time Not Reportable 08/25/17 13:50 PEEP Not Reportable 08/25/17 13:50 Pressure Support Not Reportable 08/25/17 13:50 Pressure Control Not Reportable 08/25/17 13:50 EPAP Not Reportable 08/25/17 13:50 IPAP Not Reportable 08/25/17 13:50 BiPAP Not Reportable 08/25/17 13:50 Sodium 141 mmol/L (133-145) 09/04/17 06:00 Potassium 4.2 mmol/L (3.5-5.0) 09/04/17 06:00 Chloride 101 mmol/L (101-111) 09/04/17 06:00 Carbon Dioxide 39 mmol/L (22-32) H 09/04/17 06:00 Anion Gap 1 mmol/L (2-11) L 09/04/17 06:00 BUN 14 mg/dL (6-24) 09/04/17 06:00 Creatinine 0.36 mg/dL (0.51-0.95) L 09/04/17 06:00 Est GFR ( Amer) 223.0 (>60) 09/04/17 06:00 Est GFR (Non-Af Amer) 173.4 (>60) 09/04/17 06:00 BUN/Creatinine Ratio 38.9 (8-20) H 09/04/17 06:00 Glucose 122 mg/dL (70-100) H 09/04/17 06:00 POC Glucose (mg/dL) 100 mg/dL (70-100) 09/04/17 07:44 Lactic Acid 1.8 mmol/L (0.5-2.0) 08/24/17 17:49 Calcium 8.3 mg/dL (8.6-10.3) L 09/04/17 06:00 Phosphorus 5.0 mg/dL (2.5-5.0) 08/25/17 05:18 Magnesium 2.0 mg/dL (1.9-2.7) 09/04/17 06:00 Total Bilirubin 0.80 mg/dL (0.2-1.0) 09/03/17 05:43 Direct Bilirubin 0.70 mg/dL (0.03-0.18) H 08/25/17 05:18 Indirect Bilirubin 0.5 mg/dL (0.3-1.0) 08/25/17 05:18 AST 26 U/L (13-39) 09/03/17 05:43 ALT 101 U/L (7-52) H 09/03/17 05:43 Alkaline Phosphatase 55 U/L (34-104) 09/03/17 05:43 Ammonia 83 mol/L (16-53) H 08/31/17 11:17 Troponin I 0.02 ng/mL (<0.04) 09/02/17 20:00 C-Reactive Protein 22.96 mg/L (< 5.00) H 08/24/17 11:47 B-Natriuretic Peptide 1070 pg/mL (-100) H 08/24/17 11:47 Total Protein 5.0 g/dL (6.4-8.9) L 09/03/17 05:43 Albumin 2.8 g/dL (3.2-5.2) L 09/03/17 05:43 Globulin 2.2 g/dL (2-4) 09/03/17 05:43 Albumin/Globulin Ratio 1.3 (1-3) 09/03/17 05:43 Lipase 14 U/L (11.0-82.0) 08/24/17 13:51 TSH 5.39 mcIU/mL (0.34-5.60) 08/24/17 11:47 Urine Color Evette 08/24/17:18 Urine Appearance Cloudy 08/24/17:18 Urine pH 5.0 (5-9) 08/24/17:18 Ur Specific [place] 1.019 (1.010-1.030) 08/24/17:18 Urine Protein 2+(100 mg/dl) (Negative) A 08/24/17:18 Urine Ketones Negative (Negative) 08/24/17 22:18 Urine Blood 1+ (Negative) A 08/24/17 22:18 Urine Nitrate Negative (Negative) 08/24/17 22:18 Urine Bilirubin Negative (Negative) 08/24/17 22: Urine Urobilinogen Negative (Negative) 08/24/17 22:18 Ur Leukocyte Esterase Trace (Negative) A 08/24/17 22:18 Urine WBC (Auto) 1+(6-10/hpf) (Absent) A 08/24/17 22:18 Urine RBC (Auto) Trace(0-2/hpf) (Absent) 08/24/17 22:18 Ur Squamous Epith Cells Present (Absent) A 08/24/17 22:18 Ur Transition Epith Cell Present (Absent) A 08/24/17 22:18 Amorphous Crystals Present (Absent) A 08/24/17 22:18 Urine Bacteria Absent (Absent) 08/24/17 22:18 Hyaline Casts Present (Absent) A 08/24/17 22:18 Urine Glucose 2+(150 mg/dl) (Negative) A 08/24/17 22:18 Salicylates < 2.50 mg/dL (<30) 08/24/17 11:47 Acetaminophen < 15 mcg/mL 08/24/17 11:47 Hepatitis A IgM Ab Nonreactive (Nonreactive) 08/24/17 11:47 Hep Bs Antigen Nonreactive (Nonreactive) 08/24/17 11:47 Hep B Core IgM Ab Nonreactive (Nonreactive) 08/24/17 11:47 Hepatitis C Antibody Nonreactive (Nonreactive) 08/24/17 11:47 Influenza A (Rapid) Negative (Negative) 08/24/17 19:21 Influenza B (Rapid) Negative (Negative) 08/24/17 19:21 - Objective Active Medications: Albuterol (Ventolin 2.5 Mg/3 Ml Neb.Wendi*) 2.5 mg INH Q4H PRN PRN Reason: SOB/WHEEZING Device (Tiotropium Inhaler Device*) 1 each .SEE ORDER .USE w/ SPIRIVA CAPS [facility] Dextrose (D50w Syringe 50 Ml*) 12.5 gm IV PUSH .FOR FS < 60 - SS PRN PRN Reason: FS < 60 Heparin Sodium (Porcine) (Heparin Flush Picc/Ml/Cvc(*)) 1 - 3 ml FLUSH 0600, 1800 SUJATA PRN Reason: Protocol Last Admin: 09/04/17 06:12 Dose: 2 ml Heparin Sodium (Porcine) (Heparin Vial(*)) 5,000 units SUBCUT Q8HR [facility] Last Admin: 09/04/17 06:12 Dose: 5,000 units Insulin Glargine (Lantus(*)) 10 units SUBCUT Q24H [facility] Last Admin: 09/03/17 12:12 Dose: 10 unit Insulin Human Regular (Insulin Regular(*)) 0 units SUBCUT ACHS [facility] PRN Reason: Protocol Last Admin: 09/04/17 08:10 Dose: Not Given Lactulose (Lactulose*) 15 ml PO TID [facility] Last Admin: 09/04/17 08:41 Dose: 15 ml Morphine Sulfate (Morphine Inj (Syringe)*) 2 mg IV Q2H PRN PRN Reason: PAIN - MODERATE Last Admin: 08/31/17 15:02 Dose: 1 mg Ondansetron HCl (Zofran Inj*) 4 mg IV Q6H PRN PRN Reason: NAUSEA Pancrelipase (Zenpep Delayed Cap*) 5,000 units PO TID WITH MEALS [facility] Last Admin: 09/04/17 08:40 Dose: 5,000 units Polyvinyl Alcohol (Polyvinyl Alcohol 1.4% Opth*) 1 drop BOTH EYES DAILY [facility] Last Admin: 09/04/17 08:41 Dose: 1 drop Sodium Chloride (Sodium Chloride 0.65% Nasal [place]*) 2 spray BOTH NARES Q2H PRN PRN Reason: DRY NARES Last Admin: 09/02/17 21:42 Dose: 2 spray Tiotropium [place] (Spiriva Cap.Inh*) 1 cap INH DAILY [facility] Last Admin: 09/04/17 08:13 Dose: 1 cap Tobramycin/Dexamethasone (Tobradex 0.3-0.1%*) 1 drop BOTH EYES Q4H [facility] Last Admin: 09/04/17 08:41 Dose: 1 drp Vital Signs: Vital Signs: Temp Pulse Resp BP Pulse Ox 97.4 F 77 16 141/58 99 09/04/17 07:49 09/04/17 07:49 09/04/17 08:00 09/04/17 07:49 09/04/17 07:49 Patient Weight: Weight 120 lb 4.8 oz Intake and Output: Intake & Output 09/02/17 09/03/17 09/04/17 09/05/17 06:59 06:59 06:59 06:59 Intake Total 6327 424 9526 300 Output Total 4584 130 0328 200 Balance -510 160 240 100 Weight 117 lb 12.8 oz 120 lb 4.8 oz Intake: Oral 6708 105 1577 300 Output: Urine 700 1350 200 Herrmann 1550 Other: Estimated Void Small Small # Bowel Movements 0 1 0 Estimated Stool Amount Medium Large # Voids 1 1 1 ADLs: Meal Record Start: 08/24/17 15: 36 Freq: DAILY@0900,1400,1800 Status: Active Protocol: Created 08/24/17 15:36 System (Rec: 08/24/17 15:36 System ICU-M11) Document 08/24/17 18:00 [id number] (Rec: 08/24/17 19:00 [id number] ICU-C06) Document 08/25/17 09:00 [id number] (Rec: 08/25/17 11:43 [id number] ICU-C06) Document 08/25/17 13:00 [id number] (Rec: 08/25/17 15:41 [id number] ICU-C06) Document 08/25/17 18:00 [id number] (Rec: 08/25/17 19:47 [id number] ICU-M11) Document 08/26/17 09:00 PTX1356 (Rec: 08/26/17 13:21 [id number] ICU-C06) Document 08/26/17 13:00 [id number] (Rec: 08/26/17 13:21 [id number] ICU-C06) Document 08/26/17 17:53 HJM6554 (Rec: 08/26/17 17:54 [id number] ICU-C06) Document 08/27/17 18:00 WOK6545 (Rec: 08/27/17 18:03 JDU0585 ICU-C12) Document 08/28/17 09:00 [id number] (Rec: 08/28/17 09:07 VCE1406 ICU-C25) Document 08/28/17 13:00 ZGI1763 (Rec: 08/28/17 13:28 [id number] ICU-C25) Document 08/28/17 18:00 VMS3416 (Rec: 08/28/17 18:26 [id number] ICU-C25) Document 08/29/17 09:00 WET7773 (Rec: 08/29/17 09:01 HBM5062 ICU-C25) Document 08/29/17 13:00 FZP8971 (Rec: 08/29/17 13:44 UDS0781 ICU-C25) Document 08/29/17 17:49 PBL1263 (Rec: 08/29/17 17:49 VZJ7215 ICU-C25) Document 08/30/17 09:00 YHK4128 (Rec: 08/30/17 13:09 [id number] ICU-C12) Document 08/30/17 13:00 NBW2565 (Rec: 08/30/17 15:24 TFI1353 ICU-C14) Document 08/31/17 14:00 WRK8571 (Rec: 08/31/17 15:01 ZMU0294 MED-C14) Document 08/31/17 18:00 FVY7689 (Rec: 08/31/17 21:44 [id number] MED-C11) Document 09/01/17 09:00 QQS6747 (Rec: 09/01/17 09:19 DIX0768 MED-C09) Document 09/01/17 14:00 YHK5899 (Rec: 09/01/17 14:19 GAP3992 MED-C09) Document 09/01/17 18:00 CSG7246 (Rec: 09/01/17 18:17 PXR8011 MED-C11) Document 09/02/17 09:00 HLW3739 (Rec: 09/02/17 11:10 DAG3723 MED-C09) Document 09/02/17 14:00 ARE6321 (Rec: 09/02/17 14:33 FDM6420 MED-C09) Document 09/02/17 18:00 SKV5011 (Rec: 09/02/17 18:56 DEH1197 MED-C11) Document 09/03/17 09:00 HFM9419 (Rec: 09/03/17 09:53 ISH2008 MED-C09) Document 09/03/17 14:00 LYT8653 (Rec: 09/03/17 14:35 HQV2543 MED-C09) Document 09/03/17 18:00 QYW3107 (Rec: 09/03/17 18:07 PSD1867 MED-C11) Document 09/04/17 09:00 GXA2270 (Rec: 09/04/17 10:57 FZI3645 MED-C11) Intake and Output Start: 08/24/17 15: 36 Freq: 06,14,22 Status: Cancelled Protocol: Created 08/24/17 15:36 System (Rec: 08/24/17 15:36 System ICU-M11) Document 08/24/17 22:00 ULB4046 (Rec: 08/24/17 22:24 WZE2065 ICU-M11) Document 08/24/17 23:34 HQX6256 (Rec: 08/24/17 23:34 HYV6137 ICU-C10) Document 08/25/17 06:00 LTN7040 (Rec: 08/25/17 06:10 VVU8713 ICU-C06) Intake and Output Start: 08/25/17 14: 11 Freq: 06,14,2200 Status: Active Protocol: Document 08/25/17 14:11 [id number] (Rec: 08/25/17 15:18 ZBR2984 ICU-C06) Created 08/25/17 14:11 SZD5185 (Rec: 08/25/17 14:11 [facility] NELIDA-BG10) Document 08/25/17 22:00 HHO3103 (Rec: 08/25/17 22:19 SVB2057 ICU-C06) Document 08/26/17 05:35 KWN4703 (Rec: 08/26/17 05:35 PEM7906 ICU-C18) Document 08/26/17 14:35 VUL0208 (Rec: 08/26/17 14:38 UZX5144 ICU-C14) Document 08/26/17 22:00 ZOR4943 (Rec: 08/26/17 23:26 SSV9822 ICU-C06) Document 08/27/17 06:00 AFD4176 (Rec: 08/27/17 06:12 YSV4891 ICU-M11) Document 08/27/17 13:44 SZH0230 (Rec: 08/27/17 13:44 FZM6683 ICU-M05) Document 08/27/17 22:00 GNK6008 (Rec: 08/27/17 23:32 NVG5347 ICU-M13) Document 08/28/17 06:00 TZG6732 (Rec: 08/28/17 06:00 GUP0105 ICU-C25) Document 08/28/17 12:11 KYX8021 (Rec: 08/28/17 12:11 NMV3634 ICU-C25) Document 08/28/17 22:00 XGD6788 (Rec: 08/28/17 23:14 QCT7942 ICU-C25) Document 08/29/17 05:43 GQE8140 (Rec: 08/29/17 05:45 VUG0649 ICU-M13) Document 08/29/17 12:06 ZMG1578 (Rec: 08/29/17 12:06 RRS9604 ICU-C25) Document 08/29/17 21:37 AJY1342 (Rec: 08/29/17 21:37 ZLE3943 ICU-C10) Document 08/29/17 22:30 AMW2499 (Rec: 08/29/17 22:30 KCO0323 ICU-C20) Document 08/30/17 05:31 XBC7827 (Rec: 08/30/17 05:31 FJK5920 ICU-C20) Document 08/30/17 14:00 QNP3524 (Rec: 08/30/17 15:24 YNP5852 ICU-C14) Document 08/30/17 21:33 ZBQ8561 (Rec: 08/30/17 21:33 REE9746 ICU-C15) Document 08/31/17 05:27 AGK9828 (Rec: 08/31/17 05:27 TAR2259 ICU-C12) Document 08/31/17 14:00 JJT7117 (Rec: 08/31/17 15:01 HAZ2054 MED-C14) Document 08/31/17 22:00 XMB7860 (Rec: 08/31/17 22:17 HJN1096 MED-C11) Document 09/01/17 03:18 FJD8190 (Rec: 09/01/17 03:18 ONP4973 MED-C09) Document 09/01/17 14:00 MWX9863 (Rec: 09/01/17 14:19 GLX6681 MED-C09) Document 09/01/17 20:51 RUT4605 (Rec: 09/01/17 20:52 BQL7239 MED-M04) Document 09/01/17 21:00 VUR6178 (Rec: 09/01/17 21:00 GWE9637 MED-C11) Document 09/02/17 05:56 NAZ4900 (Rec: 09/02/17 05:56 LTU8770 MED-M20) Document 09/02/17 14:00 NLA6812 (Rec: 09/02/17 14:33 VZE0620 MED-C09) Document 09/02/17 20:49 LBB7997 (Rec: 09/02/17 20:49 TKN0100 MED-C11) Document 09/03/17 05:23 ALM7325 (Rec: 09/03/17 05:23 ZRR0426 MED-C09) Document 09/03/17 14:00 OVL1525 (Rec: 09/03/17 14:35 QHK9224 MED-C09) Document 09/03/17 20:49 WSS6916 (Rec: 09/03/17 20:49 VCR8866 MED-C11) Document 09/04/17 06:00 DIG4971 (Rec: 09/04/17 06:19 RLE3018 MED-C07) Eyes: No Scleral Icterus, PERRLA Ears/Nose/Mouth/Throat: NL Teeth, Lips, Gums, Clear Oropharnyx, Mucous Membranes Moist Neck: NL Appearance and Movements; NL JVP, Trachea Midline Cardiovascular: NL Sounds; No Murmurs; No JVD, RRR, No Edema Abdominal: NL Sounds; No Tenderness; No Distention, No Hepatosplenomegaly Extremities: No Edema, No Clubbing, Cyanosis Neurological: Alert and Oriented x 3, NL Sensation, NL Muscle Strength and Tone , - - CN II-XII - Assessment Assessment: This patient is quite alert and oriented at this time and she is very insistent that she wants to return home. She has significant respiratory failure and also compromised liver function, as well as cor pulmonale, so she is eligible for hospice services when and if she does return to her home in [facility]. If she is discharged for rehab (which she tells me she does not need), she should be referred to [facility] when she is discharged from that facility. The patient has significant life-limiting illness and does not want any further hospitalizations, and a good palliative home care program through the Medicare Hospice benefit would give her the best chance of attaining the future care she desires. Thanks for asking me to see her. - Plan Consult Plan (MU): Hospice - Time On Unit Date of Evaluation: 09/04/17 Hospice Consult Time in: 09:45 Hospice Consult Time Out: 11:00 Hospice Consult Time Total: 75 > 50% of Time Spend In Counseling or Coordinating Care: Yes
[2017-09-04] MEDS: Insulin GLARGINE(*) 1 UNITS UNIT SUBCUT SCH (12:45)
--- NOTE | 2017-09-04 17:46 | PN ---
Subjective Date of Service: 09/04/17 Interval History: Pt choked somewhat on post dinner sandwich and up until 3am coughing. Therefore did not try bipap. Pt does not think she has illness that will kill her in 6 months. And also does not want to go to rehab. says she was able to get to bathroom with aide and walker twice but then very tired. she asked to not work with PT while she rested. Unclear if they returned to reassess. Evaluated by Palliative Care Family History: Unchanged from Admission Social History: Unchanged from Admission Past Medical History: Unchanged from Admission Objective Active Medications: Albuterol (Ventolin 2.5 Mg/3 Ml Neb.Wendi*) 2.5 mg INH Q4H PRN PRN Reason: SOB/WHEEZING Device (Tiotropium Inhaler Device*) 1 each .SEE ORDER .USE w/ SPIRIVA CAPS [facility] Dextrose (D50w Syringe 50 Ml*) 12.5 gm IV PUSH .FOR FS < 60 - SS PRN PRN Reason: FS < 60 Heparin Sodium (Porcine) (Heparin Flush Picc/Ml/Cvc(*)) 1 - 3 ml FLUSH 0600, 1800 [facility] PRN Reason: Protocol Last Admin: 09/04/17 06:12 Dose: 2 ml Heparin Sodium (Porcine) (Heparin Vial(*)) 5,000 units SUBCUT Q8HR [facility] Last Admin: 09/04/17 14:21 Dose: 5,000 units Insulin Glargine (Lantus(*)) 10 units SUBCUT Q24H [facility] Last Admin: 09/04/17 12:45 Dose: 10 unit Insulin Human Regular (Insulin Regular(*)) 0 units SUBCUT ACHS [facility] PRN Reason: Protocol Last Admin: 09/04/17 12:49 Dose: Not Given Lactulose (Lactulose*) 15 ml PO TID [facility] Last Admin: 09/04/17 14:21 Dose: 15 ml Morphine Sulfate (Morphine Inj (Syringe)*) 2 mg IV Q2H PRN PRN Reason: PAIN - MODERATE Last Admin: 08/31/17 15:02 Dose: 1 mg Ondansetron HCl (Zofran Inj*) 4 mg IV Q6H PRN PRN Reason: NAUSEA Pancrelipase (Zenpep Delayed Cap*) 5,000 units PO TID WITH MEALS [facility] Last Admin: 09/04/17 17:38 Dose: 5,000 units Polyvinyl Alcohol (Polyvinyl Alcohol 1.4% Opth*) 1 drop BOTH EYES DAILY [facility] Last Admin: 09/04/17 08:41 Dose: 1 drop Sodium Chloride (Sodium Chloride 0.65% Nasal [place]*) 2 spray BOTH NARES Q2H PRN PRN Reason: DRY NARES Last Admin: 09/02/17 21:42 Dose: 2 spray Tiotropium [place] (Spiriva Cap.Inh*) 1 cap INH DAILY [facility] Last Admin: 09/04/17 08:13 Dose: 1 cap Tobramycin/Dexamethasone (Tobradex 0.3-0.1%*) 1 drop BOTH EYES Q4H [facility] Last Admin: 09/04/17 17:39 Dose: Not Given Vital Signs - 8 hr 09/04/17 09/04/17 11:30 16:01 Temperature 97.4 F 97.6 F Pulse Rate 79 80 Respiratory 16 20 Rate Blood Pressure 150/68 124/62 (mmHg) O2 Sat by Pulse 98 94 Oximetry Oxygen Devices in Use Now: Nasal Cannula Appearance: NAD Eyes: No Scleral Icterus, PERRLA Ears/Nose/Mouth/Throat: NL Teeth, Lips, Gums Neck: NL Appearance and Movements; NL JVP Respiratory: Symmetrical Chest Expansion and Respiratory Effort, - - blowing squeaky rhonchi b/l bases Cardiovascular: NL Sounds; No Murmurs; No JVD, RRR Abdominal: NL Sounds; No Tenderness; No Distention, No Hepatosplenomegaly Extremities: No Edema, No Clubbing, Cyanosis Skin: No Rash or Ulcers, No Nodules or Sclerosis Neurological: Alert and Oriented x 3 Nutrition: Taking PO's Result Diagrams: 09/04/17 06:00 09/04/17 06:00 Additional Lab and Data: Laboratory Results - last 24 hr 09/03/17 09/04/17 09/04/17 21:08 06:00 06:00 WBC 6.4 RBC 4.35 Hgb 12.5 Hct 40 MCV 93 MCH 29 MCHC 31 RDW 15 Plt Count 76 L MPV 10.5 H Neut % (Auto) 64.9 Lymph % (Auto) 18.3 L [place] % (Auto) 11.7 H Eos % (Auto) 4.4 Baso % (Auto) 0.7 Absolute Neuts (auto) 4.1 Absolute Lymphs (auto) 1.2 Absolute Monos (auto) 0.7 Absolute Eos (auto) 0.3 Absolute Basos (auto) 0 Absolute Nucleated RBC 0 Nucleated RBC % 0 Sodium 141 Potassium 4.2 Chloride 101 Carbon Dioxide 39 H Anion Gap 1 L BUN 14 Creatinine 0.36 L Est GFR ( Amer) 223.0 Est GFR (Non-Af Amer) 173.4 BUN/Creatinine Ratio 38.9 H Glucose 122 H POC Glucose (mg/dL) 163 H Calcium 8.3 L Magnesium 2.0 09/04/17 09/04/17 07:44 12:34 WBC RBC Hgb Hct MCV MCH MCHC RDW Plt Count MPV Neut % (Auto) Lymph % (Auto) [place] % (Auto) Eos % (Auto) Baso % (Auto) Absolute Neuts (auto) Absolute Lymphs (auto) Absolute Monos (auto) Absolute Eos (auto) Absolute Basos (auto) Absolute Nucleated RBC Nucleated RBC % Sodium Potassium Chloride Carbon Dioxide Anion Gap BUN Creatinine Est GFR ( Amer) Est GFR (Non-Af Amer) BUN/Creatinine Ratio Glucose POC Glucose (mg/dL) 100 127 H Calcium Magnesium Microbiology and Other Data: Microbiology 08/24/17 13:51 Blood Venous Aerobic Blood Culture - Final No Growth Day 5 08/24/17 13:51 Blood Venous Anaerobic Blood Culture - Final No Growth Day 5 08/24/17 22:18 Urine Urine Culture - Final Enterobacter Aerogenes 08/24/17 22:18 Urine Legionella Urinary Antigen - Final Negative Legionella Antigen 08/24/17 22:18 Urine Streptococcus pneumoniae Ag Screen - Final Negative S. pneumo Antigen 08/24/17 19:00 Nasal Influenza Types A,B Antigen (MILLY) - Final Specimen received for Influenza A/B Molecular testing Assess/Plan/Problems-Billing Assessment: Ms. Duenas is an 82 yo F with h/o COPD(on 02 at night) , DM2, pancreatic insufficiency and pseudocyst, s/p cholecystectomy for gallstone pancreatitis presents with SOB noted to have markedly elevated LFT's secondary to cor pulmonale with acute on chronic hypoxic and hypercarbic respiratory failure who is now down to 3L oxygen by nasal cannula on the medical floor. Patient's strength is improving. - Patient Problems (1) COPD (chronic obstructive pulmonary disease) Current Visit: Yes Status: Acute Code(s): J44.9 - CHRONIC OBSTRUCTIVE PULMONARY DISEASE, UNSPECIFIED SNOMED Code(s): 81686324 Comment: Appreciate Pulmonology rec encouraged bipap at night for acute on chronic hypercapnic resp failure as per above. Will trial smaller mask. has not actually attempted is on O2 at night at home. Continue albuterol PRN, continue Spiriva. appreciate Palliative care consult (2) Acute liver failure Current Visit: Yes Status: Acute Comment: Due to passive liver congestion from CHF as per above. Appreciate Gastroenterology consult. Hepatic encephalopathy resolved, patient A/O x 3. Continue Lactulose for now but repeat ammonia tomorrow. was 83 08/31 LFTs continue to fall, almost within normal range. (3) Cor pulmonale Current Visit: Yes Status: Acute Code(s): I27.81 - COR PULMONALE (CHRONIC) SNOMED Code(s): 42593869 Comment: Continues to improve, now off Bipap. Appears euvolemic at this point. Not on diuretics but may need small home going dose Pt had increased pulm pressures and RV overload on Echo with EF 40-45%, due to acute on chronic cor pulmonale in setting of severe COPD. CTA found large pleural effusions. (4) DM2 (diabetes mellitus, type 2) Current Visit: Yes Status: Acute Comment: continue lantus 10 units daily. Continue SSI. BG well controlled. (5) DNR (do not resuscitate) Current Visit: Yes Status: Acute Comment: (6) DVT prophylaxis Current Visit: Yes Status: Acute Code(s): FIZ6021 - SNOMED Code(s): 612101669 Comment: HSQ (7) Pancreatic insufficiency Current Visit: Yes Status: Acute Code(s): K86.89 - OTHER SPECIFIED DISEASES OF PANCREAS SNOMED Code(s): 35866763 Comment: Resume pancrealipase. (8) Respiratory failure Current Visit: Yes Status: Acute Code(s): J96.90 - RESPIRATORY FAILURE, UNSP , UNSP W HYPOXIA OR HYPERCAPNIA SNOMED Code(s): 998852450 Comment: Responded to NIPPV and now on 3L NC. Mixed hypercarbic and hypoxemic due to history of COPD, acute on chronic cor pulmonale with acute on chronic systolic/diastolic CHF and pleural effusions, and hepatic failure and encephalopathy also due to cor pulmonale and poor forward flow to liver. Unclear what lead to acute decompensation, question acute viral illness prior to admission? Did get 2L IVF boluses day of admission Appreciate [employer] consultation. Continue morphine prn for air hunger, discomfort. Patient in agreement to trial BiPAP at night as much as tolerated for hypercapnea (9) Dyslipidemia Current Visit: Yes Status: Chronic Code(s): E78.5 - HYPERLIPIDEMIA, UNSPECIFIED SNOMED Code(s): 965227209 Comment: Welchol stopped-can cause LFT elevation. Would recommend not resuming. Status and Disposition: Inpatient admission. Patient from home and lived independently prior to this admission, Continue PT eval for disposition though pt may refuse subacute rehab.
[2017-09-05] MEDS: Tobramycin/Dexameth OPTH.SUSP* 2.5 M L BTL BOTH EYES SCH ×6 (00:57→23:20)
[2017-09-05] MEDS: Heparin VIAL(*) 5000 UNITS/ML VIAL (FIVE THOUSAND) SUBCUT SCH ×3 (07:19→21:26)
[2017-09-05] MEDS: Insulin REGULAR(*) 1 UNITS UNIT SUBCUT SCH ×4 (08:30→21:27)
[2017-09-05] MEDS: Tiotropium CAP.INH* CAP.INH/18 MCG (USE ORDER SET !) INH SCH (09:06)
[2017-09-05] MEDS: Lactulose* 15 ML UDC PO SCH ×3 (10:00→21:27)
[2017-09-05] MEDS: Pancrelipase CAP* 5,000 UNITS CAP PO SCH ×3 (10:00→18:19)
[2017-09-05] MEDS: Artificial Tears* 15 ML BTL BOTH EYES SCH (10:00)
[2017-09-05] MEDS: Insulin GLARGINE(*) 1 UNITS UNIT SUBCUT SCH (12:25)
--- NOTE | 2017-09-05 16:50 | PN ---
Progress Note - Progress Note Date of Service: 09/05/17 - Pulm f/u note Note: Pt seen and examined at bedside. Pt reports feeling more tired today. Has not tried BiPAP last night Active Medications Generic Name Dose Route Start Last Admin Trade Name Freq PRN Reason Stop Dose Admin Albuterol 2.5 mg 09/03/17 08:08 Ventolin 2.5 Mg/3 Ml Neb.Wendi* INH Q4H PRN SOB/WHEEZING Device 1 each 09/03/17 09:00 Tiotropium Inhaler Device* .SEE ORDER .USE w/ SPIRIVA CAPS [facility] Dextrose 12.5 gm 08/24/17 13:14 D50w Syringe 50 Ml* IV PUSH .FOR FS < 60 - SS PRN FS < 60 Heparin Sodium (Porcine) 1 - 3 ml 08/25/17 11:00 09/05/17 08:29 Heparin Flush Picc/Ml/Cvc(*) FLUSH 1 ml 0600,1800 [facility] Administration Protocol Heparin Sodium (Porcine) 5,000 units 08/25/17 22:00 09/05/17 14:55 Heparin Vial(*) SUBCUT 5,000 units Q8HR [facility] Administration Insulin Glargine 10 units 08/31/17 12:00 09/05/17 12:25 Lantus(*) SUBCUT 10 unit Q24H [facility] Administration Insulin Human Regular 0 units 08/31/17 11:30 09/05/17 12:26 Insulin Regular(*) SUBCUT 6 units ACHS [facility] Administration Protocol Lactulose 15 ml 09/03/17 09:00 09/05/17 14:55 Lactulose* PO 15 ml TID [facility] Administration Morphine Sulfate 2 mg 08/24/17 15:40 08/31/17 15:02 Morphine Inj (Syringe)* IV 1 mg Q2H PRN Administration PAIN - MODERATE Ondansetron HCl 4 mg 08/24/17 15:10 Zofran Inj* IV Q6H PRN NAUSEA Pancrelipase 5,000 units 08/31/17 12:00 09/05/17 12:25 Zenpep Delayed Cap* PO 5,000 units TID WITH MEALS [facility] Administration Polyvinyl Alcohol 1 drop 08/25/17 09:00 09/05/17 10:00 Polyvinyl Alcohol 1.4% Opth* BOTH EYES 1 drop DAILY [facility] Administration Sodium Chloride 2 spray 09/02/17 04:17 03/24/18 21:42 Sodium Chloride 0.65% Nasal [place]* BOTH NARES 2 spray Q2H PRN Administration DRY NARES Tiotropium [place] 1 cap 09/03/17 09:00 09/05/17 09:06 Spiriva Cap.Inh* INH 1 cap DAILY [facility] Administration Tobramycin/Dexamethasone 1 drop 08/30/17 09:00 09/05/17 12:25 Tobradex 0.3-0.1%* BOTH EYES Not Given Q4H [facility] Vital Signs Temp Pulse Resp BP Pulse Ox 98.2 F 88 24 152/80 94 09/05/17 15:48 09/05/17 15:48 09/05/17 15:48 09/05/17 15:48 09/05/17 15:48 Gen: Pt lying in bed in NAD HEENT: No Scleral Icterus, PERRLA Respiratory: Diminished air entry b/l, rhonchi b/l bases Cardiovascular: S1, S2+, No JVD, RRR Abdominal: Soft, BS+ Extremities: No Edema, normal ROM Skin: No rash or ulcers Neurological: Alert and Oriented x 3 Laboratory Results - last 24 hr 09/04/17 09/04/17 09/05/17 17:37 22:33 07:50 Glucose 323 H POC Glucose (mg/dL) 149 H 127 H Ammonia 09/05/17 09/05/17 07:55 12:12 Glucose POC Glucose (mg/dL) 285 H Ammonia 50 I/R: 82 y o f with h/o severe bullous emphysema, a/w worsening SOB not improved with out pt therapy, being treated for acute COPD exacerbation, improving Pt also needed rescue BiPAP for severe hypercapnic resp failure Pt didnot want agressive measures, would like to c/w O2 at night only Pt also didnot want to c/w nebs and inhalers She has been needing O2 during daytime SHe has not used BiPAP last night, reports more fatigue and tired, concerning for possible worsening of hypercapnia Pt is DNR/DNI
--- NOTE | 2017-09-05 21:44 | PN ---
Subjective Date of Service: 09/05/17 Interval History: . saw patient at bedside "I want to go home" about to walk with RN in hallway to assess oxygen requirement...apparently desatted to 70's on 1.5 liters recently when walking, though maintains sats at rest. She was sitting up in chair with legs crossed when I entered. NAD. . Family History: Unchanged from Admission Social History: Unchanged from Admission Past Medical History: Unchanged from Admission Objective Active Medications: . Albuterol (Ventolin 2.5 Mg/3 Ml Neb.Wendi*) 2.5 mg INH Q4H PRN PRN Reason: SOB/WHEEZING Device (Tiotropium Inhaler Device*) 1 each .SEE ORDER .USE w/ SPIRIVA CAPS [facility] Dextrose (D50w Syringe 50 Ml*) 12.5 gm IV PUSH .FOR FS < 60 - SS PRN PRN Reason: FS < 60 Heparin Sodium (Porcine) (Heparin Flush Picc/Ml/Cvc(*)) 1 - 3 ml FLUSH 0600, 1800 [facility] PRN Reason: Protocol Last Admin: 09/05/17 18:21 Dose: Not Given Heparin Sodium (Porcine) (Heparin Vial(*)) 5,000 units SUBCUT Q8HR [facility] Last Admin: 09/05/17 21:26 Dose: 5,000 units Insulin Glargine (Lantus(*)) 10 units SUBCUT Q24H [facility] Last Admin: 09/05/17 12:25 Dose: 10 unit Insulin Human Regular (Insulin Regular(*)) 0 units SUBCUT ACHS [facility] PRN Reason: Protocol Last Admin: 09/05/17 21:27 Dose: 6 units Lactulose (Lactulose*) 15 ml PO TID [facility] Last Admin: 09/05/17 21:27 Dose: 15 ml Morphine Sulfate (Morphine Inj (Syringe)*) 2 mg IV Q2H PRN PRN Reason: PAIN - MODERATE Last Admin: 08/31/17 15:02 Dose: 1 mg Ondansetron HCl (Zofran Inj*) 4 mg IV Q6H PRN PRN Reason: NAUSEA Pancrelipase (Zenpep Delayed Cap*) 5,000 units PO TID WITH MEALS [facility] Last Admin: 09/05/17 18:19 Dose: 5,000 units Polyvinyl Alcohol (Polyvinyl Alcohol 1.4% Opth*) 1 drop BOTH EYES DAILY [facility] Last Admin: 09/05/17 10:00 Dose: 1 drop Sodium Chloride (Sodium Chloride 0.65% Nasal [place]*) 2 spray BOTH NARES Q2H PRN PRN Reason: DRY NARES Last Admin: 09/02/17 21:42 Dose: 2 spray Tiotropium [place] (Spiriva Cap.Inh*) 1 cap INH DAILY [facility] Last Admin: 09/05/17 09:06 Dose: 1 cap Tobramycin/Dexamethasone (Tobradex 0.3-0.1%*) 1 drop BOTH EYES Q4H [facility] Last Admin: 09/05/17 18:20 Dose: 1 drp . Vital Signs - 8 hr 09/05/17 09/05/17 09/05/17 15:48 19:34 20:00 Temperature 98.2 F 98.0 F Pulse Rate 88 92 Respiratory 24 24 24 Rate Blood Pressure 152/80 167/74 (mmHg) O2 Sat by Pulse 94 96 Oximetry Oxygen Devices in Use Now: Nasal Cannula Appearance: NAD Eyes: No Scleral Icterus Ears/Nose/Mouth/Throat: NL Teeth, Lips, Gums Neck: NL Appearance and Movements; NL JVP Respiratory: Symmetrical Chest Expansion and Respiratory Effort, - - wearing oxygen Cardiovascular: NL Sounds; No Murmurs; No JVD Abdominal: NL Sounds; No Tenderness; No Distention Lymphatic: No Cervical Adenopathy Extremities: No Edema Skin: No Rash or Ulcers Neurological: Alert and Oriented x 3 Lines/Tubes/Other Access: Clean, Dry and Intact Peripheral IV Nutrition: Taking PO's Result Diagrams: 09/04/17 06:00 09/04/17 06:00 Additional Lab and Data: Laboratory Results - last 24 hr 09/03/17 09/04/17 09/04/17 21:08 06:00 06:00 WBC 6.4 RBC 4.35 Hgb 12.5 Hct 40 MCV 93 MCH 29 MCHC 31 RDW 15 Plt Count 76 L MPV 10.5 H Neut % (Auto) 64.9 Lymph % (Auto) 18.3 L [place] % (Auto) 11.7 H Eos % (Auto) 4.4 Baso % (Auto) 0.7 Absolute Neuts (auto) 4.1 Absolute Lymphs (auto) 1.2 Absolute Monos (auto) 0.7 Absolute Eos (auto) 0.3 Absolute Basos (auto) 0 Absolute Nucleated RBC 0 Nucleated RBC % 0 Sodium 141 Potassium 4.2 Chloride 101 Carbon Dioxide 39 H Anion Gap 1 L BUN 14 Creatinine 0.36 L Est GFR ( Amer) 223.0 Est GFR (Non-Af Amer) 173.4 BUN/Creatinine Ratio 38.9 H Glucose 122 H POC Glucose (mg/dL) 163 H Calcium 8.3 L Magnesium 2.0 Microbiology and Other Data: Microbiology 08/24/17 13:51 Blood Venous Aerobic Blood Culture - Final No Growth Day 5 08/24/17 13:51 Blood Venous Anaerobic Blood Culture - Final No Growth Day 5 08/24/17 22:18 Urine Urine Culture - Final Enterobacter Aerogenes 08/24/17 22:18 Urine Legionella Urinary Antigen - Final Negative Legionella Antigen 08/24/17 22:18 Urine Streptococcus pneumoniae Ag Screen - Final Negative S. pneumo Antigen 08/24/17 19:00 Nasal Influenza Types A,B Antigen (MILLY) - Final Specimen received for Influenza A/B Molecular testing Assess/Plan/Problems-Billing Assessment: Ms. Duenas is an 82 yo F with h/o COPD(on 02 at night) , DM2, pancreatic insufficiency and pseudocyst, s/p cholecystectomy for gallstone pancreatitis presents with SOB noted to have markedly elevated LFT's secondary to cor pulmonale with acute on chronic hypoxic and hypercarbic respiratory failure who is now down to <=3L oxygen by nasal cannula on the medical floor. Patient's strength is improving. . - Patient Problems (1) COPD (chronic obstructive pulmonary disease) Current Visit: Yes Status: Acute Code(s): J44.9 - CHRONIC OBSTRUCTIVE PULMONARY DISEASE, UNSPECIFIED Comment: - Appreciate Pulmonology recommendations and guidance - Encouraged bipap at night for acute on chronic hypercapnic resp failure as per above. - continue oxygen as needed. - Continue albuterol PRN, continue Spiriva. - Appreciate Palliative care consult - input noted. (2) Acute liver failure Current Visit: Yes Status: Acute Priority: High Comment: - Due to passive liver congestion from CHF as per above. - Appreciate Gastroenterology consult. - Hepatic encephalopathy resolved, patient A/O x 3. - Continue Lactulose; NH3 50 on 09/05/2017... - LFTs essentially normal as of 09/03/2017... (3) Cor pulmonale Current Visit: Yes Status: Acute Priority: High Code(s): I27.81 - COR PULMONALE (CHRONIC) Comment: - Continues to improve, now off Bipap. - Appears euvolemic - Not on diuretics but may need small home dose... - Pt had increased pulm pressures and RV overload on Echo with EF 40-45%, due to acute on chronic cor pulmonale in setting of severe COPD. - CTA showed large pleural effusions. (4) DM2 (diabetes mellitus, type 2) Current Visit: Yes Status: Chronic Priority: Medium Comment: - continue lantus 10 units daily. - Continue SSI. - BG well controlled. (5) DVT prophylaxis Current Visit: Yes Status: Acute Priority: High Code(s): FUN5180 - SNOMED Code(s): 809897316 Comment: - HSQ (6) Pancreatic insufficiency Current Visit: Yes Status: Chronic Priority: Medium Code(s): K86.89 - OTHER SPECIFIED DISEASES OF PANCREAS Comment: - On pancrealipase. (7) Respiratory failure Current Visit: Yes Status: Acute Priority: High Code(s): J96.90 - RESPIRATORY FAILURE, UNSP, UNSP W HYPOXIA OR HYPERCAPNIA Comment: - Responded to NIPPV and now down to 3L, or less, O2 by NC. - Mixed hypercarbic and hypoxemic due to history of COPD, acute on chronic cor pulmonale with acute on chronic systolic/diastolic CHF and pleural effusions, and hepatic failure and encephalopathy also due to cor pulmonale and poor forward flow to liver. - Unclear what lead to acute decompensation, question acute viral illness prior to admission? Did get 2L IVF boluses day of admission - Patient was in agreement to trial BiPAP at night as much as tolerated for hypercapnea (8) Dyslipidemia Current Visit: Yes Status: Chronic Priority: Medium Code(s): E78.5 - HYPERLIPIDEMIA, UNSPECIFIED Comment: Welchol stopped-can cause LFT elevation. Recommend not resuming. (9) DNR (do not resuscitate) Current Visit: Yes Status: Acute Priority: High Comment: Status and Disposition: . Inpatient admission. Patient from home and lived independently prior to this admission, Continue PT eval for disposition though pt may refuse subacute rehab.
[2017-09-06] MEDS: Tobramycin/Dexameth OPTH.SUSP* 2.5 M L BTL BOTH EYES SCH ×2 (02:28→06:00)
[2017-09-06] MEDS: Heparin VIAL(*) 5000 UNITS/ML VIAL (FIVE THOUSAND) SUBCUT SCH ×3 (05:59→21:49)
[2017-09-06] MEDS: Tiotropium CAP.INH* CAP.INH/18 MCG (USE ORDER SET !) INH SCH (07:25)
[2017-09-06] MEDS: Insulin REGULAR(*) 1 UNITS UNIT SUBCUT SCH ×4 (08:51→21:49)
[2017-09-06] MEDS: Pancrelipase CAP* 5,000 UNITS CAP PO SCH ×3 (08:54→17:41)
[2017-09-06] MEDS: Artificial Tears* 15 ML BTL BOTH EYES SCH (10:08)
[2017-09-06] MEDS: Lactulose* 15 ML UDC PO SCH ×3 (10:13→21:50)
[2017-09-06] MEDS: Insulin GLARGINE(*) 1 UNITS UNIT SUBCUT SCH (12:12)
--- NOTE | 2017-09-06 14:34 | PN ---
Subjective Date of Service: 09/06/17 Interval History: C/O inability to sleep. Family History: Unchanged from Admission Social History: Unchanged from Admission Past Medical History: Unchanged from Admission Objective Active Medications: Albuterol (Ventolin 2.5 Mg/3 Ml Neb.Wendi*) 2.5 mg INH Q4H PRN PRN Reason: SOB/WHEEZING Device (Tiotropium Inhaler Device*) 1 each .SEE ORDER .USE w/ SPIRIVA CAPS [facility] Dextrose (D50w Syringe 50 Ml*) 12.5 gm IV PUSH .FOR FS < 60 - SS PRN PRN Reason: FS < 60 Heparin Sodium (Porcine) (Heparin Flush Picc/Ml/Cvc(*)) 1 - 3 ml FLUSH 0600, 1800 [facility] PRN Reason: Protocol Last Admin: 09/06/17 05:55 Dose: 2 ml Heparin Sodium (Porcine) (Heparin Vial(*)) 5,000 units SUBCUT Q8HR [facility] Last Admin: 09/06/17 05:59 Dose: 5,000 units Insulin Glargine (Lantus(*)) 10 units SUBCUT Q24H [facility] Last Admin: 09/06/17 12:12 Dose: 10 unit Insulin Human Regular (Insulin Regular(*)) 0 units SUBCUT ACHS [facility] PRN Reason: Protocol Last Admin: 09/06/17 12:12 Dose: 2 units Lactulose (Lactulose*) 15 ml PO TID [facility] Last Admin: 09/06/17 10:13 Dose: 15 ml Morphine Sulfate (Morphine Inj (Syringe)*) 2 mg IV Q2H PRN PRN Reason: PAIN - MODERATE Last Admin: 08/31/17 15:02 Dose: 1 mg Ondansetron HCl (Zofran Inj*) 4 mg IV Q6H PRN PRN Reason: NAUSEA Pancrelipase (Zenpep Delayed Cap*) 5,000 units PO TID WITH MEALS [facility] Last Admin: 09/06/17 12:12 Dose: 5,000 units Polyvinyl Alcohol (Polyvinyl Alcohol 1.4% Opth*) 1 drop BOTH EYES DAILY [facility] Last Admin: 09/06/17 10:08 Dose: Not Given Sodium Chloride (Sodium Chloride 0.65% Nasal [place]*) 2 spray BOTH NARES Q2H PRN PRN Reason: DRY NARES Last Admin: 09/02/17 21:42 Dose: 2 spray Tiotropium [place] (Spiriva Cap.Inh*) 1 cap INH DAILY [facility] Last Admin: 09/06/17 07:25 Dose: 1 cap Vital Signs - 8 hr 09/06/17 09/06/17 09/06/17 07:28 07:52 08:00 Temperature 97.3 F Pulse Rate 80 70 Respiratory 16 24 24 Rate Blood Pressure 141/63 (mmHg) O2 Sat by Pulse 92 94 Oximetry 09/06/17 09/06/17 09/06/17 08:37 11:06 13:57 Temperature 97.9 F 97.9 F Pulse Rate 78 89 Respiratory Rate Blood Pressure 149/71 146/71 (mmHg) O2 Sat by Pulse 95 95 90 Oximetry Oxygen Devices in Use Now: Nasal Cannula Appearance: Alert, partly up in bed. Neutral affect. She was sleeping when I entered her room. Looks comfortable. Neck: NL Appearance and Movements; NL JVP, No Thyroid Enlargement, Masses Respiratory: Symmetrical Chest Expansion and Respiratory Effort, Clear to Auscultation, Clear to Percussion Cardiovascular: NL Sounds; No Murmurs; No JVD, RRR, No Edema Extremities: No Edema, No Clubbing, Cyanosis, - Skin: No Rash or Ulcers, No Nodules or Sclerosis, - Neurological: Alert and Oriented x 3, NL Sensation Result Diagrams: 09/04/17 06:00 09/04/17 06:00 Additional Lab and Data: Laboratory Results - last 24 hr 09/03/17 09/04/17 09/04/17 21:08 06:00 06:00 WBC 6.4 RBC 4.35 Hgb 12.5 Hct 40 MCV 93 MCH 29 MCHC 31 RDW 15 Plt Count 76 L MPV 10.5 H Neut % (Auto) 64.9 Lymph % (Auto) 18.3 L [place] % (Auto) 11.7 H Eos % (Auto) 4.4 Baso % (Auto) 0.7 Absolute Neuts (auto) 4.1 Absolute Lymphs (auto) 1.2 Absolute Monos (auto) 0.7 Absolute Eos (auto) 0.3 Absolute Basos (auto) 0 Absolute Nucleated RBC 0 Nucleated RBC % 0 Sodium 141 Potassium 4.2 Chloride 101 Carbon Dioxide 39 H Anion Gap 1 L BUN 14 Creatinine 0.36 L Est GFR ( Amer) 223.0 Est GFR (Non-Af Amer) 173.4 BUN/Creatinine Ratio 38.9 H Glucose 122 H POC Glucose (mg/dL) 163 H Calcium 8.3 L Magnesium 2.0 Microbiology and Other Data: Microbiology 08/24/17 13:51 Blood Venous Aerobic Blood Culture - Final No Growth Day 5 08/24/17 13:51 Blood Venous Anaerobic Blood Culture - Final No Growth Day 5 08/24/17 22:18 Urine Urine Culture - Final Enterobacter Aerogenes 08/24/17 22:18 Urine Legionella Urinary Antigen - Final Negative Legionella Antigen 08/24/17 22:18 Urine Streptococcus pneumoniae Ag Screen - Final Negative S. pneumo Antigen 08/24/17 19:00 Nasal Influenza Types A,B Antigen (MILLY) - Final Specimen received for Influenza A/B Molecular testing Assess/Plan/Problems-Billing Assessment: Ms. Duenas is an 82 yo F with h/o COPD(on 02 at night) , DM2, pancreatic insufficiency and pseudocyst, s/p cholecystectomy for gallstone pancreatitis presents with SOB noted to have markedly elevated LFT's secondary to cor pulmonale with acute on chronic hypoxic and hypercarbic respiratory failure who is now down to <=3L oxygen by nasal cannula on the medical floor. Patient's strength is improving. . - Patient Problems (1) COPD (chronic obstructive pulmonary disease) Current Visit: Yes Status: Acute Code(s): J44.9 - CHRONIC OBSTRUCTIVE PULMONARY DISEASE, UNSPECIFIED SNOMED Code(s): 22416913 Comment: - Appreciate Pulmonology recommendations and guidance - Encouraged bipap at night for acute on chronic hypercapnic resp failure as per above. Desats with any exertion despite high O2 flow. - Continue albuterol PRN, continue Spiriva. - Appreciate Palliative care consult - input noted. (2) DM2 (diabetes mellitus, type 2) Current Visit: Yes Status: Chronic Priority: Medium Comment: - continue lantus 10 units daily. - Continue SSI. Labile FS likely related to erratic eating. (3) Hypernatremia Current Visit: Yes Status: Acute Code(s): E87.0 - HYPEROSMOLALITY AND HYPERNATREMIA SNOMED Code(s): 69590152 Comment: Resolved. Likely due to dehydration. Status and Disposition: . Inpatient admission. Patient from home and lived independently prior to this admission, Continue PT eval for disposition though pt may refuse subacute rehab.
[2017-09-07] MEDS: Heparin VIAL(*) 5000 UNITS/ML VIAL (FIVE THOUSAND) SUBCUT SCH ×3 (06:26→21:26)
[2017-09-07] MEDS: Tiotropium CAP.INH* CAP.INH/18 MCG (USE ORDER SET !) INH SCH (08:16)
[2017-09-07] MEDS: Insulin REGULAR(*) 1 UNITS UNIT SUBCUT SCH ×4 (08:51→21:26)
[2017-09-07] MEDS: Pancrelipase CAP* 5,000 UNITS CAP PO SCH ×3 (10:11→17:18)
[2017-09-07] MEDS: Lactulose* 15 ML UDC PO SCH ×3 (10:11→21:07)
[2017-09-07] MEDS: Artificial Tears* 15 ML BTL BOTH EYES SCH (10:12)
[2017-09-07] MEDS ORDERED: Insulin GLARGINE(*) 1 UNITS UNIT SUBCUT SCH (10:30)
[2017-09-07] MEDS ORDERED: Insulin LISPRO* 1 UNITS UNIT SUBCUT ONE (12:43)
[2017-09-07] MEDS ORDERED: Dextrose 50% Syringe 50 ML* 25 GM/50 ML SYRINGE IV PUSH PRN (12:43)
--- NOTE | 2017-09-07 16:41 | PN ---
Subjective Date of Service: 09/07/17 Interval History: No new c/o. She thought she did well walking to the end o f the payan today. Little cough. Family History: Unchanged from Admission Social History: Unchanged from Admission Past Medical History: Unchanged from Admission Objective Active Medications: Albuterol (Ventolin 2.5 Mg/3 Ml Neb.Wendi*) 2.5 mg INH Q4H PRN PRN Reason: SOB/WHEEZING Device (Tiotropium Inhaler Device*) 1 each .SEE ORDER .USE w/ SPIRIVA CAPS [facility] Dextrose (D50w Syringe 50 Ml*) 12.5 gm IV PUSH .FOR FS < 60 - SS PRN PRN Reason: FS < 60 Dextrose (D50w Syringe 50 Ml*) 12.5 gm IV PUSH .FOR FS < 60 - SS PRN PRN Reason: FS < 60 Heparin Sodium (Porcine) (Heparin Flush Picc/Ml/Cvc(*)) 1 - 3 ml FLUSH 0600, 1800 [facility] PRN Reason: Protocol Last Admin: 09/07/17 06:26 Dose: Not Given Heparin Sodium (Porcine) (Heparin Vial(*)) 5,000 units SUBCUT Q8HR [facility] Last Admin: 09/07/17 15:30 Dose: 5,000 units Insulin Glargine (Lantus(*)) 12 units SUBCUT Q24H [facility] Last Admin: 09/07/17 12:19 Dose: 12 units Insulin Human Regular (Insulin Regular(*)) 0 units SUBCUT ACHS [facility] PRN Reason: Protocol Last Admin: 09/07/17 12:51 Dose: Not Given Lactulose (Lactulose*) 15 ml PO TID [facility] Last Admin: 09/07/17 15:30 Dose: 15 ml Ondansetron HCl (Zofran Inj*) 4 mg IV Q6H PRN PRN Reason: NAUSEA Pancrelipase (Zenpep Delayed Cap*) 5,000 units PO TID WITH MEALS [facility] Last Admin: 09/07/17 13:10 Dose: 5,000 units Polyvinyl Alcohol (Polyvinyl Alcohol 1.4% Opth*) 1 drop BOTH EYES DAILY [facility] Last Admin: 09/07/17 10:12 Dose: 1 drop Sodium Chloride (Sodium Chloride 0.65% Nasal [place]*) 2 spray BOTH NARES Q2H PRN PRN Reason: DRY NARES Last Admin: 09/02/17 21:42 Dose: 2 spray Tiotropium [place] (Spiriva Cap.Inh*) 1 cap INH DAILY [facility] Last Admin: 09/07/17 08:16 Dose: Not Given Vital Signs - 8 hr 09/07/17 09/07/17 09/07/17 09:00 11:32 12:39 Temperature 98.1 F Pulse Rate 65 83 Respiratory Rate Blood Pressure 162/76 (mmHg) O2 Sat by Pulse 84 94 Oximetry 09/07/17 15:11 Temperature 98 F Pulse Rate 88 Respiratory 16 Rate Blood Pressure 149/92 (mmHg) O2 Sat by Pulse 94 Oximetry Oxygen Devices in Use Now: Nasal Cannula Appearance: Alert, partly up in bed. In good spirits. Looks comfortable. Eyes: No Scleral Icterus Respiratory: Symmetrical Chest Expansion and Respiratory Effort, Clear to Percussion, - - diminished BS BL Extremities: No Edema, No Clubbing, Cyanosis, - Skin: No Rash or Ulcers, No Nodules or Sclerosis, - Neurological: Alert and Oriented x 3, NL Sensation Result Diagrams: 09/04/17 06:00 09/04/17 06:00 Additional Lab and Data: Laboratory Results - last 24 hr 09/03/17 09/04/17 09/04/17 21:08 06:00 06:00 WBC 6.4 RBC 4.35 Hgb 12.5 Hct 40 MCV 93 MCH 29 MCHC 31 RDW 15 Plt Count 76 L MPV 10.5 H Neut % (Auto) 64.9 Lymph % (Auto) 18.3 L [place] % (Auto) 11.7 H Eos % (Auto) 4.4 Baso % (Auto) 0.7 Absolute Neuts (auto) 4.1 Absolute Lymphs (auto) 1.2 Absolute Monos (auto) 0.7 Absolute Eos (auto) 0.3 Absolute Basos (auto) 0 Absolute Nucleated RBC 0 Nucleated RBC % 0 Sodium 141 Potassium 4.2 Chloride 101 Carbon Dioxide 39 H Anion Gap 1 L BUN 14 Creatinine 0.36 L Est GFR ( Amer) 223.0 Est GFR (Non-Af Amer) 173.4 BUN/Creatinine Ratio 38.9 H Glucose 122 H POC Glucose (mg/dL) 163 H Calcium 8.3 L Magnesium 2.0 Microbiology and Other Data: Microbiology 08/24/17 13:51 Blood Venous Aerobic Blood Culture - Final No Growth Day 5 08/24/17 13:51 Blood Venous Anaerobic Blood Culture - Final No Growth Day 5 08/24/17 22:18 Urine Urine Culture - Final Enterobacter Aerogenes 08/24/17 22:18 Urine Legionella Urinary Antigen - Final Negative Legionella Antigen 08/24/17 22:18 Urine Streptococcus pneumoniae Ag Screen - Final Negative S. pneumo Antigen 08/24/17 19:00 Nasal Influenza Types A,B Antigen (MILLY) - Final Specimen received for Influenza A/B Molecular testing Assess/Plan/Problems-Billing Assessment: Ms. Duenas is an 82 yo F with h/o COPD(on 02 at night) , DM2, pancreatic insufficiency and pseudocyst, s/p cholecystectomy for gallstone pancreatitis presents with SOB noted to have markedly elevated LFT's secondary to cor pulmonale with acute on chronic hypoxic and hypercarbic respiratory failure who is now down to <=3L oxygen by nasal cannula on the medical floor. Patient's strength is improving. . - Patient Problems (1) COPD (chronic obstructive pulmonary disease) Current Visit: Yes Status: Acute Code(s): J44.9 - CHRONIC OBSTRUCTIVE PULMONARY DISEASE, UNSPECIFIED SNOMED Code(s): 79711531 Comment: Markedly desaturated again 09/07 walking with O2 8 L/min. - Continue albuterol PRN, continue Spiriva. - Appreciate Palliative care consult - input noted. Patient found to have the capacity to refuse SNF placement. (2) DM2 (diabetes mellitus, type 2) Current Visit: Yes Status: Chronic Priority: Medium Comment: Lantus increased to 12 units daily on 09/07. - Continue SSI. Labile FS likely related to erratic eating. (3) Hypernatremia Current Visit: Yes Status: Acute Code(s): E87.0 - HYPEROSMOLALITY AND HYPERNATREMIA SNOMED Code(s): 61369698 Comment: Resolved. Likely due to dehydration. Status and Disposition: . Inpatient admission. Patient from home and lived independently prior to this admission, Continue PT eval for disposition though pt may refuse subacute rehab.
--- NOTE | 2017-09-07 20:24 | CONS ---
CC: Dr. Pugh * CONSULTATION REPORT: DATE OF CONSULT: 09/07/17 ATTENDING PHYSICIAN: Dr. Elvin Pugh. CONSULTING PROVIDER: JOSÉ ANTONIO Lee SUPERVISING PSYCHIATRIST: Dr. Mat Wiley. REASON FOR CONSULT: Capacity for refusal to assisted facility placement. PSYCHIATRIC HISTORY: The patient is awake and alert. Upon approach, she is sitting upright in medical bed wearing medical gown and watching television. She initially refuses to participate in interview due to watching her favorite program on TV. She agrees to talk with interviewer in between commercial breaks. The patient denies psychiatric history. She denies history of depression or psychiatric treatment. She denies a history of treatment for mental health. She states that she is hospitalized due to pancreas, lung, and liver problems. She identifies that she was being monitored by the ICU before transported to the fourth floor. The patient is refusing to be transferred to assisted facility and Medicine consulted Psychiatry to assess whether she has capacity to make decisions about medical care. Throughout the interview , the patient is interactive and pleasant. She smiles often and is jovial, sometimes sarcastic. She continues to assert that she wants to return home and that she is able to care for herself. She is vehemently opposed to going to a assisted facility even as a temporary measure. MENTAL STATUS EXAM: The patient is an 82-year-old white female, who appears stated age. She is sitting up in hospital bed watching television. She is adequately groomed. Has good eye contact, was initially guarded, but cooperative when interviewer agreed not to interrupt her television program. She is alert and oriented. Her memory is 3/3. Her fund of knowledge is excellent. Her vocabulary is excellent. Mini Mental Status Exam, the patient scored 26/30, deficit was simply because she politely refused to copy a drawing and she misunderstood the instructions first. However, she was able to count backwards by 10s starting with 97. She missed one point for not remembering the third item for immediate memory. Her speech was articulate, normal rate and rhythm. Her mood is euthymic, slightly irritable in regards to topic of fpc placement. Thought process is linear and goal directed. Thought content is negative for delusions, depersonalization. Denies suicidality, homicidality. There are no apparent perceptual disturbances. Her insight is fair, her judgment is poor in that she does not agree to medical recommendations. ASSESSMENT AND PLAN: Capacity: The patient currently has capacity to make informed medical decisions. I have notified the attending physician of her current mental status. Thank you for allowing Psychiatry to meet with this charming and pleasant woman. GIOVANI CASAS, YOHANA [id number]/[facility] #: [id number] JORDAN
[2017-09-08] MEDS: Tiotropium CAP.INH* CAP.INH/18 MCG (USE ORDER SET !) INH SCH (07:12)
[2017-09-08] MEDS: Heparin VIAL(*) 5000 UNITS/ML VIAL (FIVE THOUSAND) SUBCUT SCH (07:29)
[2017-09-08 08:10] VITALS: BP 166/72
[2017-09-08] MEDS ORDERED: metFORMIN* 850 MG TAB PO ONE (08:18)
[2017-09-08] MEDS ORDERED: Insulin GLARGINE(*) 1 UNITS UNIT SUBCUT SCH (08:20)
[2017-09-08] MEDS: Insulin REGULAR(*) 1 UNITS UNIT SUBCUT SCH ×2 (08:33→13:41)
--- NOTE | 2017-09-08 08:34 | PN ---
Progress Note - Progress Note Date of Service: 09/08/17 Note: Time spent on discharge 40 minutes.
[2017-09-08] MEDS: Lactulose* 15 ML UDC PO SCH (09:19)
[2017-09-08] MEDS: Pancrelipase CAP* 5,000 UNITS CAP PO SCH ×2 (09:20→13:41)
[2017-09-08] MEDS: Artificial Tears* 15 ML BTL BOTH EYES SCH (09:20)
--- NOTE | 2017-09-09 00:33 | DS ---
CC: Dr. Urena * DISCHARGE SUMMARY: DATE OF ADMISSION: 08/24/17 DATE OF DISCHARGE: 09/08/17 HOSPITAL COURSE: This 82-year-old woman presented with shortness of breath and hypoglycemia. At home, her blood sugar was 585, in the ambulance this was 446. She has a long history of severe COPD. She was on azithromycin as an outpatient. She said she has had more troubles breathing off and on since April 2017. The patient was given intravenous antibiotics. She was given insulin as needed to control her blood sugar and metformin was withheld during this hospital stay. Blood cultures were unremarkable. Influenza test was negative. She stabilized, she was found to hyperammonemia as well as hypernatremia. She was treated with lactulose and her ammonia level came down to 50. The highest value of ammonia here was 103. Her sodium was 150 and came down to 141. I think she is hydrating herself adequately. She is probably at her baseline. At rest, she is fairly comfortable. With minimal exertion, even with 8 L of oxygen, she desaturates quite significantly, although she seems to feel that she is doing fairly well walking short distances in the payan. The staff felt that the patient was quite impaired from a respiratory point of view and would be difficult for her to manage at home. However, the patient was adamant that she go home, she has some live-in help, an elderly woman who helps her. Her son can help sometime. She has an aide come in 2 times a week. I told her that she probably needed more help at home. She was seen by Dr. Capone for Palliative Care and felt to be hospice eligible. The patient was very definite about not wanting hospice services. I note she is a DNR. She was seen by psychiatry service to make sure she had capacity to decline shelter placement, which we felt was probably her safest option. She was felt to have that capacity. FINAL DIAGNOSES: 1. Chronic obstructive pulmonary disease. 2. Diabetes. 3. Hypernatremia. 4. Hyperammonemia. DISCHARGE MEDICATIONS: 1. Glargine insulin 16 units daily at noon. 2. Lactulose 15 mL t.i.d. 3. Spiriva 1 capsule daily. 4. Welchol 625 mg b.i.d. 5. Metformin extended release 750 mg b.i.d. 6. Pancrelipase 6000 units t.i.d. with meals. 7. Systane eye drops both eyes daily. 8. Vitamin B12 500 mcg daily. 9. Cinnamon bark 500 mg daily. 10. Metoclopramide 5 mg t.i.d. with meals. [id number]/[facility] #: [id number] [facility]
== END 2017-09-08 14:05 | disposition home health service (06) | DRG 441 ==
LOC: ED 10:58 → ICU 13:08 → MED 08-31 10:52
PROVIDERS: ADMIT Internal Medicine; ATTEND Internal Medicine
PROC: 02HV33Z Insertion of Infusion Device into Superior Vena Cava, Percutaneous Approach (ICD-10-PCS; principal; 2017-08-25)
PROC: 5A09357 Assistance with Respiratory Ventilation, Less than 24 Consecutive Hours, Continuous Positive Airway Pressure (ICD-10-PCS; 2017-08-25)
DX: K72.00 Acute and subacute hepatic failure without coma (principal); J96.21 Acute and chronic respiratory failure with hypoxia; G93.41 Metabolic encephalopathy; I50.43 Acute on chronic combined systolic (congestive) and diastolic (congestive) heart failure; J96.22 Acute and chronic respiratory failure with hypercapnia; E87.2 Acidosis; N17.9 Acute kidney failure, unspecified; D68.9 Coagulation defect, unspecified; E87.0 Hyperosmolality and hypernatremia; I27.81 Cor pulmonale (chronic); M81.0 Age-related osteoporosis without current pathological fracture; E86.0 Dehydration; M19.90 Unspecified osteoarthritis, unspecified site; E78.5 Hyperlipidemia, unspecified; J43.9 Emphysema, unspecified; I27.20 Pulmonary hypertension, unspecified; K21.9 Gastro-esophageal reflux disease without esophagitis; I50.810 Right heart failure, unspecified; E11.65 Type 2 diabetes mellitus with hyperglycemia; K86.89 Other specified diseases of pancreas; Z88.1 Allergy status to other antibiotic agents; Z88.8 Allergy status to other drugs, medicaments and biological substances; Z85.3 Personal history of malignant neoplasm of breast; Z90.12 Acquired absence of left breast and nipple; Z90.49 Acquired absence of other specified parts of digestive tract; Z79.4 Long term (current) use of insulin; Z82.49 Family history of ischemic heart disease and other diseases of the circulatory system; Z87.891 Personal history of nicotine dependence; Z99.81 Dependence on supplemental oxygen; Z66 Do not resuscitate; D69.6 Thrombocytopenia, unspecified
CPT/HCPCS: 36415; 36600; 71045; 71275; 74018; 74178; 80048; 80053; 80074; 80076; 80329; 81003; 81015; 82140; 82803; 82947; 83605; 83690; 83735; 83880; 84100; 84443; 84484; 85025; 85060; 85610; 86140; 87040; 87077; 87086; 87186; 87502; 87899; 93005; 93306; 94640; 94660; 94760; 99285; A9270-GY; C1751; G0480; G8978-GP-CK; G8978-GP-CL; G8979-GP-CH; G8979-GP-CI; G8981-GP-CJ; G8981-GP-CK; G8982-GP-CH; G8987-GO-CK; G8988-GO-CI; G8989-GO-CI; J1120; J1644; J1650; J1940; J2270; J3370; J3475; Q9967

== ENCOUNTER 2017-09-11 00:55 | Inpatient (IN) | payer MEDICARE ==
[2017-09-11] MEDS ORDERED: Piperacillin/Tazobac ADVAN(*) 3.375 GM in NS 0.9% 100 ML* 100 ML IVPB ONE (01:09)
[2017-09-11] MEDS ORDERED: Albuterol/Ipratropium NEB.SOL* Albuterol 2.5 MG/Ipratropium 0.5 MG 3 ML INH ONE (01:10)
[2017-09-11] MEDS ORDERED: Albuterol 2.5 MG/3 ML NEB.SOL* (0.083%) INH PRN ×2 (01:10→02:41)
[2017-09-11] MEDS ORDERED: Furosemide IV* 10 MG/ML VIAL (40 MG) IV SLOW PU ONE (01:20)
[2017-09-11] MEDS ORDERED: Piperacillin/Tazobac (*) 3.375 GM BAG ONE (01:24)
[2017-09-11 01:36] LABS: EGFR Non-African American 124.4 (>60)
[2017-09-11 01:38] LABS: INR 0.82 (0.77-1.02)
[2017-09-11 01:39] LABS: Hematocrit 41 % (35-47); Hemoglobin 12.9 g/dl (12.0-16.0); Mean Corpuscular HGB Conc 32 g/dl (31-36); Mean Corpuscular Hemoglobin 29 pg (27-31); Mean Corpuscular Volume 93 fL (80-97); Mean Platelet Volume 9.8 um3 (7.4-10.4); Platelet Count 247 10^3/ul (150-450); Red Blood Count 4.38 10^6/ul (4.0-5.4); Red Cell Distribution Width 16 % (10.5-15); White Blood Count 10.4 10^3/ul (3.5-10.8)
[2017-09-11 01:40] LABS: ABS Basophils 0 10^3/ul (0-0.2); ABS Eosinophils 0.1 10^3/ul (0-0.6); ABS Lymphocytes 2.4 10^3/ul (1.0-4.8); ABS Monocytes 1.4 10^3/ul (0-0.8); ABS Neutrophils 6.4 10^3/ul (1.5-7.7)
[2017-09-11] MEDS ORDERED: methylPREDNISolone 125 MG* 2 ML VIAL IV ONE (01:51)
[2017-09-11] MEDS ORDERED: Magnesium Sulfate 2 GM IV* 2 GM/50 ML BAG IVPB ONE (01:51)
[2017-09-11] MEDS ORDERED: Zosyn per Pharmacy* NOTE FOLLOW UP SCH ×2 (02:00→03:00)
[2017-09-11 02:02] LABS: ABS Nucleated RBC 0 10^3/ul; Eosinophil % 0.8 % (0-6); Lymphocyte % 23.5 % (25-47); Nucleated Red Blood Cells % 0.1
[2017-09-11 02:28] LABS: Urine Appearance Cloudy; Urine Blood 2+ (Negative); Urine Color Yellow; Urine Ketones Negative (Negative); Urine Protein 1+(30 mg/dL) (Negative); Urine Urobilinogen Negative (Negative)
[2017-09-11] MEDS ORDERED: Ondansetron INJ* 2 MG/ML VIAL IV PRN (02:37)
[2017-09-11] MEDS ORDERED: Albuterol/Ipratropium NEB.SOL* Albuterol 2.5 MG/Ipratropium 0.5 MG 3 ML INH PRN (02:41)
[2017-09-11] MEDS ORDERED: Spiriva Inhaler DEVICE* 1 EACH DEVICE INH SCH (03:00)
--- NOTE | 2017-09-11 03:51 | ED ---
Jaya Ragland Julia, scribed for Lit Sprague MD on 09/11/17 at 0106 . Shortness of Breath - HPI Summary HPI Summary: This patient is a 82 year old F BIBA to [facility] due to SOB and nausea. EMS reports pt uses 2L of nasal cannula O2 at home. SaO2 was 82% in ambulance and put on 4L. Pt lives at home with daughter. HPI is limited. Pt is obtunded. - History of Current Complaint Chief Complaint: EDShortnessOfBreath Time Seen by Provider: 09/11/17 00:59 Hx Obtained From: EMS Hx From Patient Unobtainable Due To: Altered Mental Status Timing: Constant - Allergy/Home Medications Allergies/Adverse Reactions: Allergies Allergy/AdvReac Type Severity Reaction Status Date / Time clarithromycin Allergy Unknown Verified 08/24/17 13:17 Reaction Details levofloxacin Allergy Unknown Verified 08/24/17 13:17 Reaction Details tetracycline Allergy Unknown Verified 08/24/17 13:17 Reaction Details Tetracyclines Allergy Unknown Verified 08/24/17 13:17 Reaction Details PMH/Surg Hx/FS Hx/Imm Hx Endocrine/Hematology History: Reports: Hx Diabetes - DM II Denies: Hx Thyroid Disease Cardiovascular History: Denies: Hx Congestive Heart Failure Respiratory History: Reports: Hx Chronic Obstructive Pulmonary Disease (COPD) Denies: Hx Pneumonia, Hx Sleep Apnea GI History: Reports: Hx Gall Bladder Disease, Other GI Disorders - pancreatitis History: Denies: Hx Renal Disease Musculoskeletal History: Reports: Hx Arthritis, Hx Back Problems - Recent fx Denies: Other Musculoskeletal History Sensory History: Reports: Hx Contacts or Glasses Denies: Hx Hearing Aid, Other Sensory Impairments Opthamlomology History: Reports: Hx Contacts or Glasses Denies: Other Sensory Impairments Neurological History: Denies: Hx Migraine - Cancer History Cancer Type, Location and Year: BREAST CA - Surgical History Surgery Procedure, Year, and Place: LEFT MASTECTOMY. cholecystectomy, 2006 Hx Anesthesia Reactions: No - Immunization History Date of Tetanus Vaccine: thinks UTD Date of Influenza Vaccine: NEVER Infectious Disease History: No Infectious Disease History: Denies: Traveled Outside the [place] in Last 30 Days - Family History Known Family History: Positive: Unknown - FHx unattainable due to AMS - Social History Alcohol Use: Rare Substance Use Type: Reports: None Smoking Status (MU): Unknown if Ever Smoked Review of Systems Positive: Shortness Of Breath Positive: Nausea All Other Systems Reviewed And Are Negative: No - Comments Additional Review of Systems Comments: ROS is limited due to altered mental status. Physical Exam - Summary Physical Exam Summary: VITAL SIGNS: Reviewed. HEAD AND FACE: No signs of trauma. No ecchymosis, hematomas or skull depressions. No sinus tenderness. EYES: PERRLA, EOMI x 2, No injected conjunctiva, no nystagmus. EARS: Hearing grossly intact. Ear canals and tympanic membranes are within normal limits. MOUTH: Oropharynx within normal limits. NECK: Supple, trachea is midline, no adenopathy, no JVD, no carotid bruit, no c- spine tenderness, neck with full ROM. CHEST: Symmetric, no tenderness at palpation LUNGS: Rales bilaterally. Decreased breath sounds bilaterally. Tachypnic. CVS: Regular rhythm, tachycardic rate. S1 and S2 present, no murmurs or gallops appreciated. ABDOMEN: Soft, non-tender. No signs of distention. No rebound no guarding, and no masses palpated. Bowel sounds are normal. EXTREMITIES: FROM in all major joints, no edema, no cyanosis or clubbing. NEURO: Pt is responsive to verbal stimuli by opening eye. Pt does not follow commands. Neuro exam limited due to pts condition. SKIN: Dry and warm GENERAL: Patient is a well-developed and nourished female who is in acute respiratory distress.Pt is lethargic Triage Information Reviewed: Yes Vital Signs On Initial Exam: Initial Vitals Temp Pulse Resp BP Pulse Ox 97.1 F 118 31 169/92 96 09/11/17 00:56 09/11/17 00:56 09/11/17 00:56 09/11/17 00:56 09/11/17 00:56 Vital Signs Reviewed: Yes Diagnostics - Vital Signs Vital Signs Temp Pulse Resp BP Pulse Ox 09/11/17 00:56 97.1 F 118 31 169/92 96 - Laboratory Lab Results: Lab Results 09/11/17 09/11/17 09/11/17 Range/Units 01:13 01:13 01:13 WBC 10.4 (3.5-10.8) 10^3/ul RBC 4.38 (4.0-5.4) 10^6/ul Hgb 12.9 (12.0-16.0) g/dl Hct 41 (35-47) % MCV 93 (80-97) fL MCH 29 (27-31) pg MCHC 32 (31-36) g/dl RDW 16 H (10.5-15) % Plt Count 247 (150-450) 10^3/ul MPV 9.8 (7.4-10.4) um3 Neut % (Auto) 62.0 (38-83) % Lymph % (Auto) 23.5 L (25-47) % Waller % (Auto) 13.3 H (0-7) % Eos % (Auto) 0.8 (0-6) % Baso % (Auto) 0.4 (0-2) % Absolute Neuts (auto) 6.4 (1.5-7.7) 10^3/ul Absolute Lymphs (auto) 2.4 (1.0-4.8) 10^3/ul Absolute Monos (auto) 1.4 H (0-0.8) 10^3/ul Absolute Eos (auto) 0.1 (0-0.6) 10^3/ul Absolute Basos (auto) 0 (0-0.2) 10^3/ul Absolute Nucleated RBC 0 10^3/ul Nucleated RBC % 0.1 INR (Anticoag Therapy) 0.82 (0.77-1.02) APTT 33.8 (26.0-36.3) seconds Patient Temperature ABG pH (7.35-7.45) ABG pH (Temp Correct) ABG pCO2 (35-45) mmHg ABG pCO2 (Temp Corrct ABG pO2 (80-100) mmHg ABG pO2 (Temp Correct ABG HCO3 ABG O2 Saturation (95-98) % ABG Base Excess Respiration Rate O2 Delivery Device Ventilator Type Vent Mode FiO2 Inspiratory Time PEEP Pressure Support Pressure Control EPAP IPAP BiPAP Sodium 142 (139-145) mmol/L Potassium 5.1 H (3.5-5.0) mmol/L Chloride 97 L (101-111) mmol/L Carbon Dioxide 41 H* (22-32) mmol/L Anion Gap 4 (2-11) mmol/L BUN 14 (6-24) mg/dL Creatinine 0.48 L (0.51-0.95) mg/dL Est GFR ( Amer) 160.0 (>60) Est GFR (Non-Af Amer) 124.4 (>60) BUN/Creatinine Ratio 29.2 H (8-20) Glucose 252 H (70-100) mg/dL Lactic Acid (0.5-2.0) mmol/L Calcium 9.1 (8.6-10.3) mg/dL Total Bilirubin 0.50 (0.2-1.0) mg/dL AST 38 (13-39) U/L ALT 62 H (7-52) U/L Alkaline Phosphatase 111 H (34-104) U/L Total Creatine Kinase 27 (10-223) U/L Troponin I 0.04 H* (<0.04) ng/mL C-Reactive Protein 13.66 H (< 5.00) mg/L B-Natriuretic Peptide ( - 100) pg/mL Total Protein 6.5 (6.4-8.9) g/dL Albumin 3.5 (3.2-5.2) g/dL Globulin 3.0 (2-4) g/dL Albumin/Globulin Ratio 1.2 (1-3) Urine Color Urine Appearance Urine pH (5-9) Ur Specific [place] (1.010-1.030) Urine Protein (Negative) Urine Ketones (Negative) Urine Blood (Negative) Urine Nitrate (Negative) Urine Bilirubin (Negative) Urine Urobilinogen (Negative) Ur Leukocyte Esterase (Negative) Urine WBC (Auto) (Absent) Urine RBC (Auto) (Absent) Urine Bacteria (Absent) Urine Glucose (Negative) Influenza A (Rapid) (Negative) Influenza B (Rapid) (Negative) 09/11/17 09/11/17 09/11/17 Range/Units 01:13 01:13 01:25 WBC (3.5-10.8) 10^3/ul RBC (4.0-5.4) 10^6/ul Hgb (12.0-16.0) g/dl Hct (35-47) % MCV (80-97) fL MCH (27-31) pg MCHC (31-36) g/dl RDW (10.5-15) % Plt Count (150-450) 10^3/ul MPV (7.4-10.4) um3 Neut % (Auto) (38-83) % Lymph % (Auto) (25-47) % Waller % (Auto) (0-7) % Eos % (Auto) (0-6) % Baso % (Auto) (0-2) % Absolute Neuts (auto) (1.5-7.7) 10^3/ul Absolute Lymphs (auto) (1.0-4.8) 10^3/ul Absolute Monos (auto) (0-0.8) 10^3/ul Absolute Eos (auto) (0-0.6) 10^3/ul Absolute Basos (auto) (0-0.2) 10^3/ul Absolute Nucleated RBC 10^3/ul Nucleated RBC % INR (Anticoag Therapy) (0.77-1.02) APTT (26.0-36.3) seconds Patient Temperature Not Reportable ABG pH 7.11 L* (7.35-7.45) ABG pH (Temp Correct) Not Reportable ABG pCO2 > 125 H* (35-45) mmHg ABG pCO2 (Temp Corrct Not Reportable ABG pO2 130 H (80-100) mmHg ABG pO2 (Temp Correct Not Reportable ABG HCO3 TNP ABG O2 Saturation 99.4 H (95-98) % ABG Base Excess TNP Respiration Rate Not Reportable O2 Delivery Device Nrb Ventilator Type Not Reportable Vent Mode Not Reportable FiO2 2 Inspiratory Time Not Reportable PEEP Not Reportable Pressure Support Not Reportable Pressure Control Not Reportable EPAP Not Reportable IPAP Not Reportable BiPAP Not Reportable Sodium (139-145) mmol/L Potassium (3.5-5.0) mmol/L Chloride (101-111) mmol/L Carbon Dioxide (22-32) mmol/L Anion Gap (2-11) mmol/L BUN (6-24) mg/dL Creatinine (0.51-0.95) mg/dL Est GFR ( Amer) (>60) Est GFR (Non-Af Amer) (>60) BUN/Creatinine Ratio (8-20) Glucose (70-100) mg/dL Lactic Acid 1.1 (0.5-2.0) mmol/L Calcium (8.6-10.3) mg/dL Total Bilirubin (0.2-1.0) mg/dL AST (13-39) U/L ALT (7-52) U/L Alkaline Phosphatase (34-104) U/L Total Creatine Kinase (10-223) U/L Troponin I (<0.04) ng/mL C-Reactive Protein (< 5.00) mg/L B-Natriuretic Peptide 576 H ( - 100) pg/mL Total Protein (6.4-8.9) g/dL Albumin (3.2-5.2) g/dL Globulin (2-4) g/dL Albumin/Globulin Ratio (1-3) Urine Color Urine Appearance Urine pH (5-9) Ur Specific [place] (1.010-1.030) Urine Protein (Negative) Urine Ketones (Negative) Urine Blood (Negative) Urine Nitrate (Negative) Urine Bilirubin (Negative) Urine Urobilinogen (Negative) Ur Leukocyte Esterase (Negative) Urine WBC (Auto) (Absent) Urine RBC (Auto) (Absent) Urine Bacteria (Absent) Urine Glucose (Negative) Influenza A (Rapid) (Negative) Influenza B (Rapid) (Negative) 09/11/17 09/11/17 Range/Units 01:48 02:03 WBC (3.5-10.8) 10^3/ul RBC (4.0-5.4) 10^6/ul Hgb (12.0-16.0) g/dl Hct (35-47) % MCV (80-97) fL MCH (27-31) pg MCHC (31-36) g/dl RDW (10.5-15) % Plt Count (150-450) 10^3/ul MPV (7.4-10.4) um3 Neut % (Auto) (38-83) % Lymph % (Auto) (25-47) % Waller % (Auto) (0-7) % Eos % (Auto) (0-6) % Baso % (Auto) (0-2) % Absolute Neuts (auto) (1.5-7.7) 10^3/ul Absolute Lymphs (auto) (1.0-4.8) 10^3/ul Absolute Monos (auto) (0-0.8) 10^3/ul Absolute Eos (auto) (0-0.6) 10^3/ul Absolute Basos (auto) (0-0.2) 10^3/ul Absolute Nucleated RBC 10^3/ul Nucleated RBC % INR (Anticoag Therapy) (0.77-1.02) APTT (26.0-36.3) seconds Patient Temperature ABG pH (7.35-7.45) ABG pH (Temp Correct) ABG pCO2 (35-45) mmHg ABG pCO2 (Temp Corrct ABG pO2 (80-100) mmHg ABG pO2 (Temp Correct ABG HCO3 ABG O2 Saturation (95-98) % ABG Base Excess Respiration Rate O2 Delivery Device Ventilator Type Vent Mode FiO2 Inspiratory Time PEEP Pressure Support Pressure Control EPAP IPAP BiPAP Sodium (139-145) mmol/L Potassium (3.5-5.0) mmol/L Chloride (101-111) mmol/L Carbon Dioxide (22-32) mmol/L Anion Gap (2-11) mmol/L BUN (6-24) mg/dL Creatinine (0.51-0.95) mg/dL Est GFR ( Amer) (>60) Est GFR (Non-Af Amer) (>60) BUN/Creatinine Ratio (8-20) Glucose (70-100) mg/dL Lactic Acid (0.5-2.0) mmol/L Calcium (8.6-10.3) mg/dL Total Bilirubin (0.2-1.0) mg/dL AST (13-39) U/L ALT (7-52) U/L Alkaline Phosphatase (34-104) U/L Total Creatine Kinase (10-223) U/L Troponin I (<0.04) ng/mL C-Reactive Protein (< 5.00) mg/L B-Natriuretic Peptide ( - 100) pg/mL Total Protein (6.4-8.9) g/dL Albumin (3.2-5.2) g/dL Globulin (2-4) g/dL Albumin/Globulin Ratio (1-3) Urine Color Yellow Urine Appearance Cloudy Urine pH 5.0 (5-9) Ur Specific [place] 1.010 (1.010-1.030) Urine Protein 1+(30 mg/dl) A (Negative) Urine Ketones Negative (Negative) Urine Blood 2+ A (Negative) Urine Nitrate Positive A (Negative) Urine Bilirubin Negative (Negative) Urine Urobilinogen Negative (Negative) Ur Leukocyte Esterase 3+ A (Negative) Urine WBC (Auto) 3+(>20/hpf) A (Absent) Urine RBC (Auto) 3+(>10/hpf) A (Absent) Urine Bacteria 1+ A (Absent) Urine Glucose 3+(>=500 mg/dl) A (Negative) Influenza A (Rapid) Negative (Negative) Influenza B (Rapid) Negative (Negative) Result Diagrams: 09/11/17 01:13 09/11/17 01:13 Lab Statement: Any lab studies that have been ordered have been reviewed, and results considered in the medical decision making process. - Radiology CXR Radiology Interpretation Completed By: ED Physician - Bilateral interstital infiltrates. R upper lobe infiltrate indicating CHF and PNA. Awaiting offical report. - EKG 0055 Cardiac Rate: Tachycardia - at 116 BPM EKG Rhythm: Sinus Tachycardia EKG Interpretation: LBBB which is old Course/Dx - Course Course Of Treatment: Pt is brought in due to SOB and nausea. Pt is responsive to verbal stimuli by opening eyes but does not follow commands. Pt is lethargic. CXR has bilaterl infiltrates and is indicative of CHF and PNA of the right upper lobe. ABG reveals a pH of 7.11 and and elevated CO2. Bloodwork reveals elevated CO2 and a troponin of 0.04. Pt given Zosyn Bag, Solu-Medrol, Lasix, and nebulizer tx. Pt did not recieve IV fluids according to sepsis protocol because pt has CHF. Dr. Eaton agrees to admit pt. - Diagnoses Provider Diagnoses: Acute respiratory failure, COPD (chronic obstructive pulmonary disease), CHF ( congestive heart failure), PNA (pneumonia) - Physician Notifications Discussed Care of Patient With: Sherry Eaton - hospitalist Time Discussed With Above Provider: 02:25 Instructed by Provider To: Admit As Inpatient - Critical Care Time Critical Care Time: 30-74 min - 40 minutes Discharge - Sign-Out/Discharge Documenting (check all that apply): Discharge - admit - Discharge Plan Condition: Critical Disposition: ADMITTED TO [facility] documentation as recorded by the Jaya torre Julia accurately reflects the service I personally performed and the decisions made by me, Lit Sprague MD.
[2017-09-11] MEDS ORDERED: Artificial Tears* 15 ML BTL BOTH EYES PRN (04:17)
[2017-09-11] MEDS: Insulin REGULAR(*) 1 UNITS UNIT SUBCUT SCH ×3 (04:28→11:57)
[2017-09-11] MEDS: Lactulose 300 ML for PR* 10 GM/15 ML BTL PR SCH ×2 (05:32→11:09)
[2017-09-11 05:41] LABS: ABS Basophils 0 10^3/ul (0-0.2); ABS Eosinophils 0 10^3/ul (0-0.6); ABS Lymphocytes 0.4 10^3/ul (1.0-4.8); ABS Monocytes 0.5 10^3/ul (0-0.8); ABS Neutrophils 10.4 10^3/ul (1.5-7.7); ABS Nucleated RBC 0 10^3/ul; Eosinophil % 0 % (0-6); Hematocrit 41 % (35-47); Hemoglobin 12.5 g/dl (12.0-16.0); Lymphocyte % 3.7 % (25-47); Mean Corpuscular HGB Conc 31 g/dl (31-36); Mean Corpuscular Hemoglobin 29 pg (27-31); Mean Corpuscular Volume 94 fL (80-97); Mean Platelet Volume 9.8 um3 (7.4-10.4); Nucleated Red Blood Cells % 0; Platelet Count 211 10^3/ul (150-450); Red Blood Count 4.32 10^6/ul (4.0-5.4); Red Cell Distribution Width 16 % (10.5-15); White Blood Count 11.4 10^3/ul (3.5-10.8)
[2017-09-11 05:53] LABS: EGFR Non-African American 113.5 (>60)
[2017-09-11] MEDS ORDERED: Heparin VIAL(*) 5000 UNITS/ML VIAL (FIVE THOUSAND) SUBCUT SCH (06:00)
[2017-09-11] MEDS ORDERED: Piperacillin/Tazobactam 13.5 GM IV 24 hour continuous infusion IVPB SCH ×2 (06:00)
--- NOTE | 2017-09-11 06:30 | PN ---
Progress Note - Progress Note Date of Service: 09/11/17 Note: Was able to get in touch with [place] her only son. Her HCP Henry is . He confirmed she is a DNI/DNR. I spoke about my concern for a poor prognosis. he is planning to come in this morning.
--- NOTE | 2017-09-11 07:52 | RAD ---
HISTORY: Altered mental status COMPARISONS: January 02, 2008 TECHNIQUE: Multiple contiguous axial CT scans were obtained of the head without intravenous contrast. FINDINGS: HEMORRHAGE/INFARCT: There is no hemorrhage or acute infarct. MASSES/SHIFT: There is no mass or shift. EXTRA-AXIAL SPACES: There are no extra-axial fluid collections. SULCI AND VENTRICLES: The sulci and ventricles are normal in size and position for the patient's stated age. CEREBRUM: There are no focal parenchymal abnormalities. BRAINSTEM: There are no focal parenchymal abnormalities. CEREBELLUM: There are no focal parenchymal abnormalities. VESSELS: The vessels are grossly normal. PARANASAL SINUSES: The paranasal sinuses are clear. ORBITS: The orbits are unremarkable. BONES AND SOFT TISSUE: No bone or soft tissue abnormalities are noted. OTHER: None IMPRESSION: NO ACUTE INTRACRANIAL PATHOLOGY.
[2017-09-11] MEDS ORDERED: methylPREDNISolone SOD 40 MG* 1 ML VIAL IV SCH (09:00)
[2017-09-11] MEDS ORDERED: Tiotropium CAP.INH* CAP.INH/18 MCG (USE ORDER SET !) INH SCH (09:00)
[2017-09-11] MEDS ORDERED: Spiriva Inhaler DEVICE* 1 EACH DEVICE INH ONE (09:00)
--- NOTE | 2017-09-11 09:28 | HP ---
CC: Jaskaran Urena MD * HISTORY AND PHYSICAL: DATE OF ADMISSION: 09/11/17 TIME OF EVALUATION: 0200. PRIMARY CARE PHYSICIAN: Jaskaran Urena MD CHIEF COMPLAINT: Respiratory distress. HISTORY OF PRESENT ILLNESS: This is an 82-year-old female who just recently had a prolonged hospitalization from 08/24/17 through 09/08/17 for hyperammonemia with encephalopathy, respiratory failure, who presents to the emergency room via EMS for respiratory distress. Patient was somnolent, found to be hypercapnic and was quickly placed on BiPAP. On my encounter, patient is barely able to open her eyes and follow any commands. Per the ER staff, she was not able to really articulate any history. It appears that she was staying with her daughter and they called EMS. She has been short of breath for the past week. Patient had a prolonged hospitalization for her end-stage COPD. She also had hyperammonemia with hypernatremia and issues with hypoglycemia. Patient was placed in the ICU, requiring BiPAP. She had palliative care consultation, Dr. Capone, who states that she was eligible for hospice. She was not interested in hospice at that time. They felt that she needed rehab. She declined rehab. She was deemed to have capacity by Psychiatry and was discharged home. Otherwise, unable to obtain a review of systems. In the emergency room, patient had labs, imaging. She was given Zosyn, Solu-Medrol, Lasix 40 mg, DuoNeb and referred to the hospitalist service for further evaluation. PAST MEDICAL HISTORY: 1. Severe COPD, unclear if she is on oxygen at home. 2. Diabetes. 3. Osteoporosis. 4. Hyperlipidemia. 5. History of gallstone pancreatitis. 6. History of breast cancer, status post mastectomy 40 years ago. 7. History of cholecystectomy. 8. History of pancreatic insufficiency. 9. Recent prolonged admission for respiratory failure and hyperammonemia. MEDICATIONS: Per discharge summary, her medications are: 1. Lantus 16 units daily at noon. 2. Lactulose 15 mL t.i.d. 3. Spiriva 1 capsule daily. 4. WelChol 625 mg p.o. b.i.d. 5. Metformin 750 mg p.o. b.i.d. 6. Pancrelipase 6000 units t.i.d. with meals. 7. Systane eye drops 4 times daily. 8. Vitamin B12 500 mg daily. 9. Cinnamon bark 500 mg daily. 10. Metoclopramide 5 mg t.i.d. ALLERGIES: CLARITHROMYCIN, LEVOFLOXACIN, TETRACYCLINE. FAMILY HISTORY: Unable to obtain. SOCIAL HISTORY: Per ER, patient lives with her daughter. I do not have a contact information. I did attempt to call the healthcare proxy based on the documentation here, her son, Henry Duenas [phone], but there is no answer there. Per her MOLST form on her prior admission, she is a DNR/DNI. She is a remote smoker and no alcohol use. REVIEW OF SYSTEMS: Unable to obtain. PHYSICAL EXAMINATION GENERAL: Frail, somnolent, elderly lady. VITAL SIGNS: Temp is 97.1, pulse rate is 101, respiratory rate is 22, oxygen saturation 96% on BiPAP, and blood pressure 143/82. HEENT: Head: Normocephalic. Eyes: Pupils equal and reactive, sluggish and conjunctivae anicteric. Oropharynx: Mucous membranes dry. NECK: Supple. CARDIAC: Tachycardia. Soft systolic murmur heard throughout. RESPIRATORY: Rhonchi bilaterally with faint expiratory wheezing. ABDOMEN: Soft, nontender, nondistended. EXTREMITIES: Trace pretibial edema. NEUROLOGIC: Patient can awake to voice, but difficulty with following commands or answering any questions. I have not yet to see her move any extremities. There is a slight squeeze of her left hand, but unable to use her right hand. DIAGNOSTIC STUDIES/LAB DATA: White count 10.4, hemoglobin 12.9, hematocrit 41 , platelets 247. INR is 0.82. Blood gas, pH of 7.11, pCO2 greater than 125. Sodium 142, potassium 5.1, chloride 97, bicarb 41, BUN 14, creatinine 0.48, glucose 252. Troponin 0.04. CRP 32.66. BNP 576. Urine shows blood, positive nitrites, leukocytes, flu negative. Chest x-ray, prominent opacifications bilaterally in the upper lobes. EKG shows sinus tachycardia with left bundle-branch block that is unchanged. ASSESSMENT AND PLAN: This is an 82-year-old female with a past medical history of chronic obstructive pulmonary disease, history of metabolic encephalopathy with a recent prolonged hospitalization, who presents to the emergency room via EMS for respiratory distress, found to be in hypercapnic respiratory failure. 1. Hypercapnic respiratory failure. Assessment: It is unclear what started, it is possible she was encephalopathic leading to her respiratory failure. I do not have an ammonia level on her yet. It is possible that she aspirated, contributing to her hypercapnia. She does not have a white count. No fever. She has end-stage chronic obstructive pulmonary disease. I am not sure if she uses BiPAP at home, if she has been compliant or not with this. I have not been able get in touch with the family with the phone calls that are in the system. Plan: We will admit her to the ICU, continue her on BiPAP. We will repeat an ABG in an hour. We will continue her on Zosyn to cover her for question of aspiration pneumonia. Continue on the Solu-Medrol in the setting of chronic obstructive pulmonary disease exacerbation, continue on DuoNeb and albuterol. Keep her n.p.o. in the setting of her somnolence and respiratory failure. Will follow up on her ammonia level and try to touch base with family members to discuss her goals of care. 2. Chronic medical problems. As mentioned, we will hold her p.o. medications. We will check her blood glucose q.4 hours with a sliding scale. If her ammonia levels are elevated, we will either do lactulose via NG, although the family refused this last time or via enema, but would discuss with family prior to doing this. Altered mental status likely all attributed to her hypercapnic respiratory failure; however, she was able to squeeze my left hand and not my right. We will check a head CT as a precautionary. 3. FEN. N.p.o. in the setting of respiratory distress and somnolence. 4. DVT prophylaxis. The patient's score is moderate risk. We will place her on heparin subcu t.i.d. 5. Code status. Her last MOLST form on her last admission back in August showed she is a DNR/DNI. We will need to contact the family in the morning again to confirm this. PATIENT TIME: Greater than 60 minutes was spent doing the history and physical , more than half time spent in direct patient contact and critical care time. [id number]/[facility] #: [id number] JORDAN
--- NOTE | 2017-09-11 12:09 | PN ---
Progress Note - Progress Note Date of Service: 09/11/17 Note: CRITICAL CARE MEDICINE Date: 09/11/17 Time: 1100 SUBJECTIVE: Patient seen and examined. son at bedside. PHYSICAL EXAM: Vital Signs: Reviewed. Neurologic: awake, communicating some but does not have capacity HEENT: pupils equal. mm dry Cardiovascular: S1 S2 distant, 3/6 aníbal Respiratory: very decreased with poor phases. not tachypneic Abdomen: Soft, nt. Extremities: Warmish LABS: Reviewed. IMAGING: Reviewed. MEDICATIONS: Reviewed. ASSESSMENT: 82 F Acute on chronic hypoxic and hypercarbic resp failure Cor pulmonale with acute on chronic right heart failure COPD with exac Pleural effusions Congestive hepatopathy Hepatic encephalopathy PLAN: dying. taken off bipap rescue and lacks ventilation; 15L O2 to hold sat Not uncomfortable but fading from lethargy towards coma soon Start morphine gtt and allow her to be comfortable on o2 family at bedside and in agreement will likely pass today Disposition: ICU Code Status: Comfort Critical Care Time: 35min Serenity Andrews DO
[2017-09-11] MEDS: Morphine INJ* 2 MG/ML 1 ML CARPUJECT IV PRN ×2 (12:10→13:46)
--- NOTE | 2017-09-11 12:11 | RAD ---
INDICATION: Shortness of breath. COMPARISON: Comparison is made with a prior chest x-ray study from August 24, 2017. TECHNIQUE: A portable view of the chest was obtained. FINDINGS: The heart appears moderately enlarged and unchanged. There is diffuse prominence of the interstitial markings and small a moderate sized bilateral pleural effusions most consistent with congestive heart failure. IMPRESSION: FINDINGS MOST CONSISTENT WITH CONGESTIVE HEART FAILURE.
[2017-09-11] MEDS: Morphine PCA ADULT* 5 MG/ML 30 ML PCA SCH ×2 (12:47→12:59)
[2017-09-11 13:40] VITALS: BP 140/81
[2017-09-11] MEDS ORDERED: Morphine PCA ADULT* 5 MG/ML 30 ML PCA SCH (15:38)
--- NOTE | 2017-09-11 15:49 | DS ---
CRITICAL CARE MEDICINE DISCHARGE SUMMARY ADMISSION DATE: 09/11/2017 ICU ADMISSION DATE: 09/11/2017 ICU DISCHARGE DATE: 09/11/2017 PRIMARY CARE PROVIDER: Ayanna. REFERRING PHYSICIAN: Celestine. DIAGNOSIS: 1. Acute on chronic hypoxic and hypercarbic respiratory failure. 2. Cor pulmonale. 3. Congestive hepatopathy. 4. Hepatic encephalopathy. 5. Severe emphysema. 6. Chronic obstructive pulmonary disease exacerbation. HOSPITAL COURSE: 82 year old female, with recent hospital stay for exacerbation of bullous emphysema and cor pulmonale leading to hepatic congestion and hepatic coma, returning again after very short stay at home (after declining rehab needs) with recurrence of above. She was initially rescued with bipap overnight and hepatic encephalopathy still escalating. She remained more comfortable with better breathing but not regain capacity. No reversible condition, just support as before and family agreed with comfort care measures only, given her overall ailments and she was made comfort care. Patient passed with family at bedside. DISPOSITION: . Serenity Andrews DO
== END 2017-09-11 15:55 | disposition expired | DRG 441 ==
LOC: ED 00:55 → ICU 02:37
PROVIDERS: ADMIT Pediatrics; ATTEND Internal Medicine Critical Care Medicine
PROC: 5A09357 Assistance with Respiratory Ventilation, Less than 24 Consecutive Hours, Continuous Positive Airway Pressure (ICD-10-PCS; principal; 2017-09-11)
DX: K72.90 Hepatic failure, unspecified without coma (principal); J96.21 Acute and chronic respiratory failure with hypoxia; K85.10 Biliary acute pancreatitis without necrosis or infection; J96.22 Acute and chronic respiratory failure with hypercapnia; J44.1 Chronic obstructive pulmonary disease with (acute) exacerbation; I27.81 Cor pulmonale (chronic); I11.0 Hypertensive heart disease with heart failure; I50.813 Acute on chronic right heart failure; E11.9 Type 2 diabetes mellitus without complications; I44.7 Left bundle-branch block, unspecified; Z66 Do not resuscitate; M81.0 Age-related osteoporosis without current pathological fracture; Z51.5 Encounter for palliative care; E78.5 Hyperlipidemia, unspecified; Z85.3 Personal history of malignant neoplasm of breast; Z79.84 Long term (current) use of oral hypoglycemic drugs; Z79.4 Long term (current) use of insulin; Z79.899 Other long term (current) drug therapy; Z88.8 Allergy status to other drugs, medicaments and biological substances
CPT/HCPCS: 36415; 36600; 70450; 71045; 80048; 80053; 81003; 81015; 82140; 82550; 82803; 83605; 83880; 84484; 85025; 85610; 85730; 86140; 87040; 87077; 87086; 87186; 87205; 87502; 87641; 93005; 94640; 94660; 99285; A9270-GY; J1644; J1940; J2270; J2543; J2920; J2930; J3475